=== PATIENT | female | born 1985 | race Caucasian/White ===

== ENCOUNTER 2016-09-24 22:22 | Emergency (ER) | payer OTHER ==
[~2016-09-24] VITALS: Ht 170.2 cm; Wt 96.1 kg
[~2016-09-24 22:22] MED LIST: ACET-1256 PO; IBUP-1050 PO
[2016-09-24 22:27] VITALS: Ht 170.2 cm; Wt 96.1 kg
[2016-09-24] MEDS ORDERED: ONDANSETRON INJ 2 MG/ML 2 ML VIAL IV STA (22:48)
[2016-09-24] MEDS ORDERED: MoRPHine SULFATE 4 MG/ML 1 ML CARP\\VIAL IV STA (22:48)
[2016-09-24] MEDS ORDERED: SODIUM CHLORIDE 0.9% 1000ML 1,000 ML IV STA (22:48)
--- NOTE | 2016-09-24 23:02 | EMERGENCY ROOM VISIT NOTE ---
ED Visit Note First contact with patient: 22:30 I have seen and examined this patient with Andi Jarrett and generally agree with the treatment plan as discussed. Problem List Medical Problems: (1) Asthma Status: Chronic (2) Hand pain Status: Resolved (3) Migraine Unspecified W/O Intract Mgrn W/O Status Migrainosus Status: Chronic Surgical Problems: (1) Ear surgery Status: Resolved Current/Historical Medications Scheduled PRN Acetaminophen (Tylenol), 500 MG PO Q4H PRN for Pain Ibuprofen (Advil), 400-600 MG PO Q6 PRN for Pain Allergies Coded Allergies: Cefepime (Verified Allergy, Intermediate, redness to chest, hives, itching , 09/24/16) Sulfa Antibiotics (Verified Allergy, Intermediate, HIVES, 09/24/16) Yeast (Unverified Allergy, Mild, 09/24/16) Hydrocortisone (Verified Allergy, Unknown, Hives/Rash, 09/24/16) Otic Suspenion Sulfamethoxazole w/Trimethoprim (Verified Allergy, Unknown, HIVES, 09/24/16) Nitrofurantoin (Verified Adverse Reaction, Unknown, ITCHING, 09/24/16) Vital Signs Date Time Temp Pulse Resp B/P Pulse Ox O2 Delivery O2 Flow Rate FiO2 09/24/16 22:27 37.0 80 16 138/83 98 Room Air Laboratory Results Test 09/24/16 22:48 Departure Information Referrals Oskar Weber M.D. (PCP) Patient Instructions A Signature Page
[2016-09-24 23:13] LABS: BASO % 0.2 %; BASO ABS # 0.02 K/uL (0-0.2); COMPLETE YES; HEMATOCRIT 38.5 % (37-47); IG% 0.1 %; LYMPH % 26.8 %; LYMPH ABS # 2.29 K/uL (1.2-3.4); MEAN CELL VOLUME 79.7 fL (80-100); MEAN CORPUSCULAR HEMOGLOBIN 27.7 pg (25-34); MEAN CORPUSCULAR HGB CONC 34.8 g/dl (32-36); MEAN PLATELET VOLUME 10.9 fL (7.4-10.4); MONO % 5.7 %; NEUT % 64.2 %; PLATELET COUNT 183 K/uL (130-400); RED BLOOD COUNT 4.83 M/uL (4.2-5.4); WHITE BLOOD COUNT 8.53 K/uL (4.8-10.8)
[2016-09-24 23:29] LABS: URINE APPEARANCE CLEAR (CLEAR); URINE BILIRUBIN NEG (NEG); URINE COLOR YELLOW; URINE NITRITE NEG (NEG); URINE SPECIFIC GRAVITY 1.018 (1.000-1.030); UROBILINOGEN NEG (NEG); ZZUR CULT IF INDIC CLEAN CATCH NO
[2016-09-24 23:30] LABS: MANUAL MICROSCOPIC REQUIRED? NO; REVIEW REQ? NO
[2016-09-24 23:33] LABS: BUN/CREATININE RATIO 6.9 (10-20); CALCIUM 8.9 mg/dl (8.5-10.1); CREATININE 0.74 mg/dl (0.60-1.20); POTASSIUM 3.8 mmol/L (3.5-5.1)
[2016-09-24 23:36] LABS: ALB/GLOB RATIO 1.1 (0.9-2)
[2016-09-25] MEDS ORDERED: OXYCODONE IR HOME PACK PO ONE (01:45)
[2016-09-25] MEDS ORDERED: OXYC1TAB3 PO (01:51)
--- NOTE | 2016-09-25 01:52 | EMERGENCY ROOM VISIT NOTE ---
History First contact with patient: 22:30 Chief Complaint: ABDOMINAL PAIN Stated Complaint: LOWER R SIDE PAIN Nursing Triage Summary: Triage Notes: Pt complains of right abdominal pain. It started 1 hour ago. +nausea. History of Present Illness The patient is a 31 year old female who presents to the Emergency Department by private vehicle with her significant other for evaluation of her pelvic pain. She reports onset of RIGHT-sided lower pelvic pain which started earlier today. She reports a long standing history of ovarian cysts. She had a surgery remove an ovarian cyst on the LEFT side as well as a fibroid on the RIGHT side. This was performed in April at [place]. She reports that she has been a symptom medicines. She rates her current discomfort as a 10/10. She is taking nothing [id number] for her symptoms. She denies any fevers, chills, headaches, dizziness, light headedness, chest pain, palpitations, short of breath. She denies any vaginal bleeding. She reports no vaginal discharge or drainage. She is uncertain of her status, but reports that there should be no chance for . She denies any other prior abdominal surgeries otherwise. Review of Systems A complete 10-point Review of Systems was discussed with the patient, with pertinent positives and negatives listed in the History of Present Illness. All remaining Review of Systems questions can be considered negative unless otherwise specified. Past Medical/Surgical History Medical Problems: (1) Asthma (2) Hand pain (3) Migraine Unspecified W/O Intract Mgrn W/O Status Migrainosus Surgical Problems: (1) Ear surgery Family History Cancer FH: heart disease Gallbladder disease Hypertension Social History Smoking Status: Never Smoker Smokeless Tobacco Use: No Alcohol Use: none Drug Use: none Marital Status: Housing Status: lives with significant other Occupation Status: employed Current/Historical Medications Scheduled PRN Acetaminophen (Tylenol), 500 MG PO Q4H PRN for Pain Ibuprofen (Advil), 400-600 MG PO Q6 PRN for Pain Oxycodone Ir (Roxicodone Ir), 1-2 TAB PO Q4H PRN for Pain Allergies Coded Allergies: Cefepime (Verified Allergy, Intermediate, redness to chest, hives, itching , 09/24/16) Sulfa Antibiotics (Verified Allergy, Intermediate, HIVES, 09/24/16) Yeast (Unverified Allergy, Mild, 09/24/16) Hydrocortisone (Verified Allergy, Unknown, Hives/Rash, 09/24/16) Otic Suspenion Sulfamethoxazole w/Trimethoprim (Verified Allergy, Unknown, HIVES, 09/24/16) Nitrofurantoin (Verified Adverse Reaction, Unknown, ITCHING, 09/24/16) Physical Exam Vital Signs Date Time Temp Pulse Resp B/P Pulse Ox O2 Delivery O2 Flow Rate FiO2 09/25/16 02:00 37.0 65 16 115/73 98 09/25/16 01:56 65 16 115/73 98 Room Air 09/25/16 00:28 63 16 115/79 98 Room Air 09/24/16 23:32 78 16 132/80 98 Room Air 09/24/16 22:27 37.0 80 16 138/83 98 Room Air Pain Rating (0-10): 10 Physical Exam VITAL SIGNS - Vital signs and nursing notes were reviewed. GENERAL - 31-year-old female appearing her stated age who is in no acute distress. Communicates well with provider and answers questions appropriately. LUNGS - Chest wall symmetric without accessory muscle use, intercostals retractions, or central cyanosis. Normal vesicular breath sounds CTA B/L. No wheezes, rales, or rhonchi appreciated. CARDIAC - RRR with S1/S2. No murmur, rubs, or gallops appreciated. ABDOMEN - Abdominal contour flat and without pulsations or visible masses. BS normoactive all four quadrants. Moderate tenderness to palpation appreciated in the RIGHT Lower abdomen. No guarding. No Rebound Tenderness. Negative Rovsing' s. Negative Schuster's. No palpable masses, hepatosplenomegaly, or ascites noted. PSYCH - A&Ox3 and cooperates fully with examiner. Pt is very pleasant and interacts well with examiner. Medical Decision & Procedures ER Provider Diagnostic Interpretation: Radiological imaging and reports were reviewed by myself. Radiologist's Interpretation per [facility] as follows: US PELVIC/ENDOVAG: Compared to 04/01/2016. Bilateral ovarian flow visualized. Right ovarian cysts measuring up to 3.6 cm. Previously noted left ovarian dermoid has been removed. Probable small follicle in the left ovary. Heterogeneous area a the right uterine fundus. Trace pelvic free fluid. Laboratory Results 09/24/16 23:00 Red Blood Count 4.83, Mean Corpuscular Volume 79.7, Mean Corpuscular Hemoglobin 27.7, Mean Corpuscular Hemoglobin Concent 34.8, Mean Platelet Volume 10.9, Neutrophils (%) (Auto) 64.2, Lymphocytes (%) (Auto) 26.8, Monocytes (%) (Auto) 5.7, Eosinophils (%) (Auto) 3.0, Basophils (%) (Auto) 0.2, Neutrophils # (Auto) 5.46, Lymphocytes # (Auto) 2.29, Monocytes # (Auto) 0.49, Eosinophils # (Auto) 0.26, Basophils # (Auto) 0.02 09/24/16 23:00 Test 09/24/16 23:00 White Blood Count 8.53 K/uL (4.8-10.8) Red Blood Count 4.83 M/uL (4.2-5.4) Hemoglobin 13.4 g/dL (12.0-16.0) Hematocrit 38.5 % (37-47) Mean Corpuscular Volume 79.7 fL (80-100) Mean Corpuscular Hemoglobin 27.7 pg (25-34) Mean Corpuscular Hemoglobin Concent 34.8 g/dl (32-36) Platelet Count 183 K/uL (130-400) Mean Platelet Volume 10.9 fL (7.4-10.4) Neutrophils (%) (Auto) 64.2 % Lymphocytes (%) (Auto) 26.8 % Monocytes (%) (Auto) 5.7 % Eosinophils (%) (Auto) 3.0 % Basophils (%) (Auto) 0.2 % Neutrophils # (Auto) 5.46 K/uL (1.4-6.5) Lymphocytes # (Auto) 2.29 K/uL (1.2-3.4) Monocytes # (Auto) 0.49 K/uL (0.11-0.59) Eosinophils # (Auto) 0.26 K/uL (0-0.5) Basophils # (Auto) 0.02 K/uL (0-0.2) RDW Standard Deviation 38.6 fL (36.4-46.3) RDW Coefficient of Variation 13.3 % (11.5-14.5) Immature Granulocyte % (Auto) 0.1 % Immature Granulocyte # (Auto) 0.01 K/uL (0.00-0.02) Urine Color YELLOW Urine Appearance CLEAR (CLEAR) Urine pH 8.0 (4.5-7.5) Urine Specific [place] 1.018 (1.000-1.030) Urine Protein NEG (NEG) Urine Glucose (UA) NEG (NEG) Urine Ketones NEG (NEG) Urine Occult Blood NEG (NEG) Urine Nitrite NEG (NEG) Urine Bilirubin NEG (NEG) Urine Urobilinogen NEG (NEG) Urine Leukocyte Esterase NEG (NEG) Urine Test NEG (NEG) Anion Gap 9.0 mmol/L (3-11) Est Creatinine Clear Calc Drug Dose 132.3 ml/min Estimated GFR () 126.0 Estimated GFR (Non- 108.7 BUN/Creatinine Ratio 6.9 (10-20) Calcium Level 8.9 mg/dl (8.5-10.1) Magnesium Level 2.0 mg/dl (1.8-2.4) Total Bilirubin 0.4 mg/dl (0.2-1) Aspartate Amino Transf (AST/SGOT) 31 U/L (15-37) Alanine Aminotransferase (ALT/SGPT) 34 U/L (12-78) Alkaline Phosphatase 81 U/L (45-117) Total Protein 7.4 gm/dl (6.4-8.2) Albumin 3.9 gm/dl (3.4-5.0) Globulin 3.5 gm/dl (2.5-4.0) Albumin/Globulin Ratio 1.1 (0.9-2) Lipase 213 U/L (73-393) Human Chorionic Gonadotropin, Quant < 1 mIU/mL Medications Administered Medications (Trade) Dose Ordered Sig/Jared Route Start Time Stop Time Status Last Admin Dose Admin Sodium Chloride (Nss 1000ml) 1,000 ml @ 250 mls/hr Q4H STAT IV 09/24/16 22:48 09/25/16 02:47 DC 09/24/16 23:26 250 MLS/HR Morphine Sulfate (MoRPHine SULFATE INJ) 4 mg NOW STAT IV 09/24/16 22:48 09/24/16 22:50 DC 09/24/16 23:27 4 MG Ondansetron HCl (Zofran Inj) 4 mg NOW STAT IV 09/24/16 22:48 09/24/16 22:50 DC 09/24/16 23:26 4 MG Oxycodone HCl (Roxicodone Immediate Rel 5MG Home Pack) 1 homepack UD ONCE PO 09/25/16 01:45 09/25/16 01:46 DC 09/25/16 01:52 1 HOMEPACK ED Course Patient was seen and evaluated by myself. Previous emergency room visit notes were reviewed. Labs were drawn, saline lock in place. The patient was hydrated with a 1000 mL normal saline bolus at a rate of 2 50 mL per hour. Patient was treated with 4 mg morphine and 4 mg Zofran for pain. Pelvic ultrasound was obtained. Laboratory results demonstrate no acute leukocytosis, worrisome anemia, or bandemia. The patient has no significant electrolyte abnormalities. Ultrasound results as above. Laboratory results and imaging studies were reviewed with the patient who acknowledges understanding. The patient was encouraged to follow up with her HEAT TREATING OPERATOR from today's visit. She was provided a prescription for oxycodone for breakthrough pain at home. She was educated on worrisome symptoms for return visit to the emergency department. Patient discharged home afebrile and in good condition. Medical Decision Given the patient's presentation and exam findings, I did elect to perform the above-mentioned workup. The patient presents today with pain in the RIGHT pelvic area. Her pain is moderately reproducible in this area. Her pain is not the upper abdomen or umbilical area. She has no fever leukocytosis. Ultrasound pelvic area was obtained which demonstrated a moderate sized ovarian cyst. The patient has history of similar cysts in the past. Her urine does not suggest infection. She is not . Patient's pain was adequately controlled in the emergency department. She will be provided OxyIR for breakthrough pain at home. She will follow-up with her HEAT TREATING OPERATOR from today's visit. She will return for any changing or worsening symptoms. Patient discharged home afebrile and in good condition. In the evaluation and treatment of this patient, the following differential diagnoses were considered: Ovarian torsion, rupturing cyst, ectopic, , appendicitis, diverticulitis, diverticulosis, amongst others. Impression Primary Impression: Ovarian cyst Additional Impression: Pelvic pain Departure Information Dispostion Home / Self-Care Condition GOOD Prescriptions Oxycodone Ir (Roxicodone Ir) 5 Mg Tab 1-2 TAB PO Q4H Y for Pain, #20 TAB For Initial Treatment Prov: Andi Jarrett, HUSAM 09/25/16 Referrals Oskar Weber M.D. (PCP) Patient Instructions A Signature Page Additional Instructions You have been treated in the Emergency Department your Pelvic Pain - RIGHT Ovarian Cyst. You have been prescribed OxyIR to be used for pain control. This is a narcotic medication. You cannot drive or consume alcohol while on this medicine. This medicine should only be used for pain that cannot be controlled with over-the- counter pain medicines. For pain control, you can use the following [id number] medicines (if >12 yo): - Regular strength (325mg/tab) Tylenol (acetaminophen) 2 tabs every 4-6 hours as needed. Do not exceed 12 tablets in a 24 hour period. Avoid taking more than 4 grams (4000 mg) of Tylenol per day. This includes any other sources of acetaminophen you may take on a regular basis. - Regular strength (200 mg/tab) Advil (ibuprofen) 1-2 tabs every 4-6 hours as needed. Do not exceed a dose of 3200 mg per day. Drink plenty of water and stay well hydrated. Follow-up with your HEAT TREATING OPERATOR tomorrow as discussed. Return to the emergency department if your symptoms persist despite treatment plan outlined above or if the following symptoms occur: increased fevers, chills , worsening nausea/vomiting, blood in your stool or urine.
[2016-09-25 02:00] VITALS: BP 115/73; PULSE 65; TEMP 37; O2SAT 98
--- NOTE | 2016-09-25 07:34 | DIAGNOSTIC IMAGING REPORT ---
ULTRASOUND OF THE PELVIS CLINICAL HISTORY: Right pelvic pain. COMPARISON STUDY: Pelvic CT dated 05/15/2016. Pelvic ultrasound dated 04/01/2016. TECHNIQUE: Real-time, grayscale, and color flow sonography of the pelvis is performed both transabdominally and endovaginally. Images are reviewed in the transverse and longitudinal planes. FINDINGS: Uterus: The uterus is normal in size and echotexture, measuring 8.3 x 4.2 x 5.3 cm. Endometrium: The endometrium is normal in appearance, and the endometrial stripe is normal in thickness measuring up to 0.6 cm. Ovaries: The right ovary is normal in size and morphology. The left ovary appears diminutive. The previously identified left ovarian dermoid is no longer seen. The right ovary measures 4.4 x 3.0 x 3.6 cm and the left ovary measures 1.3 x 1.1 x 1.8 cm. There are numerous bilateral ovarian follicles. A 3.6 cm cyst is incidentally noted in the right ovary. Normal Doppler waveforms are shown within both ovaries. Pelvis: There is trace free fluid in the cul-de-sac. No concerning adnexal lesion is seen. IMPRESSION: 1. No acute sonographic abnormality is seen in the pelvis. 2. A 3.6 cm right ovarian cyst is incidentally noted. There is no sonographic evidence of ovarian torsion at the time of examination. 3. There is trace and likely physiologic free fluid in the cul-de-sac. Electronically signed by: Morgan Zepeda M.D. 09/25/2016 7:32 AM Dictated Date/Time: 09/25/2016 7:29 AM
[2017-05-03] MEDS ORDERED: IBUP-1459 PO (05:21)
[2017-05-25] MEDS ORDERED: ACET-1256 PO (00:49)
== END 2016-09-25 02:01 | disposition home or self-care (01) ==
LOC: C.EDB 22:22
DX: N83.201 Unspecified ovarian cyst, right side (principal); R10.2 Pelvic and perineal pain; J45.909 Unspecified asthma, uncomplicated; Z88.1 Allergy status to other antibiotic agents; Z88.2 Allergy status to sulfonamides; Z88.3 Allergy status to other anti-infective agents

== ENCOUNTER 2016-10-10 22:04 | Emergency (ER) | payer OTHER ==
[~2016-10-10] VITALS: Ht 171.5 cm; Wt 94.6 kg
[~2016-10-10 22:04] MED LIST changes: -IBUP-1050 PO; +OXYC1TAB3 PO
[2016-10-10 22:12] VITALS: TEMP 36.7; Ht 171.5 cm; Wt 94.6 kg
[2016-10-10] MEDS ORDERED: NAPR-1161 PO (22:17)
[2016-10-10] MEDS ORDERED: SODIUM CHLORIDE 0.9% 1000ML 1,000 ML IV STA ×2 (22:30)
[2016-10-10] MEDS ORDERED: MoRPHine SULFATE 4 MG/ML 1 ML CARP\\VIAL IV STA (22:30)
[2016-10-10] MEDS ORDERED: DiphenhydrAMINE HCL 50 MG/ML VIAL IV STA (22:30)
[2016-10-10] MEDS ORDERED: METOCLOPRAMIDE HCL INJ 5 MG/ML 2 ML VIAL IV STA (22:30)
[2016-10-10] MEDS ORDERED: HYDROmorphone INJ 0.5 MG/0.5 ML SYR IV STA (22:34)
[2016-10-10 22:58] LABS: BASO % 0.2 %; BASO ABS # 0.02 K/uL (0-0.2); COMPLETE YES; EOS % 2.4 %; HEMATOCRIT 38.4 % (37-47); IG% 0.2 %; LYMPH % 27.6 %; LYMPH ABS # 2.38 K/uL (1.2-3.4); MEAN CELL VOLUME 79.8 fL (80-100); MEAN CORPUSCULAR HEMOGLOBIN 27.7 pg (25-34); MEAN CORPUSCULAR HGB CONC 34.6 g/dl (32-36); MEAN PLATELET VOLUME 11.5 fL (7.4-10.4); MONO % 5.7 %; NEUT % 63.9 %; PLATELET COUNT 184 K/uL (130-400); RED BLOOD COUNT 4.81 M/uL (4.2-5.4); WHITE BLOOD COUNT 8.62 K/uL (4.8-10.8)
[2016-10-10 23:08] LABS: MANUAL MICROSCOPIC REQUIRED? YES; URINE APPEARANCE TURBID (CLEAR); URINE BILIRUBIN NEG (NEG); URINE COLOR RED; URINE NITRITE NEG (NEG); URINE SPECIFIC GRAVITY >= 1.030 (1.000-1.030); UROBILINOGEN NEG (NEG)
[2016-10-10] MEDS ORDERED: OPTIRAY 320 IV PRN (23:15)
[2016-10-10 23:17] LABS: ALT/SGPT 25 U/L (12-78); BLOOD UREA NITROGEN 12 mg/dl (7-18); BUN/CREATININE RATIO 16.1 (10-20); CARBON DIOXIDE 26 mmol/L (21-32); CHLORIDE 108 mmol/L (98-107); CREATININE 0.72 mg/dl (0.60-1.20); GLUCOSE 82 mg/dl (70-99); POTASSIUM 3.9 mmol/L (3.5-5.1); SODIUM 143 mmol/L (136-145)
[2016-10-10 23:20] LABS: ALKALINE PHOSPHATASE 76 U/L (45-117); AST/SGOT 19 U/L (15-37)
[2016-10-10 23:22] LABS: REVIEW REQ? NO
[2016-10-10 23:25] LABS: URINE RBC >30 /hpf (0-4)
[2016-10-10 23:29] LABS: URINE BACTERIA NEG (NEG)
[2016-10-10 23:38] VITALS: O2SAT 96
[2016-10-10 23:39] LABS: PREG INTERNAL NEGATIVE QC NEG CLEAR BACKGROUND; PREG INTERNAL POSITIVE QC POS CONTROL LINE
[2016-10-11] MEDS ORDERED: KETOROLAC TROMETHAMINE 30 MG/ML VIAL IV STA (01:45)
[2016-10-11] MEDS ORDERED: ONDANSETRON HOME PACK 4MG OD TAB PO ONE (02:00)
--- NOTE | 2016-10-11 02:02 | EMERGENCY ROOM VISIT NOTE ---
ED Visit Note First contact with patient: 22:26 The patient was seen and examined with Maribel Esqueda PA-C. I agree with the history, physical and findings. Please see the note for disposition and details.
--- NOTE | 2016-10-11 02:09 | EMERGENCY ROOM VISIT NOTE ---
History First contact with patient: 22:26 Chief Complaint: ABDOMINAL PAIN Stated Complaint: SEVERE LOWER SIDE PAIN Nursing Triage Summary: pt reports right lower abd pain that she has had for 2-3 weeks, worse tonight with associated pain on the left lower side and diarrhea. reports she saw OBGYN on Wednesday, "but they weren't able to find anything." denies vomiting. denies urinary symptoms. states pain is 10/10. denies pervious medical problems. denies chance of . pt states she has her period presently. History of Present Illness The patient is a 31 year old female who presents to the Emergency Room with complaints of right lower quadrant pain described as aching, ranging in severity currently 9/10. Nothing makes it better or worse. Patient denies chest pain, dyspnea, fever, chills, vomiting, urinary symptoms, vaginal itching or discharge. No back pain. She is currently on her menstrual cycle. She does not normally get menstrual cramps this severe. Review of Systems See HPI for pertinent positives & negatives. A total of 10 systems reviewed and were otherwise negative. Past Medical/Surgical History Medical Problems: (1) Asthma (2) Hand pain (3) Migraine Unspecified W/O Intract Mgrn W/O Status Migrainosus Surgical Problems: (1) Ear surgery Family History Cancer FH: heart disease Gallbladder disease Hypertension Social History Smoking Status: Never Smoker Smokeless Tobacco Use: No Alcohol Use: none Drug Use: none Marital Status: Housing Status: lives with family, lives with significant other Occupation Status: employed Current/Historical Medications Scheduled Naproxen Sodium (Naproxen Sodium Ds), 550 MG PO DIRECTED Scheduled PRN Acetaminophen (Tylenol), 500 MG PO Q4H PRN for Pain Allergies Coded Allergies: Cefepime (Verified Allergy, Intermediate, redness to chest, hives, itching , 10/10/16) Sulfa Antibiotics (Verified Allergy, Intermediate, HIVES, 10/10/16) Yeast (Unverified Allergy, Mild, 10/10/16) Hydrocortisone (Verified Allergy, Unknown, Hives/Rash, 10/10/16) Otic Suspenion Sulfamethoxazole w/Trimethoprim (Verified Allergy, Unknown, HIVES, 10/10/16 ) Nitrofurantoin (Verified Adverse Reaction, Unknown, ITCHING, 10/10/16) Physical Exam Vital Signs Date Time Temp Pulse Resp B/P Pulse Ox O2 Delivery O2 Flow Rate FiO2 10/11/16 00:31 62 18 107/68 96 Room Air 10/10/16 23:45 64 10/10/16 23:39 65 18 127/89 96 Room Air 10/10/16 23:38 96 Room Air 10/10/16 22:12 36.7 87 20 137/83 99 Room Air Physical Exam VITALS: Vitals are noted on the nurse's note and reviewed by myself. Vital signs stable. GENERAL: Pleasant female, in no acute distress, nondiaphoretic, well-developed well-nourished. SKIN: The skin was without rashes, erythema, edema, or bruising. There is no tenting of the skin. Capillary reflex less than 2 seconds. HEAD: Normocephalic atraumatic. EARS: External auditory canals clear, tympanic membranes pearly mcgovern without erythema or effusion bilaterally. EYES: Pupils equal round and reactive to light and accommodation. Conjunctivae without injection, sclerae without icterus. Extraocular movements intact. NOSE: Patent, turbinates without inflammation or discharge. MOUTH: Mucous membranes moist. Pharynx without erythema or exudate. Uvula midline. Airway patent. Tongue does not deviate. NECK: Supple without nuchal rigidity. No lymphadenopathy. No thyromegaly. Cervical spine is nontender. No JVD. HEART: Regular rate and rhythm without murmurs gallops or rubs. LUNGS: Clear to auscultation bilaterally without wheezes, rales or rhonchi. No dullness to percussion. No retractions or accessory muscle use. ABDOMEN: Positive bowel sounds x 4. Normal tympanic percussion. Soft, tender to palpation right lower quadrant, no CVA tenderness without masses or organomegaly. Schuster sign negative. No guarding or rebound tenderness. MUSCULOSKELETAL: No muscle atrophy, erythema, or edema noted. NEURO: Patient was alert and oriented to person place and time. Normal sensation to light and sharp touch. No focal neurological deficits. Medical Decision & Procedures Laboratory Results 10/10/16 22:45 Red Blood Count 4.81, Mean Corpuscular Volume 79.8, Mean Corpuscular Hemoglobin 27.7, Mean Corpuscular Hemoglobin Concent 34.6, Mean Platelet Volume 11.5, Neutrophils (%) (Auto) 63.9, Lymphocytes (%) (Auto) 27.6, Monocytes (%) (Auto) 5.7, Eosinophils (%) (Auto) 2.4, Basophils (%) (Auto) 0.2, Neutrophils # (Auto) 5.50, Lymphocytes # (Auto) 2.38, Monocytes # (Auto) 0.49, Eosinophils # (Auto) 0.21, Basophils # (Auto) 0.02 10/10/16 22:45 Test 10/10/16 22:45 White Blood Count 8.62 K/uL (4.8-10.8) Red Blood Count 4.81 M/uL (4.2-5.4) Hemoglobin 13.3 g/dL (12.0-16.0) Hematocrit 38.4 % (37-47) Mean Corpuscular Volume 79.8 fL (80-100) Mean Corpuscular Hemoglobin 27.7 pg (25-34) Mean Corpuscular Hemoglobin Concent 34.6 g/dl (32-36) Platelet Count 184 K/uL (130-400) Mean Platelet Volume 11.5 fL (7.4-10.4) Neutrophils (%) (Auto) 63.9 % Lymphocytes (%) (Auto) 27.6 % Monocytes (%) (Auto) 5.7 % Eosinophils (%) (Auto) 2.4 % Basophils (%) (Auto) 0.2 % Neutrophils # (Auto) 5.50 K/uL (1.4-6.5) Lymphocytes # (Auto) 2.38 K/uL (1.2-3.4) Monocytes # (Auto) 0.49 K/uL (0.11-0.59) Eosinophils # (Auto) 0.21 K/uL (0-0.5) Basophils # (Auto) 0.02 K/uL (0-0.2) RDW Standard Deviation 37.5 fL (36.4-46.3) RDW Coefficient of Variation 12.9 % (11.5-14.5) Immature Granulocyte % (Auto) 0.2 % Immature Granulocyte # (Auto) 0.02 K/uL (0.00-0.02) Urine Color RED Urine Appearance TURBID (CLEAR) Urine pH 6.0 (4.5-7.5) Urine Specific [place] >= 1.030 (1.000-1.030) Urine Protein 1+ (NEG) Urine Glucose (UA) NEG (NEG) Urine Ketones NEG (NEG) Urine Occult Blood 3+ (NEG) Urine Nitrite NEG (NEG) Urine Bilirubin NEG (NEG) Urine Urobilinogen NEG (NEG) Urine Leukocyte Esterase NEG (NEG) Urine RBC >30 /hpf (0-4) Urine WBC 10-30 /hpf (0-5) Urine Epithelial Cells >30 /lpf (0-5) Urine Bacteria NEG (NEG) Anion Gap 9.0 mmol/L (3-11) Est Creatinine Clear Calc Drug Dose 136.2 ml/min Estimated GFR () 130.2 Estimated GFR (Non- 112.4 BUN/Creatinine Ratio 16.1 (10-20) Calcium Level 9.0 mg/dl (8.5-10.1) Total Bilirubin 0.3 mg/dl (0.2-1) Direct Bilirubin < 0.1 mg/dl (0-0.2) Aspartate Amino Transf (AST/SGOT) 19 U/L (15-37) Alanine Aminotransferase (ALT/SGPT) 25 U/L (12-78) Alkaline Phosphatase 76 U/L (45-117) Total Protein 7.3 gm/dl (6.4-8.2) Albumin 4.5 gm/dl (3.4-5.0) Lipase 384 U/L (73-393) Human Chorionic Gonadotropin, Qual NEG (NEG) Medications Administered Medications (Trade) Dose Ordered Sig/Jared Route Start Time Stop Time Status Last Admin Dose Admin Sodium Chloride 1,000 ml @ 999 mls/hr Q1H1M STAT IV 10/10/16 22:30 10/10/16 23:30 DC 10/10/16 23:31 999 MLS/HR Sodium Chloride (Nss 1000ml) 1,000 ml @ 200 mls/hr Q5H STAT IV 10/10/16 22:30 10/11/16 03:29 10/11/16 01:24 200 MLS/HR Metoclopramide HCl (Reglan Inj) 10 mg NOW STAT IV 10/10/16 22:30 10/10/16 22:32 DC 10/10/16 23:36 10 MG Diphenhydramine HCl (Benadryl Inj) 25 mg NOW STAT IV 10/10/16 22:30 10/10/16 22:32 DC 10/10/16 23:34 25 MG Hydromorphone HCl (Dilaudid Inj) 0.5 mg NOW STAT IV 10/10/16 22:34 10/10/16 22:35 DC 10/10/16 23:32 0.5 MG Ketorolac Tromethamine (Toradol Inj) 30 mg NOW STAT IV 10/11/16 01:45 10/11/16 01:46 DC 10/11/16 01:52 30 MG ED Course Prior records/ancillary studies reviewed. Triage Nursing notes reviewed. Additional history obtained from family The patient's history was concerning for abdominal pain. Differential diagnosis: Etiologies such as appendicitis, diverticulitis, PUD, biliary pathology, UTI, pancreatitis, obstruction, mesenteric ischemia, aortic pathology, infections, inflammatory bowel disease, renal colic, as well as others were entertained. Physical examination findings: As above. ER treatment provided: Zofran, morphine, Toradol On reassessment the patient felt better. Diagnostics interpreted by me: The labs revealed no leukocytosis. Negative urine negative hCG Imaging studies: CT ABDOMEN & PELVIS: Comparison CT of the abdomen and pelvis 10/01/2016. The appendix is diminutive in size without evidence of surrounding inflammatory change. No free fluid. No free air. The bowel is normal in caliber. The liver, spleen, pancreas, gallbladder and kidneys are unremarkable. Stable appearance of the right ovary. Bibasilar atelectasis. Radiologist: Himanshu Han MD Exam and history significant with abdominal pain most likely related to menstrual cycle. Patient had unremarkable workup as above. Negative hCG. No leukocytosis. She was advised to rest, stay well-hydrated and to follow-up with family care in a day or 2 or here in the ER sooner for abdominal pain, fevers, vomiting, worsening signs or symptoms or as needed.By the evaluation outlined above emergent etiologies such as appendicitis, diverticulitis, PUD, biliary pathology, UTI, pancreatitis, obstruction, mesenteric ischemia, aortic pathology, infections, inflammatory bowel disease, renal colic, as well as others were deemed relatively unlikely. The pt informed about the findings as listed above. All questions were answered and pleased with the treatment. Return instructions were outlined and the patient was discharged in stable condition. Referral: The patient was referred back to their primary care physician for follow-up in 2 to 3 days for a recheck of the current condition. Case reviewed by attending Medical Decision as above Impression Primary Impression: Right lower quadrant abdominal pain Departure Information Referrals Oskar Weber M.D. (PCP) Patient Instructions My [facility]
[2016-10-11 02:16] VITALS: BP 110/77; PULSE 69; O2SAT 97
--- NOTE | 2016-10-11 07:25 | DIAGNOSTIC IMAGING REPORT ---
APPENDICEAL ULTRASOUND CLINICAL HISTORY: Right lower quadrant abdominal pain COMPARISON STUDY: 11/30/2015 FINDINGS: The appendix was not visualized. There are no abnormal fluid collections within the right lower quadrant. IMPRESSION: Nonvisualization of the appendix. This study is therefore nondiagnostic in regards to acute appendicitis. Electronically signed by: Arturo Reyes M.D. 10/11/2016 7:23 AM Dictated Date/Time: 10/11/2016 7:23 AM
--- NOTE | 2016-10-11 07:49 | DIAGNOSTIC IMAGING REPORT ---
CT ABD/PELVIS IV AND ORAL CONT CLINICAL HISTORY: Severe generalized abdominal pain COMPARISON STUDY: 10/01/2016 TECHNIQUE: Following the IV administration of 94 mL of Optiray-320, CT scan of the abdomen and pelvis was performed from the lung bases to the proximal femurs. Images are reviewed in the axial, sagittal, and coronal planes. IV contrast was administered without complication. CT DOSE: 770.45 mGy.cm FINDINGS: Lower chest: There are bibasal atelectatic changes. Liver: The contrast-enhanced liver is normal in size, contour, and attenuation. There is no intrahepatic biliary ductal dilatation. The hepatic veins and portal veins are patent. Gallbladder: Unremarkable. Spleen: The spleen remains borderline enlarged measuring 11.7 cm Pancreas: Unremarkable. Adrenal glands: Unremarkable. Kidneys: There is symmetric renal cortical enhancement. The kidneys are normal in size without hydronephrosis. Bowel: There are no transition zones indicate bowel obstruction. There are no findings to indicate acute appendicitis. There is no evidence of acute diverticulitis. Peritoneum: There is no intraperitoneal free air or abdominal ascites. Vasculature: The abdominal aorta is normal in course and caliber. Adenopathy: None. Pelvic viscera: The right ovary remains mildly prominent likely contains multiple follicles. Skeletal structures: No destructive osseous lesions are seen. IMPRESSION: No acute intra-abdominal or pelvic findings. Bibasal atelectasis. No evidence of bowel obstruction. No evidence of free air. No evidence of acute appendicitis. Electronically signed by: Arturo Reyes M.D. 10/11/2016 7:48 AM Dictated Date/Time: 10/11/2016 7:44 AM
[2017-05-03] MEDS ORDERED: IBUP-1459 PO (05:21)
[2017-05-25] MEDS ORDERED: ACET-1256 PO (00:49)
== END 2016-10-11 02:16 | disposition home or self-care (01) ==
LOC: C.EDB 22:05 → C.EDC 10-11 02:16
DX: R10.31 Right lower quadrant pain (principal); J45.909 Unspecified asthma, uncomplicated; Z82.49 Family history of ischemic heart disease and other diseases of the circulatory system

== ENCOUNTER 2016-10-22 23:54 | Emergency (ER) | payer OTHER ==
[~2016-10-22] VITALS: Ht 170.2 cm; Wt 96.3 kg
[~2016-10-22 23:54] MED LIST changes: +NAPR-1161 PO; -OXYC1TAB3 PO
[2016-10-22 23:56] VITALS: BP 155/88; PULSE 79; TEMP 36.8; O2SAT 98; Ht 170.2 cm; Wt 96.3 kg
[2016-10-23] MEDS ORDERED: OXYC1TAB3 PO (00:15)
[2016-10-23] MEDS ORDERED: OXYCODONE IR HOME PACK PO ONE (00:15)
--- NOTE | 2016-10-23 02:01 | EMERGENCY ROOM VISIT NOTE ---
History Report prepared by Phyllis: Fatou Eldridge Under the Supervision of: Dr. Dioni Layton M.D. First contact with patient: 00:02 Chief Complaint: BACK PAIN Stated Complaint: BACK PAIN History of Present Illness The patient is a 31 year old female who presents to the Emergency Room with complaints of constant back pain beginning this morning. She woke up with back pain today. Movement exacerbates her pain and she rates her pain as a 10/10 in severity. She reports a history of a pinched nerve a couple of years ago. She did not do anything unusual to injure her back. The patient denies doing any heavy lifting or bending. She denies pain radiating down her legs. She denies numbness, weakness, fever, vomiting, abdominal pain, urinary symptoms, incontinence, and chance of . She also denies any recent falls. Source of History: patient Onset: this morning Position: back Symptom Intensity: 10/10 Timing: constant Modifying Factors (Worsening): movement Associated Symptoms: No fevers, No numbness, No urinary symptoms, No vomiting, No weakness Review of Systems See HPI for pertinent positives & negatives. A total of 10 systems reviewed and were otherwise negative. Past Medical & Surgical Medical Problems: (1) Asthma (2) Hand pain (3) Migraine Unspecified W/O Intract Mgrn W/O Status Migrainosus Surgical Problems: (1) Ear surgery Family History Cancer FH: heart disease Gallbladder disease Hypertension Social History Smoking Status: Never Smoker Alcohol Use: none Drug Use: none Marital Status: Housing Status: lives with family, lives with significant other Occupation Status: employed Current/Historical Medications Scheduled Naproxen Sodium (Naproxen Sodium Ds), 550 MG PO DIRECTED Scheduled PRN Acetaminophen (Tylenol), 500 MG PO Q4H PRN for Pain Oxycodone Ir (Roxicodone Ir), 5 MG PO Q4H PRN for Pain Allergies Coded Allergies: Cefepime (Verified Allergy, Intermediate, redness to chest, hives, itching , 10/23/16) Sulfa Antibiotics (Verified Allergy, Intermediate, HIVES, 10/23/16) Yeast (Unverified Allergy, Mild, 10/23/16) Hydrocortisone (Verified Allergy, Unknown, Hives/Rash, 10/23/16) Otic Suspenion Sulfamethoxazole w/Trimethoprim (Verified Allergy, Unknown, HIVES, 10/23/16) Nitrofurantoin (Verified Adverse Reaction, Unknown, ITCHING, 10/23/16) Physical Exam Vital Signs Date Time Temp Pulse Resp B/P Pulse Ox O2 Delivery O2 Flow Rate FiO2 10/22/16 23:56 36.8 79 18 155/88 98 Room Air Physical Exam Constitutional: Vital signs reviewed. Eyes: Pupils are equal round reactive to light. Conjunctiva are noninjected. ENT: Pharynx is clear without erythema or exudate. Mucous membranes are moist. Neck supple without meningeal signs. Respiratory: Clear to auscultation bilaterally. Breath sounds are equal bilaterally. Cardiovascular: Regular rate and rhythm. No rubs or gallops. GI: Soft, nondistended and nontender. Bowel sounds are present. Musculoskeletal: No peripheral edema. No lower extremity tenderness. No CVA tenderness. Positive straight leg raise bilaterally with perispinal muscle tenderness on the right side Integumentary: No cyanosis. Neurological: The patient is awake and alert. No focal deficits. Normal motor and sensation in the lower extremities. Psychiatric: Normal affect. Medical Decision & Procedures ED Course 0002: The patient was evaluated in room A11B. A complete history and physical exam was performed. 0014: I reviewed the patient on PDMP. She received Tylenol with codeine on . I talked to her about it. She states that she took 2 today but the did not help her pain. I advised her not to continue the Tylenol with codeine. I updated the patient on the treatment plan. I answered all pertaining questions that she had. She expressed understanding and verbalized agreement. The patient will be discharged home. 0015: Oxycodone HCl 1 homepack PO Medical Decision This is a 31-year-old female presents with low back pain. Differential diagnosis includes strain, lumbar disc disease, radiculopathy. I did perform a limited focused review of portions of the patient's old chart on the electronic medical record. The patient was here on Oct 10 for RLQ abdominal pain. She had a normal CT scan without signs of appendicitis and was discharged home. I did evaluate the patient as noted above. The patient is presenting with low back pain without any history of trauma. She does state that she has had a pinched nerve in the past. She is neurologically intact and has no signs of cauda equina syndrome. She denies any history of trauma and so I did not feel x -rays were indicated. She was given a prescription for oxycodone and advised not to take this with her codeine which she states was ineffective for her. She was discharged in good condition and given return instructions as outlined below. [place] Drug Monitoring Program Search Results: patient reviewed within database Impression Primary Impression: Low back pain Scribe Attestation The scribe's documentation has been prepared under my direct and personally reviewed by me in its entirety. I confirm that the note above accurately reflects all work, treatment, procedures, and medical decision making performed by me. Departure Information Dispostion Home / Self-Care Prescriptions Oxycodone Ir (Roxicodone Ir) 5 Mg Tab 5 MG PO Q4H Y for Pain, #20 TAB Prov: Dioni Layton M.D. 10/23/16 Referrals Oskar Weber M.D. (PCP) Forms HOME CARE DOCUMENTATION FORM, IMPORTANT VISIT INFORMATION Patient Instructions ED Back Pain Acute Chronic, My [facility] Additional Instructions You have been examined and treated today on an emergency basis only. This is not a substitute for, or an effort to provide, complete comprehensive medical care. It is impossible to recognize and treat all injuries or illnesses in a single emergency department visit. It is therefore important that you follow up closely with your physician. Call as soon as possible for an appointment. Return for worsening symptoms or if you develop fever, vomiting, abdominal pain , loss of control of your bowel or bladder, numbness or weakness to your legs, numbness to your private area, difficulty urinating, or any other concerning symptoms. Do not take the codeine with oxycodone. Problem Qualifiers Primary Impression: Low back pain Chronicity: acute Back pain laterality: unspecified Sciatica presence: unspecified whether sciatica present Qualified Codes: M54.5 - Low back pain
[2017-05-03] MEDS ORDERED: IBUP-1459 PO (05:21)
[2017-05-25] MEDS ORDERED: ACET-1256 PO (00:49)
== END 2016-10-23 00:25 | disposition home or self-care (01) ==
LOC: C.EDB 23:54 → C.EDA 10-23 00:25
DX: M54.5 Low back pain (principal); J45.909 Unspecified asthma, uncomplicated

== ENCOUNTER 2016-11-01 02:18 | Emergency (ER) | payer OTHER ==
[~2016-11-01] VITALS: Ht 170.2 cm; Wt 96.0 kg
[~2016-11-01 02:18] MED LIST changes: +OXYC1TAB3 PO
[2016-11-01 02:24] VITALS: TEMP 36.8; Ht 170.2 cm; Wt 96.0 kg
[2016-11-01] MEDS ORDERED: ACETTAB PO (02:34)
[2016-11-01] MEDS ORDERED: KETOROLAC TROMETHAMINE 30 MG/ML VIAL IV STA (02:37)
[2016-11-01 03:06] LABS: BASO % 0.1 %; BASO ABS # 0.01 K/uL (0-0.2); COMPLETE YES; EOS % 2.8 %; HEMATOCRIT 36.7 % (37-47); IG% 0.1 %; LYMPH % 33.2 %; LYMPH ABS # 2.38 K/uL (1.2-3.4); MANUAL MICROSCOPIC REQUIRED? YES; MEAN CELL VOLUME 78.9 fL (80-100); MEAN CORPUSCULAR HEMOGLOBIN 27.5 pg (25-34); MEAN CORPUSCULAR HGB CONC 34.9 g/dl (32-36); MEAN PLATELET VOLUME 11.1 fL (7.4-10.4); MONO % 7.4 %; NEUT % 56.4 %; PLATELET COUNT 180 K/uL (130-400); RED BLOOD COUNT 4.65 M/uL (4.2-5.4); URINE APPEARANCE SL CLOUDY (CLEAR); URINE BILIRUBIN NEG (NEG); URINE COLOR YELLOW; URINE NITRITE NEG (NEG); URINE SPECIFIC GRAVITY >= 1.030 (1.000-1.030); UROBILINOGEN NEG (NEG); WHITE BLOOD COUNT 7.17 K/uL (4.8-10.8)
[2016-11-01 03:11] LABS: REVIEW REQ? NO
[2016-11-01 03:13] LABS: URINE BACTERIA 1+ (NEG); URINE RBC >30 /hpf (0-4); URINE WBC 0 /hpf (0-5); ZZUR CULT IF INDIC CLEAN CATCH YES
[2016-11-01 03:22] LABS: BUN/CREATININE RATIO 10.6 (10-20); CALCIUM 8.5 mg/dl (8.5-10.1); CREATININE 0.8 mg/dl (0.60-1.20); POTASSIUM 3.5 mmol/L (3.5-5.1)
[2016-11-01 03:24] LABS: ALB/GLOB RATIO 1.2 (0.9-2)
[2016-11-01] MEDS ORDERED: ONDANSETRON INJ 2 MG/ML 2 ML VIAL IV STA (03:25)
[2016-11-01 03:30] LABS: BENZODIAZEPINE, URINE NEG (NEG); COCAINE,URINE NEG (NEG); PHENCYCLIDINE, URINE NEG (NEG)
[2016-11-01 04:29] VITALS: BP 112/79; PULSE 81; O2SAT 95
--- NOTE | 2016-11-01 23:21 | EMERGENCY ROOM VISIT NOTE ---
History First contact with patient: 02:27 Chief Complaint: FLANK PAIN Stated Complaint: RIGHT SIDE PAIN History of Present Illness The patient is a 31 year old female who presents to the Emergency Room with complaints of right-sided flank/low back pain worsening over the past one day. The patient states that she started her menstrual cycle today, and she took Midol at home without relief of symptoms. The patient has had similar pain in the past. Her last episode was one month ago, where she was also seen here in the department at the start of her menses. The patient has not had fever or chills. No chest pain or shortness of breath. She is not having pelvic pain. She rates her discomfort a 9/10 without radiation. Review of Systems More than 10 systems were reviewed and otherwise negative with the exception of history of present illness. Past Medical/Surgical History Medical Problems: (1) Asthma (2) Hand pain (3) Migraine Unspecified W/O Intract Mgrn W/O Status Migrainosus Surgical Problems: (1) Ear surgery Family History Cancer FH: heart disease Gallbladder disease Hypertension Social History Smoking Status: Never Smoker Alcohol Use: none Drug Use: none Marital Status: Housing Status: lives with family, lives with significant other Occupation Status: employed Current/Historical Medications Scheduled PRN Acetaminophen (Tylenol), 500 MG PO Q4H PRN for Pain Ckbtulqubhjma-Lpoxilwv-Flbddda (Midol Maximum Strength Me), 1 TAB PO UD PRN for Pain Naproxen Sodium (Naproxen Sodium Ds), 550 MG PO TID PRN for Pain Allergies Coded Allergies: Cefepime (Verified Allergy, Intermediate, redness to chest, hives, itching , 10/23/16) Sulfa Antibiotics (Verified Allergy, Intermediate, HIVES, 10/23/16) Yeast (Unverified Allergy, Mild, 10/23/16) Hydrocortisone (Verified Allergy, Unknown, Hives/Rash, 10/23/16) Otic Suspenion Sulfamethoxazole w/Trimethoprim (Verified Allergy, Unknown, HIVES, 10/23/16) Nitrofurantoin (Verified Adverse Reaction, Unknown, ITCHING, 10/23/16) Physical Exam Vital Signs Date Time Temp Pulse Resp B/P Pulse Ox O2 Delivery O2 Flow Rate FiO2 11/01/16 04:29 81 18 112/79 95 11/01/16 02:24 36.8 87 18 128/74 98 Room Air Pain Rating (0-10): 2.0 Physical Exam VITALS: Vitals are noted on the nurse's note and reviewed by myself. Vital signs stable. GENERAL: Well-developed, well-nourished, white female, who is in no acute distress and resting comfortably. Patient is cooperative with the examination. HEAD: Normocephalic atraumatic. HEART: Regular rate and rhythm without murmurs gallops or rubs. LUNGS: Clear to auscultation bilaterally without wheezes, rales or rhonchi. No retractions or accessory muscle use. ABDOMEN: Positive normal bowel sounds x 4. Soft, nontender, without masses or organomegaly. No guarding or rebound tenderness. MUSCULOSKELETAL: No muscle atrophy, erythema, or edema noted. Full range of motion without joint tenderness in all extremities. No CVA tenderness or significant lower lumbar spine tenderness. NEURO: Patient was alert and oriented to person place and time. CN II through XII grossly intact. Deep tendon reflexes 2+ throughout. Medical Decision & Procedures Laboratory Results 11/01/16 02:51 Red Blood Count 4.65, Mean Corpuscular Volume 78.9, Mean Corpuscular Hemoglobin 27.5, Mean Corpuscular Hemoglobin Concent 34.9, Mean Platelet Volume 11.1, Neutrophils (%) (Auto) 56.4, Lymphocytes (%) (Auto) 33.2, Monocytes (%) (Auto) 7.4, Eosinophils (%) (Auto) 2.8, Basophils (%) (Auto) 0.1, Neutrophils # (Auto) 4.04, Lymphocytes # (Auto) 2.38, Monocytes # (Auto) 0.53, Eosinophils # (Auto) 0.20, Basophils # (Auto) 0.01 11/01/16 02:51 Test 11/01/16 02:51 White Blood Count 7.17 K/uL (4.8-10.8) Red Blood Count 4.65 M/uL (4.2-5.4) Hemoglobin 12.8 g/dL (12.0-16.0) Hematocrit 36.7 % (37-47) Mean Corpuscular Volume 78.9 fL (80-100) Mean Corpuscular Hemoglobin 27.5 pg (25-34) Mean Corpuscular Hemoglobin Concent 34.9 g/dl (32-36) Platelet Count 180 K/uL (130-400) Mean Platelet Volume 11.1 fL (7.4-10.4) Neutrophils (%) (Auto) 56.4 % Lymphocytes (%) (Auto) 33.2 % Monocytes (%) (Auto) 7.4 % Eosinophils (%) (Auto) 2.8 % Basophils (%) (Auto) 0.1 % Neutrophils # (Auto) 4.04 K/uL (1.4-6.5) Lymphocytes # (Auto) 2.38 K/uL (1.2-3.4) Monocytes # (Auto) 0.53 K/uL (0.11-0.59) Eosinophils # (Auto) 0.20 K/uL (0-0.5) Basophils # (Auto) 0.01 K/uL (0-0.2) RDW Standard Deviation 36.4 fL (36.4-46.3) RDW Coefficient of Variation 12.7 % (11.5-14.5) Immature Granulocyte % (Auto) 0.1 % Immature Granulocyte # (Auto) 0.01 K/uL (0.00-0.02) Urine Color YELLOW Urine Appearance SL CLOUDY (CLEAR) Urine pH 6.0 (4.5-7.5) Urine Specific [place] >= 1.030 (1.000-1.030) Urine Protein 1+ (NEG) Urine Glucose (UA) NEG (NEG) Urine Ketones NEG (NEG) Urine Occult Blood 3+ (NEG) Urine Nitrite NEG (NEG) Urine Bilirubin NEG (NEG) Urine Urobilinogen NEG (NEG) Urine Leukocyte Esterase NEG (NEG) Urine RBC >30 /hpf (0-4) Urine WBC 0 /hpf (0-5) Urine Epithelial Cells >30 /lpf (0-5) Urine Bacteria 1+ (NEG) Anion Gap 12.0 mmol/L (3-11) Est Creatinine Clear Calc Drug Dose 122.3 ml/min Estimated GFR () 114.7 Estimated GFR (Non- 98.9 BUN/Creatinine Ratio 10.6 (10-20) Calcium Level 8.5 mg/dl (8.5-10.1) Total Bilirubin 0.3 mg/dl (0.2-1) Aspartate Amino Transf (AST/SGOT) 18 U/L (15-37) Alanine Aminotransferase (ALT/SGPT) 25 U/L (12-78) Alkaline Phosphatase 73 U/L (45-117) Total Protein 7.1 gm/dl (6.4-8.2) Albumin 3.9 gm/dl (3.4-5.0) Globulin 3.2 gm/dl (2.5-4.0) Albumin/Globulin Ratio 1.2 (0.9-2) Lipase 256 U/L (73-393) Urine Opiates Screen POS (NEG) Urine Methadone, Qualitative NEG (NEG) Urine Barbiturates NEG (NEG) Urine Phencyclidine (PCP) Level NEG (NEG) Ur Amphetamine/Methamphetamine NEG (NEG) MDMA (Ecstasy) Screen NEG (NEG) Urine Benzodiazepines Screen NEG (NEG) Urine Cocaine Metabolite NEG (NEG) Urine Marijuana (THC) NEG (NEG) Medications Administered Medications (Trade) Dose Ordered Sig/Jared Route Start Time Stop Time Status Last Admin Dose Admin Ketorolac Tromethamine (Toradol Inj) 30 mg NOW STAT IV 11/01/16 02:37 11/01/16 02:39 DC 11/01/16 02:50 30 MG Ondansetron HCl (Zofran Inj) 4 mg NOW STAT IV 11/01/16 03:25 11/01/16 03:27 DC 11/01/16 03:25 4 MG ED Course Physical exam and history were performed. Nursing notes and EMR were reviewed. Patient appears to have right-sided flank pain/right sided low back pain for the past one day. She started her menstrual cycle today. The patient is well- known to the emergency department and has been seen several times with this and similar complaints. In the past 10 months she has had 8 CT scans of her abdomen and pelvis as well as several ultrasounds. The patient has a concerning history of drug-seeking behavior from previous visits. Because of this I did not initially order imaging studies. IV access was established and labs were obtained. The patient was given IV Toradol here in the department for comfort. The patient's blood work is as above and was reviewed. She does not have a significantly elevated white blood cell count, anemia, bandemia, or gross electrolyte imbalance. Lipase and transaminases are nondiagnostic. Urinalysis is without evidence of infection. Drug of abuse screen did show opioids, and the patient states that she has not taken any medication like this. Review of her drug monitoring profile shows that she has not had prescriptions of narcotics in several months. I am concerned at this discrepancy. Overall the patient appears stable for discharge home. With normal blood work and urine, as well as symptoms that have occurred several times in the past with no significant findings on imaging I feel that she should follow with her PCP and SCREEN TENDER HELPER. The patient will not be provided prescription pain medication, and instead should use nzxa-skf-dkmuwue ibuprofen and Tylenol. She was otherwise invited back to the ER with any new, worsening, or concerning symptoms. The chart was completed utilizing [employer] Speech Voice Recognition Software. Grammatical errors, random word insertions, pronoun errors, and incomplete sentences are an occasional consequence of this system due to software limitations, ambient noise, and hardware issues. Any formal questions or concerns about the content, text, or information contained within the body of this dictation should be directly addressed to the provider for clarification. . Medical Decision Differential diagnosis: Etiologies such as appendicitis, diverticulitis, PUD, biliary pathology, UTI, pancreatitis, obstruction, mesenteric ischemia, aortic pathology, infections, inflammatory bowel disease, renal colic, as well as others were entertained. Impression Primary Impression: Right flank pain Departure Information Dispostion Home / Self-Care Condition GOOD Forms HOME CARE DOCUMENTATION FORM, IMPORTANT VISIT INFORMATION Patient Instructions My [facility] Additional Instructions You were seen and evaluated today on an emergency basis only. This is not a substitute for, or an effort to provide, complete comprehensive medical care. It is not possible to recognize and treat all injuries or illnesses in a single emergency department visit. For this reason it is recommended that you followup with your primary care physician or SCREEN TENDER HELPER for ongoing care and evaluation. Contact the office this week for further management. For baseline pain relief you may alternate ibuprofen and acetaminophen every 4 hours for pain control. Take 600 mg ibuprofen (Advil) and then 4 hours later take 1000 mg acetaminophen (Tylenol). Do not take more than 3000 mg acetaminophen in a single day. You are welcome to return to the emergency department anytime with new, worsening, or concerning symptoms.
[2016-11-04 11:21] LABS: COD UR 66 NG/ML (CUTOFF=50); HYDROCOD UR NEGATIVE NG/ML (CUTOFF=50); HYDROMOR UR NEGATIVE NG/ML (CUTOFF=50); MORPHINE UR 557 NG/ML (CUTOFF=50); NORHYDROCODONE CONF UR NEGATIVE NG/ML (CUTOFF=50); OXYMORPH UR NEGATIVE NG/ML (CUTOFF=50)
[2017-05-03] MEDS ORDERED: IBUP-1459 PO (05:21)
[2017-05-25] MEDS ORDERED: ACET-1256 PO (00:49)
== END 2016-11-01 04:30 | disposition home or self-care (01) ==
LOC: C.EDB 02:19 → C.EDA 04:30
DX: R10.9 Unspecified abdominal pain (principal); J45.909 Unspecified asthma, uncomplicated; G43.909 Migraine, unspecified, not intractable, without status migrainosus

== ENCOUNTER 2016-11-05 22:19 | Emergency (ER) | payer OTHER ==
[~2016-11-05] VITALS: Ht 171.5 cm; Wt 94.9 kg
[~2016-11-05 22:19] MED LIST changes: +ACETTAB PO; -OXYC1TAB3 PO
[2016-11-05 22:29] VITALS: TEMP 37.1; Ht 171.5 cm; Wt 94.9 kg
[2016-11-05] MEDS ORDERED: METH4PAK PO (23:31)
--- NOTE | 2016-11-05 23:32 | EMERGENCY ROOM VISIT NOTE ---
ED Visit Note First contact with patient: 23:11 CHIEF COMPLAINT: Rash HISTORY OF PRESENT ILLNESS: This 31-year-old female patient presents to the emergency department ambulatory complaining of a rash to the face which started 2 weeks ago. The patient denies fever, chills, nausea, or loss of appetite. They deny any URI symptoms. The patient has tried Benadryl cream. The patient states the rash is itchy and burning and rates the discomfort as 8/10. No change in food, soap, detergents, or other environmental factors. No new medications. No weakness or numbness. REVIEW OF SYSTEMS: A 6 system review of systems was completed with positives and pertinent negatives listed in the HPI. ALLERGIES: See nursing notes of note, the patient has hydrocortisone listed as an allergy but she states she can take prednisone MEDICATIONS: Patient denies PMH: The patient denies SOCIAL HISTORY: The patient does not smoke. She lives locally PHYSICAL EXAM: Vital Signs: Reviewed Nurse's notes, vital signs stable. GENERAL : This is a 31-year-old female, in no acute distress, well-developed, well- nourished. SKIN: There are a few pustules on the face which may represent acne. There is a diffuse, very fine, dry, erythematous rash over the face which has the appearance of an atopic dermatitis. Capillary refill less than 2 seconds. EMERGENCY DEPARTMENT COURSE: The patient has a rash to her face for the last 2 weeks. Has the appearance of a contact or atopic dermatitis. She is encouraged to use a good moisturizing cream to the face. She was advised to try some antibiotic ointment on the pustules. She will be given a Medrol Dosepak. She should recheck with her family doctor next week. She should return with any worsening symptoms. Problem List Medical Problems: (1) Asthma Status: Chronic (2) Hand pain Status: Resolved (3) Migraine Unspecified W/O Intract Mgrn W/O Status Migrainosus Status: Chronic Surgical Problems: (1) Ear surgery Status: Resolved Current/Historical Medications Scheduled Methylprednisolone (Medrol Dosepak), 1 PKT PO UD Scheduled PRN Acetaminophen (Tylenol), 500 MG PO Q4H PRN for Pain Bejblprwwkskq-Mkubowgr-Khjfxnl (Midol Maximum Strength Me), 1 TAB PO UD PRN for Pain Naproxen Sodium (Naproxen Sodium Ds), 550 MG PO TID PRN for Pain Allergies Coded Allergies: Cefepime (Verified Allergy, Intermediate, redness to chest, hives, itching , 10/23/16) Sulfa Antibiotics (Verified Allergy, Intermediate, HIVES, 10/23/16) Yeast (Unverified Allergy, Mild, 10/23/16) Hydrocortisone (Verified Allergy, Unknown, Hives/Rash, 10/23/16) Otic Suspenion Sulfamethoxazole w/Trimethoprim (Verified Allergy, Unknown, HIVES, 10/23/16) Nitrofurantoin (Verified Adverse Reaction, Unknown, ITCHING, 10/23/16) Vital Signs Date Time Temp Pulse Resp B/P Pulse Ox O2 Delivery O2 Flow Rate FiO2 11/05/16 22:29 37.1 65 18 126/83 97 Room Air Medications Administered Medications (Trade) Dose Ordered Sig/Jared Route Start Time Stop Time Status Last Admin Dose Admin Prednisone (PredniSONE TAB) 20 mg NOW STAT PO 11/05/16 23:21 11/05/16 23:22 DC 11/05/16 23:30 20 MG Departure Information Impression Primary Impression: Dermatitis Dispostion Home / Self-Care Condition GOOD Prescriptions Methylprednisolone (MEDROL DOSEPAK) 4 Mg Gregorio 1 PKT PO UD, #1 PKT Prov: Peggy Joel PA-C 11/05/16 Referrals Oskar Weber M.D. (PCP) Patient Instructions ED Dermatitis Contact, My [facility] Additional Instructions Use a good moisturizing cream and apply it to the face 2-3 times daily for the next 5-7 days You may try antibiotic ointment on the small pustules Medrol Dosepak as prescribed Follow up with your family doctor next week if symptoms are not improving. Return with worsening symptoms.
[2016-11-06 00:04] VITALS: BP 126/82; PULSE 69; O2SAT 97
[2017-05-03] MEDS ORDERED: IBUP-1459 PO (05:21)
[2017-05-25] MEDS ORDERED: ACET-1256 PO (00:49)
== END 2016-11-06 00:04 | disposition home or self-care (01) ==
LOC: C.EDB 22:21 → C.EDA 11-06 00:04
DX: L30.9 Dermatitis, unspecified (principal); J45.909 Unspecified asthma, uncomplicated; G43.909 Migraine, unspecified, not intractable, without status migrainosus

== ENCOUNTER 2016-12-20 03:15 | Emergency (ER) | payer OTHER ==
[~2016-12-20] VITALS: Ht 170.2 cm; Wt 96.1 kg
[~2016-12-20 03:15] MED LIST changes: -ACETTAB PO; +ACETTAB43 PO
[2016-12-20 03:20] VITALS: Ht 170.2 cm; Wt 96.1 kg
[2016-12-20] MEDS ORDERED: SODIUM CHLORIDE 0.9% 1000ML 500 ML IV STA (03:36)
[2016-12-20] MEDS ORDERED: KETOROLAC TROMETHAMINE 30 MG/ML VIAL IV STA (03:36)
[2016-12-20] MEDS ORDERED: ONDANSETRON INJ 2 MG/ML 2 ML VIAL IV STA (03:36)
[2016-12-20] MEDS ORDERED: SODIUM CHLORIDE 0.9% 1000ML 1,000 ML IV STA (03:36)
--- NOTE | 2016-12-20 03:44 | EMERGENCY ROOM VISIT NOTE ---
History Report prepared by Phyllis: Aubrey Jay Under the Supervision of: Dr. Morgan Huang M.D. First contact with patient: 03:32 Chief Complaint: FLANK PAIN Stated Complaint: SEVERE SIDE PAIN History of Present Illness The patient is a 31 year old female who presents to the Emergency Room with complaints of sharp right sided flank pain that occurred tonight. She rates her pain a 10/10 in severity. The patient's pain has been intermittently present for the past few months. She notes today's pain is similar, but it is worse tonight. Her pain is radiating into her RLQ of her abdomen. The patient thinks that she may have had a kidney stone before, but is unsure. She has had 8 CT scans over the past 3 years and over 10 ultrasounds of her pelvis. They have never found a cause for her pain. She denies any trauma to her side. She is experiencing some trouble with urinating. She does not have any medical problems. She states that she is not . Source of History: patient Onset: tonight Position: back (flank) Symptom Intensity: 10/10 Quality: sharp Timing: worsening Associated Symptoms: + abdominal pain, + urinary symptoms Note: She denies any recent trauma to the area. Review of Systems See HPI for pertinent positives & negatives. A total of 10 systems reviewed and were otherwise negative. Past Medical & Surgical Medical Problems: (1) Asthma (2) Hand pain (3) Migraine Unspecified W/O Intract Mgrn W/O Status Migrainosus Surgical Problems: (1) Ear surgery Family History Cancer FH: heart disease Gallbladder disease Hypertension Social History Smoking Status: Never Smoker Alcohol Use: none Drug Use: none Marital Status: Housing Status: lives with family, lives with significant other Occupation Status: employed Current/Historical Medications Scheduled PRN Ibuprofen (Motrin), 400 MG PO TID PRN for Pain Naproxen Sodium (Naproxen Sodium Ds), 550 MG PO BID PRN for Pain Oxycodone Ir (Roxicodone Ir), 1-2 TAB PO Q4H PRN for Pain Allergies Coded Allergies: Cefepime (Verified Allergy, Intermediate, redness to chest, hives, itching , 10/23/16) Sulfa Antibiotics (Verified Allergy, Intermediate, HIVES, 10/23/16) Yeast (Unverified Allergy, Mild, 10/23/16) Hydrocortisone (Verified Allergy, Unknown, Hives/Rash, 10/23/16) Otic Suspenion Sulfamethoxazole w/Trimethoprim (Verified Allergy, Unknown, HIVES, 10/23/16) Nitrofurantoin (Verified Adverse Reaction, Unknown, ITCHING, 10/23/16) Physical Exam Vital Signs Date Time Temp Pulse Resp B/P Pulse Ox O2 Delivery O2 Flow Rate FiO2 12/20/16 06:44 36.7 74 16 126/68 97 Room Air 12/20/16 05:22 70 16 128/74 97 Room Air 12/20/16 03:20 36.7 87 18 140/78 98 Room Air Physical Exam GENERAL: Patient is in no acute distress. HEENT: No acute trauma, normocephalic atraumatic, mucous membranes moist, no nasal congestion, no scleral icterus. NECK: No stridor, no adenopathy, no meningismus, trachea is midline. LUNGS: Clear to auscultation bilaterally, no wheeze, no rhonchi, breath sounds equal. HEART: Without murmurs gallops or rubs, regular rate and rhythm. ABDOMEN: Soft, tender in the RLQ, bowel sounds positive, no hernias, no peritonitis. BACK: Right flank discomfort with percussion and palpation. No rash. EXTREMITIES: No cyanosis or edema, full range of motion of all the joints without pain or difficulty, no signs for acute trauma. NEUROLOGIC: Oriented x 3, no acute motor or sensory deficits, no focal weakness. SKIN: No rash, no jaundice, no diaphoresis. Medical Decision & Procedures ER Provider Diagnostic Interpretation: X ray results and stated below per my interpretation and radiologist interpretation. Other radiology results and stated below per my review and radiologist interpretation: US RENAL: No evidence of renal calculi. No hydronephrosis. Ureteral jets seen bilaterally in the bladder. Radiologist: Fco Abraham MD US PELVIC/ENDOVAG: Right ovary measures 5.3 x 4.2 x 3.5 cm and contains a 3.6 x 3.0 x 3.1 cm complex cyst, new from October 01 and 2016, likely a hemorrhagic cyst. Left ovary is not enlarged. Blood flow demonstrated in bilateral ovaries. The uterus is normal in size. The endometrium is within normal limits for a premenstrual female. No free fluid in the pelvis. Radiologist: Fco Abraham MD Laboratory Results 12/20/16 03:51 Red Blood Count 4.65, Mean Corpuscular Volume 78.7, Mean Corpuscular Hemoglobin 27.7, Mean Corpuscular Hemoglobin Concent 35.2, Mean Platelet Volume 10.4, Neutrophils (%) (Auto) 62.0, Lymphocytes (%) (Auto) 26.3, Monocytes (%) (Auto) 8.0, Eosinophils (%) (Auto) 3.1, Basophils (%) (Auto) 0.3, Neutrophils # (Auto) 4.79, Lymphocytes # (Auto) 2.03, Monocytes # (Auto) 0.62, Eosinophils # (Auto) 0.24, Basophils # (Auto) 0.02 12/20/16 03:51 Test 12/20/16 00:00 12/20/16 03:51 Urine Color YELLOW Urine Appearance CLOUDY (CLEAR) Urine pH 5.0 (4.5-7.5) Urine Specific [place] 1.034 (1.000-1.030) Urine Protein NEG (NEG) Urine Glucose (UA) NEG (NEG) Urine Ketones NEG (NEG) Urine Occult Blood 1+ (NEG) Urine Nitrite NEG (NEG) Urine Bilirubin NEG (NEG) Urine Urobilinogen NEG (NEG) Urine Leukocyte Esterase SMALL (NEG) Urine WBC (Auto) 10-30 /hpf (0-5) Urine RBC (Auto) 0-4 /hpf (0-4) Urine Hyaline Casts (Auto) 0 /lpf (0-5) Urine Epithelial Cells (Auto) >30 /lpf (0-5) Urine Bacteria (Auto) 1+ (NEG) Urine Yeast (Auto) PRESENT (NONE PRSENT) Urine Test NEG (NEG) White Blood Count 7.72 K/uL (4.8-10.8) Red Blood Count 4.65 M/uL (4.2-5.4) Hemoglobin 12.9 g/dL (12.0-16.0) Hematocrit 36.6 % (37-47) Mean Corpuscular Volume 78.7 fL (80-100) Mean Corpuscular Hemoglobin 27.7 pg (25-34) Mean Corpuscular Hemoglobin Concent 35.2 g/dl (32-36) Platelet Count 171 K/uL (130-400) Mean Platelet Volume 10.4 fL (7.4-10.4) Neutrophils (%) (Auto) 62.0 % Lymphocytes (%) (Auto) 26.3 % Monocytes (%) (Auto) 8.0 % Eosinophils (%) (Auto) 3.1 % Basophils (%) (Auto) 0.3 % Neutrophils # (Auto) 4.79 K/uL (1.4-6.5) Lymphocytes # (Auto) 2.03 K/uL (1.2-3.4) Monocytes # (Auto) 0.62 K/uL (0.11-0.59) Eosinophils # (Auto) 0.24 K/uL (0-0.5) Basophils # (Auto) 0.02 K/uL (0-0.2) RDW Standard Deviation 37.0 fL (36.4-46.3) RDW Coefficient of Variation 12.9 % (11.5-14.5) Immature Granulocyte % (Auto) 0.3 % Immature Granulocyte # (Auto) 0.02 K/uL (0.00-0.02) Anion Gap 6.0 mmol/L (3-11) Est Creatinine Clear Calc Drug Dose 153.0 ml/min Estimated GFR () 138.8 Estimated GFR (Non- 119.7 BUN/Creatinine Ratio 14.0 (10-20) Calcium Level 8.7 mg/dl (8.5-10.1) Total Bilirubin 0.4 mg/dl (0.2-1) Aspartate Amino Transf (AST/SGOT) 18 U/L (15-37) Alanine Aminotransferase (ALT/SGPT) 26 U/L (12-78) Alkaline Phosphatase 69 U/L (45-117) Total Protein 7.2 gm/dl (6.4-8.2) Albumin 4.2 gm/dl (3.4-5.0) Globulin 3.0 gm/dl (2.5-4.0) Albumin/Globulin Ratio 1.4 (0.9-2) Lipase 210 U/L (73-393) Laboratory results reviewed by me. Medications Administered Medications (Trade) Dose Ordered Sig/Jared Route Start Time Stop Time Status Last Admin Dose Admin Sodium Chloride (Nss 1000ml) 500 ml @ 999 mls/hr Q31M STAT IV 12/20/16 03:36 12/20/16 04:06 DC 12/20/16 04:03 999 MLS/HR Ondansetron HCl 4 mg 4 mg NOW STAT IV 12/20/16 03:36 12/20/16 03:39 DC 12/20/16 04:03 4 MG Sodium Chloride (Nss 1000ml) 1,000 ml @ 200 mls/hr Q5H STAT IV 12/20/16 03:36 12/20/16 06:52 DC 12/20/16 04:02 200 MLS/HR Morphine Sulfate (MoRPHine SULFATE INJ) 4 mg Q15M PRN IV 12/20/16 03:45 12/20/16 06:52 DC 12/20/16 05:22 4 MG Ketorolac Tromethamine (Toradol Inj) 30 mg NOW STAT IV 12/20/16 03:36 12/20/16 03:39 DC 12/20/16 04:03 30 MG Oxycodone HCl (Roxicodone Immediate Rel 5MG Home Pack) 1 homepack UD ONCE PO 12/20/16 06:30 12/20/16 06:31 DC 12/20/16 06:39 1 HOMEPACK ED Course 0332: The patient was evaluated in room B5. A complete history and physical exam was performed. 0336: Ordered Toradol Inj IV, Sodium Chloride 1000 ml @ 200 mls/hr IV, Zofran Inj 4 mg IV, Sodium Chloride 500 ml @ 999 mls/hr IV 0345: Ordered Morphine Sulfate 4 mg IV 0630: Ordered Oxycodone HCl 1 homepack PO 0636: Reevaluated the patient. Discussed results and discharge instructions: She verbalized understanding and agreement. The patient is ready for discharge. Medical Decision Differential diagnosis includes but is not limited to renal colic, ovarian cyst , ovarian torsion, appendicitis, UTI, , electrolyte imbalance, musculoskeletal pain, and shingles. There is no leukocytosis or concerning anemia. No significant electrolyte abnormality, kidney failure, hepatitis or pancreatitis. Urinalysis shows contamination, no obvious infection. testing is negative. Renal ultrasound shows no evidence for hydronephrosis. Pelvic ultrasound shows a hemorrhagic right ovarian cyst, no evidence for ovarian torsion. The patient received IV saline, IV morphine, IV Toradol and IV Zofran. She is more comfortable. The patient likely is having increased pain because of the hemorrhagic right ovarian cyst. She has chronic right sided flank and abdominal pain. She has had multiple images of the abdomen and pelvis via CT and ultrasound over the years. The patient is being discharged with Motrin, an OB follow-up, oxycodone for severe pain. If things are worsening, if she has fever, she can return for reassessment. [place] Drug Monitoring Program Search Results: patient reviewed within database Drug Monitoring Findings: She last received Oxycodone, 20 tabs, on the 23 of October. Impression Primary Impression: Right flank pain Additional Impressions: Ovarian cyst Right sided abdominal pain Scribe Attestation The scribe's documentation has been prepared under my direction and personally reviewed by me in its entirety. I confirm that the note above accurately reflects all work, treatment, procedures, and medical decision making performed by me. Departure Information Dispostion Home / Self-Care Prescriptions Oxycodone Ir (Roxicodone Ir) 5 Mg Tab 1-2 TAB PO Q4H Y for Pain, #8 TAB Prov: Morgan Huang M.D. 12/20/16 Referrals Oskar Weber M.D. (PCP) Forms HOME CARE DOCUMENTATION FORM, IMPORTANT VISIT INFORMATION Patient Instructions My [facility] Additional Instructions heat to the area may help tylenol for pain motrin every 6 hours for pain or use naproxen (aleve) use oxy ir 1 tab every 4 hours for severe pain return for fever or worsening symptoms follow [facility] ob to have the cyst rechecked--call for an appt wednesday Problem Qualifiers
[2016-12-20 04:05] LABS: BASO % 0.3 %; BASO ABS # 0.02 K/uL (0-0.2); COMPLETE YES; EOS % 3.1 %; HEMATOCRIT 36.6 % (37-47); IG% 0.3 %; LYMPH % 26.3 %; LYMPH ABS # 2.03 K/uL (1.2-3.4); MEAN CELL VOLUME 78.7 fL (80-100); MEAN CORPUSCULAR HEMOGLOBIN 27.7 pg (25-34); MEAN CORPUSCULAR HGB CONC 35.2 g/dl (32-36); MEAN PLATELET VOLUME 10.4 fL (7.4-10.4); PLATELET COUNT 171 K/uL (130-400); RED BLOOD COUNT 4.65 M/uL (4.2-5.4); WHITE BLOOD COUNT 7.72 K/uL (4.8-10.8)
[2016-12-20] MEDS: MoRPHine SULFATE 4 MG/ML 1 ML CARP\\VIAL IV PRN ×2 (04:05→05:22)
[2016-12-20 04:19] LABS: URINE APPEARANCE CLOUDY (CLEAR); URINE BILIRUBIN NEG (NEG); URINE COLOR YELLOW; URINE EPITHELIAL CELL AUTO >30 /lpf (0-5); URINE NITRITE NEG (NEG); URINE SPECIFIC GRAVITY 1.034 (1.000-1.030); UROBILINOGEN NEG (NEG); ZZUR CULT IF INDIC CLEAN CATCH YES
[2016-12-20 04:20] LABS: MANUAL MICROSCOPIC REQUIRED? NO; REVIEW REQ? YES
[2016-12-20 04:24] LABS: CALCIUM 8.7 mg/dl (8.5-10.1); CREATININE 0.64 mg/dl (0.60-1.20); POTASSIUM 3.7 mmol/L (3.5-5.1)
[2016-12-20 04:27] LABS: ALB/GLOB RATIO 1.4 (0.9-2)
[2016-12-20] MEDS ORDERED: OXYC1TAB3 PO (06:27)
[2016-12-20] MEDS ORDERED: OXYCODONE IR HOME PACK PO ONE (06:30)
[2016-12-20 06:44] VITALS: BP 126/68; PULSE 74; TEMP 36.7; O2SAT 97
--- NOTE | 2016-12-20 08:26 | DIAGNOSTIC IMAGING REPORT ---
EXAMINATION: RENAL ULTRASOUND CLINICAL HISTORY: Flank pain COMPARISON STUDY: CT scan dated 10/09/2016 FINDINGS: The right kidney measures 10.6 cm. The left kidney measures 10.7 cm. There is minimal prominence of the right renal collecting system without evidence of overt hydronephrosis. There are no renal masses. No bladder abnormalities are visualized. Bilateral ureteral jets were visualized. IMPRESSION : 1. No renal masses identified 2. Mild prominence the right renal collecting system without evidence of overt hydronephrosis Electronically signed by: Arturo Reyes M.D. 12/20/2016 8:24 AM Dictated Date/Time: 12/20/2016 8:23 AM
--- NOTE | 2016-12-20 08:28 | DIAGNOSTIC IMAGING REPORT ---
EXAMINATION: PELVIC ULTRASOUND (transabdominal and endovaginal scanning) CLINICAL HISTORY: Right-sided pelvic pain COMPARISON STUDY: 10/01/2016 FINDINGS: The uterus measured 7.9 x 3.9 x 5.4 cm.. The endometrial stripe measured 10 mm. The right ovary measured 42 x 35 x 53 mm. There is a complex 36 mm right ovarian cyst, likely hemorrhagic. A follow-up study in 6 weeks' time is recommended.. The left ovary measured 28 x 18 x 21 mm.. There is no ultrasonographic evidence of ovarian torsion. It should be noted that ovarian torsion can be present with normal Doppler ultrasonographic findings. There was no evidence of pathologic free pelvic fluid. IMPRESSION: Interval development of a complex 36 mm right ovarian cyst, likely representing a hemorrhagic cyst. Normal uterus and endometrium. Electronically signed by: Arturo Reyes M.D. 12/20/2016 8:27 AM Dictated Date/Time: 12/20/2016 8:25 AM
[2017-05-03] MEDS ORDERED: IBUP-1459 PO (05:21)
[2017-05-25] MEDS ORDERED: ACET-1256 PO (00:49)
== END 2016-12-20 06:46 | disposition home or self-care (01) ==
LOC: C.EDB 03:16
DX: R10.31 Right lower quadrant pain (principal); N83.209 Unspecified ovarian cyst, unspecified side; J45.909 Unspecified asthma, uncomplicated; Z82.49 Family history of ischemic heart disease and other diseases of the circulatory system

== ENCOUNTER 2017-01-18 21:44 | Emergency (ER) | payer OTHER ==
[~2017-01-18] VITALS: Ht 170.2 cm; Wt 97.4 kg
[~2017-01-18 21:44] MED LIST changes: -ACET-1256 PO; -ACETTAB43 PO; +OXYC1TAB3 PO
[2017-01-18 21:54] VITALS: TEMP 36.6; Ht 170.2 cm; Wt 97.4 kg
[2017-01-18] MEDS ORDERED: NORCO 5/325MG HOME PACK PO ONE (23:45)
--- NOTE | 2017-01-18 23:54 | EMERGENCY ROOM VISIT NOTE ---
History First contact with patient: 23:16 Chief Complaint: EAR PAIN Stated Complaint: SEVERE LEFT EAR PAIN SO BAD GET REALLY BAD HEADACH History of Present Illness The patient is a 31 year old female who presents to the Emergency Room with complaints of severe left ear pain on and off for the past 1-2 months. The patient states that her pain became worse tonight and she rates the discomfort a 9/10. She has had issues with her ears in the past and has seen Dr. Maldonado and had tubes placed in the ears previously. She states that she has been having headaches due to the ear pain. She has not seen her primary care provider for this. She denies any fevers, sore throat, neck pain, or cough. Review of Systems A complete 6 point review of systems was reviewed with the patient with pertinent positives and negatives as per history of present illness. All else were negative. Past Medical/Surgical History Medical Problems: (1) Asthma (2) Hand pain (3) Migraine Unspecified W/O Intract Mgrn W/O Status Migrainosus Surgical Problems: (1) Ear surgery Family History Cancer FH: heart disease Gallbladder disease Hypertension Social History Smoking Status: Never Smoker Alcohol Use: none Drug Use: none Marital Status: Housing Status: lives with family, lives with significant other Occupation Status: employed Current/Historical Medications Scheduled PRN Acetaminophen (Tylenol), 1,000 MG PO DIRECTED PRN for Pain Ibuprofen (Motrin), 400 MG PO TID PRN for Pain Naproxen Sodium (Naproxen Sodium Ds), 550 MG PO BID PRN for Pain Allergies Coded Allergies: Cefepime (Verified Allergy, Intermediate, redness to chest, hives, itching , 01/19/17) Sulfa Antibiotics (Verified Allergy, Intermediate, HIVES, 01/19/17) Yeast (Verified Allergy, Mild, 01/19/17) Hydrocortisone (Verified Allergy, Unknown, Hives/Rash, 01/19/17) Otic Suspenion Sulfamethoxazole w/Trimethoprim (Verified Allergy, Unknown, HIVES, 01/19/17) Nitrofurantoin (Verified Adverse Reaction, Unknown, ITCHING, 01/19/17) Physical Exam Vital Signs Date Time Temp Pulse Resp B/P Pulse Ox O2 Delivery O2 Flow Rate FiO2 01/19/17 00:55 70 20 107/78 100 Room Air 01/18/17 21:54 36.6 71 18 132/81 98 Room Air Physical Exam VITALS: Vitals are noted on the nurse's note and reviewed by myself. Vital signs stable. GENERAL: This is a 31-year-old female, in no acute distress, nondiaphoretic, well-developed well-nourished. SKIN: Capillary reflex less than 2 seconds. EARS: External auditory canals clear, tympanic membranes pearly mcgovern without erythema or effusion bilaterally. EYES: Pupils equal round and reactive to light and accommodation. Extraocular movements intact. NOSE: Patent, turbinates without inflammation or discharge. MOUTH: Mucous membranes moist. Tonsils are not enlarged. Pharynx without erythema or exudate. NECK: Supple without nuchal rigidity. No lymphadenopathy. HEART: Regular rate and rhythm without murmurs gallops or rubs. LUNGS: Clear to auscultation bilaterally without wheezes, rales or rhonchi. NEURO: Patient was alert and oriented to person place and time. Medical Decision & Procedures Medications Administered Medications (Trade) Dose Ordered Sig/Jared Route Start Time Stop Time Status Last Admin Dose Admin Acetaminophen/ Hydrocodone Bitart (Hamilton 5/325mg Home Pack) 1 homepack UD ONCE PO 01/18/17 23:45 01/18/17 23:47 DC 01/19/17 00:54 1 HOMEPACK Medical Decision The patient was evaluated as above. She does not appear to have an acute otitis. The patient does have chronic issues with her ears. She was given a home pack of [place] for pain but was educated that she will need to return to her primary care provider or ENT provider tomorrow for further evaluation of this pain. The patient verbalized understanding of my assessment and treatment plan and was discharged home in good condition. The patient was independently evaluated by Dr. Peters, ED attending physician , who agreed with my assessment and treatment plan. Impression Primary Impression: Left ear pain Departure Information Dispostion Home / Self-Care Condition GOOD Referrals Oskar Weber M.D. (PCP) Homer Maldonado D.O. Patient Instructions My [facility] Additional Instructions Follow-up with Dr. Maldonado or your PCP tomorrow. You have been prescribed Hamilton to be used for pain control. Take 1-2 tablets every 4-6 hours as needed for pain. This is a narcotic medication. You cannot drive or consume alcohol while on this medicine. This medicine should only be used for pain that cannot be controlled with cpsz-[id number]-[id number] pain medicines. For pain control, you can use the following rpzt-kin-gqxaodf medicines (if >12 yo): - Regular strength (325mg/tab) Tylenol (acetaminophen) 2 tabs every 4-6 hours as needed. Do not exceed 12 tablets in a 24 hour period. Avoid taking more than 4 grams (4000 mg) of Tylenol per day. This includes any other sources of acetaminophen you may take on a regular basis. - Regular strength (200 mg/tab) Advil (ibuprofen) 1-2 tabs every 4-6 hours as needed. Do not exceed a dose of 3200 mg per day.
[2017-01-19 00:55] VITALS: BP 107/78; PULSE 70; O2SAT 100
--- NOTE | 2017-01-19 04:19 | EMERGENCY ROOM VISIT NOTE ---
ED Visit Note First contact with patient: 23:16 I have personally evaluated and examined this patient. I agree with assessment and plan of Sully Armas PA-C.
[2017-05-03] MEDS ORDERED: IBUP-1459 PO (05:21)
[2017-05-25] MEDS ORDERED: ACET-1256 PO (00:49)
== END 2017-01-19 00:59 | disposition home or self-care (01) ==
LOC: C.EDB 21:45 → C.EDD 01-19 00:59
DX: H92.02 Otalgia, left ear (principal); R51 Headache; J45.909 Unspecified asthma, uncomplicated; Z82.49 Family history of ischemic heart disease and other diseases of the circulatory system; Z83.79 Family history of other diseases of the digestive system

== ENCOUNTER 2017-02-17 15:45 | Emergency (ER) | payer OTHER ==
[~2017-02-17] VITALS: Ht 167.6 cm; Wt 96.6 kg
[~2017-02-17 15:45] MED LIST changes: -OXYC1TAB3 PO
[2017-02-17 15:51] VITALS: TEMP 36.8; Ht 167.6 cm; Wt 96.6 kg
[2017-02-17] MEDS ORDERED: ACETAMINOPHEN 325 MG TAB ONE (16:02)
[2017-02-17] MEDS ORDERED: IBUPROFEN 600 MG TAB ONE (16:22)
[2017-02-17 16:48] VITALS: BP 121/80; PULSE 71; O2SAT 98
--- NOTE | 2017-02-17 20:57 | EMERGENCY ROOM VISIT NOTE ---
ED Visit Note First contact with patient: 15:51 Chief Complaint: I cut my right hand at work. History of Present Illness: Ms. Medrano is a 32-year-old white female who ambulates into the ED accompanied by her complaining of a laceration to the palm of the right hand. Patient reports approximately one hour ago she was at work and accidentally cut her hand on a glass that fell. She reports prior to arrival at the hospital she did control bleeding but did not wash the wound. Associated with her laceration she reports she is having a burning pain in the area the laceration. She rates her discomfort 9/10. The pain is nonradiating. The pain worsens with palpation. She has not identified any alleviating factors related to the pain. She has not taken any medications for pain prior to arrival at the hospital. She denies any associated symptoms including hand/ finger weakness/numbness/tingling. Review of Systems: As noted above in history of present illness. Past Medical History: (1) Asthma (2) Hand pain (3) Migraine Unspecified W/O Intract Mgrn W/O Status Migrainosus Surgical Problems: (1) Ear surgery Current Medications: Medications Dose Route/Sig Max Daily Dose Days Date Category Tylenol (Acetaminophen) 500 Mg Tab 1,000 Mg PO Q6H PRN 01/19/17 Reported Motrin (Ibuprofen) 400 Mg Tab 400 Mg PO TID PRN 12/20/16 Reported Allergies to Medications: Hydrocortisone, butrifyrabtoin, Bactrim, cefepime. Social History: Patient is currently employed; she feels safe in her home environment; she denies tobacco and alcohol use. Tetanus Immunization Status: Patient reports up-to-date. Physical Examination: Vital Signs: Date Time Temp Pulse Resp B/P Pulse Ox O2 Delivery O2 Flow Rate FiO2 02/17/17 16:48 71 18 121/80 98 02/17/17 15:51 36.8 83 18 149/92 98 Room Air GENERAL: 32-year-old female in mild to moderate distress due to pain, nontoxic- appearing, afebrile and hemodynamically stable. NEUROLOGICAL: Awake, alert and oriented to person, place and time. Answering questions appropriately and following commands. SKIN: Warm, dry and pink. Right Hand: Over the palmar surface of the hand in the medial border of the thenar eminence patient has a 3.2 cm superficial laceration. No active bleeding. RIGHT HAND: Soft tissue injury as noted above under SKIN. No gross bony deformity. Moderate tenderness over her laceration but no tenderness throughout the rest of the hand or fingers. Full range of motion in flexion and extension of all MCP, PIP and DIP joints. Throughout the hand and fingers the skin was warm and pink and capillary refill is brisk. She was able to distinguish light sensations through all dermatomes. ED Course: Patient is assessed as noted above. Patient was initially given 650 mg of acetaminophen by mouth for pain. She requested additional pain medication and was offered and accepted 600 mg of ibuprofen by mouth for pain. Wound Repair: Complexity: Basic Verbal consent was obtained after the risks and benefits were explained. The skin was prepped with betadine and a sterile field set. The wound was explored for foreign bodies and none found. Copious irrigation was performed using sterile saline. With direct pressure the bleeding subsided. Debridement was not performed. The wound edges were approximated using Steri-Strips. Hemostasis and excellent approximation was achieved. Sterile dressing applied. No complications and the patient tolerated the procedure well. Patient was educated about tonight's findings and instructed on her treatment plan; she verbalizes understanding and agreement with this plan. Clinical Impression: Laceration of the right hand. Disposition: Patient discharged home in stable condition; prior to departure he was reassessed and subjectively reported she pain free. Plan: Comfort measures, wound care, signs of infection were discussed with the patient. Patient was encouraged to follow-up with Workmen's Compensation or return to the ED for signs of infection. Additionally patient was signed off of work for 3 days and encouraged to follow- up with Workmen's Compensation for return to work instructions.
[2017-05-03] MEDS ORDERED: IBUP-1459 PO (05:21)
[2017-05-25] MEDS ORDERED: ACET-1256 PO (00:49)
== END 2017-02-17 16:49 | disposition home or self-care (01) ==
LOC: C.EDB 15:46 → C.EDD 16:49
DX: S61.411A Laceration without foreign body of right hand, initial encounter (principal); W25.XXXA Contact with sharp glass, initial encounter; Y92.89 Other specified places as the place of occurrence of the external cause; Y99.0 Civilian activity done for income or pay; J45.909 Unspecified asthma, uncomplicated; G43.909 Migraine, unspecified, not intractable, without status migrainosus

== ENCOUNTER 2017-04-01 23:39 | Emergency (ER) | payer OTHER ==
[~2017-04-01] VITALS: Ht 171.5 cm; Wt 96.8 kg
[~2017-04-01 23:39] MED LIST changes: +ACET-1256 PO; +IBUP-1459 PO; -NAPR-1161 PO
[2017-04-01 23:49] VITALS: TEMP 36.6; Ht 171.5 cm; Wt 96.8 kg
[2017-04-02] MEDS ORDERED: AMOX875T PO (00:21)
--- NOTE | 2017-04-02 00:29 | EMERGENCY ROOM VISIT NOTE ---
History First contact with patient: 00:12 Chief Complaint: EAR PAIN Stated Complaint: SEVERE LEFT EAR PAIN History of Present Illness The patient is a 32 year old female who presents to the Emergency Room with complaints of left ear pain for the past one day. The patient has a history of chronic left ear pain and follows with [facility]. The patient does not report fever or chills. She has tried Advil and Tylenol at home without relief of symptoms. She does not have sore throat, chest pain, chest tightness, or shortness of breath. Review of Systems More than 10 systems were reviewed and otherwise negative with the exception of history of present illness. Past Medical/Surgical History Medical Problems: (1) Asthma (2) Hand pain (3) Migraine Unspecified W/O Intract Mgrn W/O Status Migrainosus Surgical Problems: (1) Ear surgery Family History Cancer FH: heart disease Gallbladder disease Hypertension Social History Smoking Status: Never Smoker Alcohol Use: none Drug Use: none Marital Status: Housing Status: lives with family, lives with significant other Occupation Status: employed Current/Historical Medications Scheduled Amoxicillin & Pot Clavulanate (Augmentin 875-125 mg), 1 TAB PO BID Scheduled PRN Acetaminophen (Tylenol), 1,000 MG PO Q6H PRN for Pain Ibuprofen (Motrin), 400 MG PO TID PRN for Pain Allergies Coded Allergies: Cefepime (Verified Allergy, Intermediate, redness to chest, hives, itching , 04/01/17) Sulfa Antibiotics (Verified Allergy, Intermediate, HIVES, 04/01/17) Yeast (Verified Allergy, Mild, 04/01/17) Hydrocortisone (Verified Allergy, Unknown, Hives/Rash, 04/01/17) Otic Suspenion Sulfamethoxazole w/Trimethoprim (Verified Allergy, Unknown, HIVES, 04/01/17 ) Nitrofurantoin (Verified Adverse Reaction, Unknown, ITCHING, 04/01/17) Physical Exam Vital Signs Date Time Temp Pulse Resp B/P (MAP) Pulse Ox O2 Delivery O2 Flow Rate FiO2 04/01/17 23:49 36.6 81 20 133/89 100 Room Air Physical Exam VITALS: Vitals are noted on the nurse's note and reviewed by myself. Vital signs stable. GENERAL: Well-developed, well-nourished, white female, who is in no acute distress and resting comfortably. Patient is cooperative with the examination. HEAD: Normocephalic atraumatic. EARS: External ear normal. External auditory canals clear, tympanic membranes pearly mcgovern without erythema or effusion bilaterally. No mastoid tenderness. EYES: Pupils equal round and reactive to light and accommodation. Conjunctivae without injection, sclerae without icterus. Extraocular movements intact. NOSE: Patent, turbinates without inflammation or discharge. MOUTH: Mucous membranes moist. Tonsils are not enlarged. Pharynx without erythema, blood, or exudate. Uvula midline. Airway patent. NECK: Supple without nuchal rigidity. No lymphadenopathy. No thyromegaly. Cervical spine is nontender. HEART: Regular rate and rhythm without murmurs gallops or rubs. LUNGS: Clear to auscultation bilaterally without wheezes, rales or rhonchi. No retractions or accessory muscle use. Medical Decision & Procedures ED Course Physical exam and history were performed. Nursing notes, EMR, and Medication List were personally reviewed. Patient appears to have left ear pain for the past one day. On examination the patient appears well without significant acute findings. Evidently she has a history of chronic ear pain, and chronic otitis media. The patient will be started on Augmentin as her history appears somewhat complicated. She is to contact her ENT in the morning for further care. She was otherwise invited back to the ER with any new, worsening, or concerning symptoms. The chart was completed utilizing [employer] Speech Voice Recognition Software. Grammatical errors, random word insertions, pronoun errors, and incomplete sentences are an occasional consequence of this system due to software limitations, ambient noise, and hardware issues. Any formal questions or concerns about the content, text, or information contained within the body of this dictation should be directly addressed to the provider for clarification. . Medical Decision Differential diagnosis: Etiologies such as viral syndrome, otitis, pharyngitis, pneumonia, influenza, meningitis, urinary tract infection, sepsis, bacteremia, as well as others were entertained. Impression Primary Impression: Otalgia of left ear Departure Information Dispostion Home / Self-Care Condition GOOD Prescriptions Amoxicillin & Pot Clavulanate (Augmentin 875-125 mg) 1 Tab Tab 1 TAB PO BID for 9 Days, #18 TAB Prov: Doroteo Trimble PA-C 04/02/17 Referrals Oskar Weber M.D. (PCP) Forms HOME CARE DOCUMENTATION FORM, IMPORTANT VISIT INFORMATION Patient Instructions My [facility] Additional Instructions You were seen and evaluated today on an emergency basis only. This is not a substitute for, or an effort to provide, complete comprehensive medical care. It is not possible to recognize and treat all injuries or illnesses in a single emergency department visit. For this reason it is recommended that you followup with your clinical research manager for ongoing care and evaluation. For baseline pain relief you may alternate ibuprofen and acetaminophen every 4 hours for pain control. Take 600 mg ibuprofen (Advil) and then 4 hours later take 1000 mg acetaminophen (Tylenol). Do not take more than 3000 mg acetaminophen in a single day. Amoxicillin Clavulanate (Augmentin) 875mg: Take one pill twice daily for 10 total days. All antibiotics can cause diarrhea. If this occurs and you feel worse or it does not resolve in 1-2 days follow up with your doctor or return to the Emergency Department as this could be signs of serious underlying problems. Any medication can cause an allergic reaction, stop the pills immediately and return to the ER for rash, hives, breathing difficulties, or swelling. You are welcome to return to the emergency department anytime with new, worsening, or concerning symptoms.
[2017-04-02] MEDS ORDERED: AMOXICIL/CLAVU 875MG HOME PACK PO ONE (00:30)
[2017-04-02 00:31] VITALS: BP 94/81; PULSE 75; O2SAT 100
== END 2017-04-02 00:32 | disposition home or self-care (01) ==
LOC: C.EDB 23:41 → C.EDC 04-02 00:32
DX: H92.02 Otalgia, left ear (principal); J45.909 Unspecified asthma, uncomplicated; Z82.49 Family history of ischemic heart disease and other diseases of the circulatory system

== ENCOUNTER 2017-05-03 17:19 | Emergency (ER) | payer OTHER ==
[~2017-05-03] VITALS: Ht 170.2 cm; Wt 98.3 kg
[~2017-05-03 17:19] MED LIST changes: -ACET-1256 PO
[2017-05-03 17:22] VITALS: BP 119/78; TEMP 36.6; Ht 170.2 cm; Wt 98.3 kg
[2017-05-03] MEDS ORDERED: HYDROCODONE/ACETAMOPHEN 5/325MG TAB PO STA (17:33)
[2017-05-03] MEDS ORDERED: OFLOXACIN 0.3% OP SOLN 5 ML BTL OTL STA (17:37)
--- NOTE | 2017-05-03 17:47 | EMERGENCY ROOM VISIT NOTE ---
ED Visit Note First contact with patient: 17:26 CHIEF COMPLAINT: Left ear pain HISTORY OF PRESENT ILLNESS: This 32-year-old female who has a long standing history of ear problems presents to the ER with chief complaint of severe left ear pain which started this morning. The patient states that she has had decreased hearing in the ear since last week but today it got worse. She also started with the pain today. The patient denies any other URI symptoms. REVIEW OF SYSTEMS: 6 system review was performed and was negative unless stated otherwise in history of present illness. PMH: The patient is healthy; bilateral ear tubes, left knee surgery SOCIAL HISTORY: Patient lives with her significant other PHYSICAL EXAM: Vital Signs: Were reviewed Reviewed Nurse's notes. GENERAL: 32- year-old white female appears in no acute distress. MENTAL Status: Alert and oriented 3. EARS: Right tragus and auricle is nontender. Canal clear without erythema or edema. TMs with good light reflex. Left canal with some cerumen. I think a portion of the prior ear tube is embedded in the cerumen. Canal is slightly inflamed but minimal erythema. Partial TM with good light reflex. EMERGENCY COURSE: The patient was evaluated. The patient's pain was reviewed in the prescription drug monitoring program. Her last narcotic prescription was in December. I attempted to remove the cerumen and ear tube from the left canal but it was too painful for the patient. The patient was given Denver 5/ 325 mg 2 tablets by mouth for pain. 10 Ofloxacin drops are placed into the left ear. The patient was given the remainder of the old take with her. DIAGNOSIS: Acute left otitis externa DISCHARGE INSTRUCTIONS & TREATMENT: Ofloxacin drops, 10 drops to the left ear once daily for 6 additional days. Ibuprofen as needed for pain. Take Denver as needed for more severe pain. Do not drive while taking the Denver. Recommend follow-up with your ENT in 1 week for reevaluation. Problem List Medical Problems: (1) Asthma Status: Chronic (2) Hand pain Status: Resolved (3) Migraine Unspecified W/O Intract Mgrn W/O Status Migrainosus Status: Chronic Surgical Problems: (1) Ear surgery Status: Resolved Current/Historical Medications Scheduled PRN Acetaminophen (Tylenol), 1,000 MG PO Q6H PRN for Pain Ibuprofen (Motrin), 400 MG PO TID PRN for Pain Allergies Coded Allergies: Cefepime (Verified Allergy, Intermediate, redness to chest, hives, itching , 04/01/17) Sulfa Antibiotics (Verified Allergy, Intermediate, HIVES, 04/01/17) Yeast (Verified Allergy, Mild, 04/01/17) Hydrocortisone (Verified Allergy, Unknown, Hives/Rash, 04/01/17) Otic Suspenion Sulfamethoxazole w/Trimethoprim (Verified Allergy, Unknown, HIVES, 04/01/17 ) Nitrofurantoin (Verified Adverse Reaction, Unknown, ITCHING, 04/01/17) Vital Signs Date Time Temp Pulse Resp B/P (MAP) Pulse Ox O2 Delivery O2 Flow Rate FiO2 05/03/17 17:22 36.6 95 18 119/78 97 Room Air Departure Information Referrals Oskar Weber M.D. (PCP) Patient Instructions My [facility]
[2017-05-03] MEDS ORDERED: HYDR-5688 PO (17:49)
[2017-05-03 18:01] VITALS: PULSE 90; O2SAT 96
[2017-05-25] MEDS ORDERED: ACET-1256 PO (00:49)
== END 2017-05-03 18:03 | disposition home or self-care (01) ==
LOC: C.EDB 17:21 → C.EDD 18:03
DX: H60.92 Unspecified otitis externa, left ear (principal); J45.909 Unspecified asthma, uncomplicated; Z98.890 Other specified postprocedural states; Z88.2 Allergy status to sulfonamides; Z88.8 Allergy status to other drugs, medicaments and biological substances

== ENCOUNTER 2017-05-25 16:54 | Emergency (ER) | payer OTHER ==
[~2017-05-25] VITALS: Ht 170.2 cm; Wt 97.7 kg
[~2017-05-25 16:54] MED LIST changes: +ACET-1256 PO; +HYDR-5688 PO
[2017-05-25 17:29] VITALS: BP 130/82; PULSE 80; TEMP 36.8; O2SAT 97; Ht 170.2 cm; Wt 97.7 kg
--- NOTE | 2017-05-25 17:54 | DIAGNOSTIC IMAGING REPORT ---
RIGHT ANKLE MIN 3 VIEWS ROUTINE HISTORY: 32 years-old Female rule out fx Right acute right ankle pain without reported trauma. Pain is most pronounced posteriorly. COMPARISON: None available. TECHNIQUE: 3 views of the right ankle. FINDINGS: 6 mm area of round sclerosis involving the central subcortical distal talus suggests focal enostosis (bone island). No acute fracture, dislocation, significant degenerative changes or osteochondral defect identified. There is minimal enthesopathy about the calcaneus with mild spurring of the talonavicular joint. There is mild circumferential soft tissue swelling about the ankle. IMPRESSION: 1. Mild soft tissue swelling without acute fracture or dislocation. 2. Minimal enthesopathy about the calcaneus. The above report was generated using voice recognition software. It may contain grammatical, syntax or spelling errors. Electronically signed by: Mike Foster M.D. 05/25/2017 5:53 PM Dictated Date/Time: 05/25/2017 5:50 PM
[2017-05-25] MEDS ORDERED: MTR/600 PO (18:12)
--- NOTE | 2017-05-25 18:23 | DIAGNOSTIC IMAGING REPORT ---
RIGHT FOOT MIN 3 VIEWS ROUTINE HISTORY: 32 years-old Female R foot pain Right acute right foot pain without reported trauma. COMPARISON: Right ankle radiographs of same day TECHNIQUE: 3 views of the right foot FINDINGS: Focal areas of sclerosis involving the first proximal phalanx and base of the fourth metatarsal measuring up to 9 mm suggest areas of enostosis (bone islands). There is no acute fracture, dislocation or significant degenerative changes. No stress fracture. Minimal spurring is noted involving the dorsal talonavicular joint. There is minimal enthesopathy about the calcaneus. IMPRESSION: 1. No acute fracture or dislocation. 2. Minimal enthesopathy about the calcaneus. 3. Focal areas of enostosis are noted involving the base of the fourth metatarsal and distal aspect of the first proximal phalanx. The above report was generated using voice recognition software. It may contain grammatical, syntax or spelling errors. Electronically signed by: Mike Foster M.D. 05/25/2017 6:21 PM Dictated Date/Time: 05/25/2017 6:18 PM
--- NOTE | 2017-05-25 19:28 | EMERGENCY ROOM VISIT NOTE ---
History First contact with patient: 17:41 Chief Complaint: ANKLE PAIN Stated Complaint: RIGHT ANKLE PAIN History of Present Illness The patient is a 32 year old female who presents to the Emergency Room with complaints of right ankle pain. The patient reports that she awoke this morning with this pain, and reports pain with weightbearing. She denies any recent trauma or extended activities on her feet. She denies any pain extending into the leg or knee region. She denies back pain. The patient denies any prior history of right ankle injuries, and rates her discomfort an 8 out of 10 with weightbearing. She denies paresthesias or numbness of the right lower extremity. Review of Systems 10 system review was performed and was negative except for pertinent positives and negatives as indicated in history of present illness Past Medical/Surgical History Medical Problems: (1) Asthma (2) Hand pain (3) Migraine Unspecified W/O Intract Mgrn W/O Status Migrainosus Surgical Problems: (1) Ear surgery Family History Cancer FH: heart disease Gallbladder disease Hypertension Social History Smoking Status: Never Smoker Alcohol Use: none Drug Use: none Marital Status: Housing Status: lives with family, lives with significant other Occupation Status: employed Current/Historical Medications Scheduled PRN Acetaminophen (Tylenol), 1,000 MG PO Q6H PRN for Pain Ibuprofen (Ibuprofen), 600 MG PO Q6H PRN for Pain Physical Exam Vital Signs Date Time Temp Pulse Resp B/P (MAP) Pulse Ox O2 Delivery O2 Flow Rate FiO2 05/25/17 17:29 36.8 80 20 130/82 97 Room Air Pain Rating (0-10): 0 Physical Exam CONSTITUTIONAL: Healthy and well nourished. Alert and oriented X 3 with flat affect. HEENT: Normocephalic, atraumatic. Pupils equal, round and reactive. NECK: Full active range of motion without discomfort. MUSCULOSKELETAL: Examination of the right ankle does not show any soft tissue edema, ecchymosis or deformity. She has general tenderness to palpation about the entire ankle and lateral foot region. Negative anterior draw. No worsening discomfort with subtalar motion. No focal tenderness to palpation across the dorsal midfoot, metatarsals, phalanges, calcaneus or Achilles tendon. Pedal pulses are intact. INTEGUMENTARY: No rash or other significant dermatologic conditions noted. NEUROLOGIC: Right foot and toes are sensory intact. Medical Decision & Procedures ER Provider Diagnostic Interpretation: My interpretation of right ankle and foot x-rays does not show any acute fractures or dislocations. Radiologist reports were also reviewed. ED Course Patient history and physical exam were performed. Nurse's notes were reviewed. Vital signs were reviewed and were normal. X-rays of the right ankle and foot were normal. At this point, the patient was encouraged to intermittently apply ice and elevate for pain. She may also alternate ibuprofen and Tylenol for additional pain relief. The patient reports that she does have crutches at home, and she was encouraged to use them. She was encouraged to follow-up with her family doctor as needed for any persistent pain. The patient voiced understanding of all discharge instructions, and rated her discomfort a 5 out of 10 at the time of discharge. She refused any further analgesics. Medical Decision Blood Pressure Screening Patient's blood pressure: Normal blood pressure Impression Primary Impression: Right ankle pain Departure Information Dispostion Home / Self-Care Referrals Oskar Weber M.D. (PCP) Lito MullenD.O. Forms HOME CARE DOCUMENTATION FORM, IMPORTANT VISIT INFORMATION Patient Instructions My [facility] [employer] Additional Instructions Intermittently apply ice to ankle. Use your home crutches to minimize weight on foot - NO LIMPING. Ibuprofen 800 mg and/or Tylenol 1000 mg every 8 hours. You may also alternate these medications for more effective pain relief: Ibuprofen --4 HRS--> Tylenol --4 HRS--> ibuprofen --4 HRS--> Tylenol .... Follow-up with [facility] (Dr. Mullen) if symptoms have not improved within the next week. Problem Qualifiers Primary Impression: Right ankle pain Chronicity: acute Qualified Codes: M25.571 - Pain in right ankle and joints of right foot
== END 2017-05-25 19:04 | disposition home or self-care (01) ==
LOC: C.EDB 16:55 → C.EDD 19:04
DX: M25.571 Pain in right ankle and joints of right foot (principal); J45.909 Unspecified asthma, uncomplicated; G43.909 Migraine, unspecified, not intractable, without status migrainosus; Z80.9 Family history of malignant neoplasm, unspecified; Z82.49 Family history of ischemic heart disease and other diseases of the circulatory system; Z83.79 Family history of other diseases of the digestive system

== ENCOUNTER 2017-06-09 23:36 | Emergency (ER) | payer OTHER ==
[~2017-06-09] VITALS: Ht 171.5 cm; Wt 98.5 kg
[~2017-06-09 23:36] MED LIST changes: -HYDR-5688 PO; -IBUP-1459 PO; +MTR/600 PO
[2017-06-09 23:42] VITALS: BP 137/94; PULSE 88; TEMP 36.9; O2SAT 98; Ht 171.5 cm; Wt 98.5 kg
[2017-06-09] MEDS ORDERED: CIPROFLOXACIN HCL 0.3% OP SOLN 2.5 ML BTL OP STA (23:49)
--- NOTE | 2017-06-09 23:55 | EMERGENCY ROOM VISIT NOTE ---
ED Visit Note First contact with patient: 23:46 CHIEF COMPLAINT: Red, irritated eye HISTORY OF PRESENT ILLNESS: This 32 yo presents to the emergency department complaining of redness in the right eye which has gradually increased today. Mild constant pain, irritating in nature, which is rated as 3/10. There is yellow-green discharge from the right eye and the lids are crusted in the morning. No difficulty with vision. The patient wear contacts. There is no known trauma to the eye. The patient has not had any other upper respiratory symptoms. The left eye is normal. The patient does not have a foreign body sensation. No headache, rash, nausea or vomiting. REVIEW OF SYSTEMS: A 6 system review of systems was completed with positives and pertinent negatives in the HPI. ALLERGIES: Bactrim, reviewed MEDICATIONS: Reviewed PMH:Medical Problems: (1) Asthma Status: Chronic (2) Hand pain Status: Resolved (3) Migraine Unspecified W/O Intract Mgrn W/O Status Migrainosus Status: Chronic Surgical Problems: (1) Ear surgery Status: Resolved SOCIAL HISTORY: No Drug use PHYSICAL EXAM: Vital Signs: Reviewed Nurse's notes, Temperature afebrile. GENERAL: pleasant female, in no acute distress, well-developed, well-nurished. SKIN: Warm, dry. No cyanosis. No petechia. EYES: Both pupils are equal round and reactive to light and accomadation, EOMs intact. There is yellow/green discharge in the right eye and moderate injection. There is no foreign body of the eyelid with lid eversion. Fundoscopic exam reveals no hemorrages, papiledema , or other abnormalities. No foreign body on the cornea, no hyphema. No uptake visible with UV light. No corneal abrasion and no corneal ulcer. Visual Accuity reviewed without correction. EMERGENCY DEPARTMENT COURSE: I examined the patient. A slit lamp exam was performed and is as described above. Two drops of Ciloxin were put in the right eye and the patient was instructed as noted below. The patient was discharged home in good condition. Differential diagnosis includes conjunctivitis, corneal abrasion, iritis, foreign body, allergic reaction and other etiologies were considered. DIAGNOSIS: Acute conjunctivitis DISCHARGE INSTRUCTIONS: Ciloxan 2 drops into affected eye every 2 hrs x 2 days then 4 times a day for 5 days for a total of 7 days. No contacts for 7 days. Use new contacts when infection clears. Do not rub your eyes, and wash hands frequently. Cool compress for discomfort. Avoid irritants like smoke, wind, and sun. Throw out eye cosmetics. Acetaminophen(Tylenol) may be used for fever or pain. Use 1000mg every six hours as needed. Avoid using more than 3000mg in a 24 hour period. AND/OR Ibuprofen(Motrin, Advil) may be used for fever or pain. Use 600mg every six hours as needed. Take with food. Avoid using more than 2400mg in a 24 hour period. Do not use 2400mg per day for more than three consecutive days without physician direction. Prolonged inappropriate use can lead to stomach upset or ulcers. Follow up with family doctor or eye doctor if symptoms do not resolve in 7 days. Return sooner for any change in vision, eye pain, worsening signs or symptoms or as needed. Problem List Medical Problems: (1) Asthma Status: Chronic (2) Hand pain Status: Resolved (3) Migraine Unspecified W/O Intract Mgrn W/O Status Migrainosus Status: Chronic Surgical Problems: (1) Ear surgery Status: Resolved Current/Historical Medications Scheduled PRN Acetaminophen (Tylenol), 1,000 MG PO Q6H PRN for Pain Ibuprofen (Ibuprofen), 600 MG PO Q6H PRN for Pain Allergies Coded Allergies: Cefepime (Verified Allergy, Intermediate, redness to chest, hives, itching , 06/09/17) Sulfa Antibiotics (Verified Allergy, Intermediate, HIVES, 06/09/17) Yeast (Verified Allergy, Mild, 06/09/17) Hydrocortisone (Verified Allergy, Unknown, Hives/Rash, 06/09/17) Otic Suspenion Sulfamethoxazole w/Trimethoprim (Verified Allergy, Unknown, HIVES, 06/09/17 ) Nitrofurantoin (Verified Adverse Reaction, Unknown, ITCHING, 06/09/17) Vital Signs Date Time Temp Pulse Resp B/P (MAP) Pulse Ox O2 Delivery O2 Flow Rate FiO2 06/09/17 23:42 36.9 88 20 137/94 98 Room Air Departure Information Referrals Oskar Weber M.D. (PCP) Patient Instructions [facility]
== END 2017-06-10 00:20 | disposition home or self-care (01) ==
LOC: C.EDB 23:38
DX: H10.31 Unspecified acute conjunctivitis, right eye (principal); J45.909 Unspecified asthma, uncomplicated; G43.909 Migraine, unspecified, not intractable, without status migrainosus

== ENCOUNTER 2017-06-17 23:37 | Emergency (ER) | payer OTHER ==
[~2017-06-17] VITALS: Ht 170.2 cm; Wt 97.9 kg
[2017-06-17 23:42] VITALS: TEMP 36.8; Ht 170.2 cm; Wt 97.9 kg
[2017-06-18] MEDS ORDERED: MoRPHine SULFATE 4 MG/ML 1 ML CARP\\VIAL IV STA (00:05)
[2017-06-18] MEDS ORDERED: ONDANSETRON INJ 2 MG/ML 2 ML VIAL IV STA (00:05)
[2017-06-18] MEDS ORDERED: SODIUM CHLORIDE 0.9% 1000ML 1,000 ML IV STA (00:05)
[2017-06-18 00:26] LABS: URINE APPEARANCE CLEAR (CLEAR); URINE BILIRUBIN NEG (NEG); URINE COLOR YELLOW; URINE EPITHELIAL CELL AUTO >30 /lpf (0-5); URINE NITRITE NEG (NEG); URINE SPECIFIC GRAVITY 1.028 (1.000-1.030); UROBILINOGEN NEG (NEG); ZZUR CULT IF INDIC CLEAN CATCH NO
[2017-06-18 00:27] LABS: BASO % 0.3 %; BASO ABS # 0.02 K/uL (0-0.2); COMPLETE YES; EOS % 3.2 %; HEMATOCRIT 38.1 % (37-47); IG% 0.1 %; LYMPH % 33.7 %; MANUAL MICROSCOPIC REQUIRED? NO; MEAN CORPUSCULAR HEMOGLOBIN 27.5 pg (25-34); MEAN CORPUSCULAR HGB CONC 34.4 g/dl (32-36); MEAN PLATELET VOLUME 10.6 fL (7.4-10.4); MONO % 6.6 %; NEUT % 56.1 %; PLATELET COUNT 185 K/uL (130-400); RED BLOOD COUNT 4.76 M/uL (4.2-5.4); REVIEW REQ? NO; WHITE BLOOD COUNT 7.13 K/uL (4.8-10.8)
[2017-06-18 00:51] LABS: ALT/SGPT 21 U/L (12-78); AST/SGOT 16 U/L (15-37); BLOOD UREA NITROGEN 11 mg/dl (7-18); BUN/CREATININE RATIO 15.1 (10-20); CALCIUM 8.9 mg/dl (8.5-10.1); CARBON DIOXIDE 26 mmol/L (21-32); CHLORIDE 110 mmol/L (98-107); CREATININE 0.71 mg/dl (0.60-1.20); GLUCOSE 91 mg/dl (70-99); POTASSIUM 3.7 mmol/L (3.5-5.1); SODIUM 144 mmol/L (136-145)
[2017-06-18 00:53] LABS: ALKALINE PHOSPHATASE 88 U/L (45-117)
[2017-06-18] MEDS ORDERED: KETOROLAC TROMETHAMINE 30 MG/ML VIAL IV STA (02:11)
[2017-06-18 02:26] VITALS: BP 130/68; PULSE 66; O2SAT 95
--- NOTE | 2017-06-18 07:18 | EMERGENCY ROOM VISIT NOTE ---
History Report prepared by Phyllis: Parisa Zambrano Under the Supervision of: Dr. Yane Khan M.D. First contact with patient: 23:51 Chief Complaint: ABDOMINAL PAIN Stated Complaint: SEVERE SIDE PAIN History of Present Illness The patient is a 32 year old female who presents to the Emergency Room with complaints of worsening abdominal pain starting two nights ago. She notes that the pain is in the right lower abdomen. The patient states that the pain is worse at night. She currently rates her pain as an 8/10 in severity. The patient complains of diarrhea and nausea. She denies difficulty urinating, blood in her urine, and the chance of . Source of History: patient Onset: two nights ago Position: abdomen (RLQ) Symptom Intensity: 8/10 Timing: worsening Modifying Factors (Worsening): other (at night) Associated Symptoms: + nausea, + diarrhea, No urinary symptoms Review of Systems See HPI for pertinent positives & negatives. A total of 10 systems reviewed and were otherwise negative. Past Medical & Surgical Medical Problems: (1) Asthma (2) Hand pain (3) Migraine Unspecified W/O Intract Mgrn W/O Status Migrainosus Surgical Problems: (1) Ear surgery Family History Cancer FH: heart disease Gallbladder disease Hypertension Social History Smoking Status: Never Smoker Alcohol Use: none Drug Use: none Marital Status: Housing Status: lives with family, lives with significant other Occupation Status: employed Current/Historical Medications Scheduled PRN Acetaminophen (Tylenol), 1,000 MG PO Q6H PRN for Pain Ibuprofen (Ibuprofen), 600 MG PO Q6H PRN for Pain Allergies Coded Allergies: Cefepime (Verified Allergy, Intermediate, redness to chest, hives, itching , 06/18/17) Sulfa Antibiotics (Verified Allergy, Intermediate, HIVES, 06/18/17) Yeast (Verified Allergy, Mild, 06/18/17) Hydrocortisone (Verified Allergy, Unknown, Hives/Rash, 06/18/17) Otic Suspenion Sulfamethoxazole w/Trimethoprim (Verified Allergy, Unknown, HIVES, 06/18/17 ) Nitrofurantoin (Verified Adverse Reaction, Unknown, ITCHING, 06/18/17) Physical Exam Vital Signs Date Time Temp Pulse Resp B/P (MAP) Pulse Ox O2 Delivery O2 Flow Rate FiO2 06/18/17 02:26 66 20 130/68 95 06/18/17 01:59 70 16 141/71 98 Room Air 06/17/17 23:42 36.8 88 16 149/87 98 Room Air Physical Exam Vital signs reviewed. General: Well-appearing, in no significant distress. HEENT: No scleral icterus, PERRLA, neck supple. Atraumatic. Cardiovascular: Regular rate and rhythm, no extra sounds. Pulmonary: Clear to auscultation bilaterally, normal work of breathing. Abdomen: Soft, RLQ tenderness to palpation, some guarding, nondistended, positive bowel sounds. Musculoskeletal: Atraumatic, no peripheral edema. No CVA tenderness. Neurologic: Patient awake alert and oriented x 3, full strength in all 4 extremities. Cranial nerves 2 through 12 grossly intact. Skin: Warm, dry, no rash Medical Decision & Procedures ER Provider Diagnostic Interpretation: Radiology results as stated below per my review and radiologist interpretation: US PELVIC/ENDOVAG: Assuming a negative test. No complex adnexal lesions or torsion. Small hypoechoic foci in the uterus. 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 Radiologist: Brianna Dove M.D. Study ready at 01:26 and initial results transmitted at 01:40. Laboratory Results 06/18/17 00:10 Red Blood Count 4.76, Mean Corpuscular Volume 80.0, Mean Corpuscular Hemoglobin 27.5, Mean Corpuscular Hemoglobin Concent 34.4, Mean Platelet Volume 10.6, Neutrophils (%) (Auto) 56.1, Lymphocytes (%) (Auto) 33.7, Monocytes (%) (Auto) 6.6, Eosinophils (%) (Auto) 3.2, Basophils (%) (Auto) 0.3, Neutrophils # (Auto) 4.00, Lymphocytes # (Auto) 2.40, Monocytes # (Auto) 0.47, Eosinophils # (Auto) 0.23, Basophils # (Auto) 0.02 06/18/17 00:10 Test 06/18/17 00:10 White Blood Count 7.13 K/uL (4.8-10.8) Red Blood Count 4.76 M/uL (4.2-5.4) Hemoglobin 13.1 g/dL (12.0-16.0) Hematocrit 38.1 % (37-47) Mean Corpuscular Volume 80.0 fL (80-100) Mean Corpuscular Hemoglobin 27.5 pg (25-34) Mean Corpuscular Hemoglobin Concent 34.4 g/dl (32-36) Platelet Count 185 K/uL (130-400) Mean Platelet Volume 10.6 fL (7.4-10.4) Neutrophils (%) (Auto) 56.1 % Lymphocytes (%) (Auto) 33.7 % Monocytes (%) (Auto) 6.6 % Eosinophils (%) (Auto) 3.2 % Basophils (%) (Auto) 0.3 % Neutrophils # (Auto) 4.00 K/uL (1.4-6.5) Lymphocytes # (Auto) 2.40 K/uL (1.2-3.4) Monocytes # (Auto) 0.47 K/uL (0.11-0.59) Eosinophils # (Auto) 0.23 K/uL (0-0.5) Basophils # (Auto) 0.02 K/uL (0-0.2) RDW Standard Deviation 36.7 fL (36.4-46.3) RDW Coefficient of Variation 12.5 % (11.5-14.5) Immature Granulocyte % (Auto) 0.1 % Immature Granulocyte # (Auto) 0.01 K/uL (0.00-0.02) Urine Color YELLOW Urine Appearance CLEAR (CLEAR) Urine pH 6.0 (4.5-7.5) Urine Specific [place] 1.028 (1.000-1.030) Urine Protein NEG (NEG) Urine Glucose (UA) NEG (NEG) Urine Ketones NEG (NEG) Urine Occult Blood TRACE (NEG) Urine Nitrite NEG (NEG) Urine Bilirubin NEG (NEG) Urine Urobilinogen NEG (NEG) Urine Leukocyte Esterase NEG (NEG) Urine WBC (Auto) 1-5 /hpf (0-5) Urine RBC (Auto) 0-4 /hpf (0-4) Urine Hyaline Casts (Auto) 1-5 /lpf (0-5) Urine Epithelial Cells (Auto) >30 /lpf (0-5) Urine Bacteria (Auto) NEG (NEG) Urine Test NEG (NEG) Anion Gap 8.0 mmol/L (3-11) Est Creatinine Clear Calc Drug Dose 138.0 ml/min Estimated GFR () 131.5 Estimated GFR (Non- 113.5 BUN/Creatinine Ratio 15.1 (10-20) Calcium Level 8.9 mg/dl (8.5-10.1) Total Bilirubin 0.3 mg/dl (0.2-1) Direct Bilirubin < 0.1 mg/dl (0-0.2) Aspartate Amino Transf (AST/SGOT) 16 U/L (15-37) Alanine Aminotransferase (ALT/SGPT) 21 U/L (12-78) Alkaline Phosphatase 88 U/L (45-117) Total Protein 7.4 gm/dl (6.4-8.2) Albumin 3.9 gm/dl (3.4-5.0) Laboratory results per my review. Medications Administered Medications (Trade) Dose Ordered Sig/Jared Route Start Time Stop Time Status Last Admin Dose Admin Sodium Chloride 1,000 ml @ 999 mls/hr Q1H1M STAT IV 06/18/17 00:05 06/18/17 01:05 DC 06/18/17 00:18 999 MLS/HR Morphine Sulfate (MoRPHine SULFATE INJ) 4 mg NOW STAT IV 06/18/17 00:05 06/18/17 00:08 DC 06/18/17 00:18 4 MG Ondansetron HCl (Zofran Inj) 4 mg NOW STAT IV 06/18/17 00:05 06/18/17 00:08 DC 06/18/17 00:18 4 MG Ketorolac Tromethamine (Toradol Inj) 30 mg NOW STAT IV 06/18/17 02:11 06/18/17 02:12 DC 06/18/17 02:22 30 MG ED Course 0001: Past medical records reviewed. The patient was evaluated in room C6. A complete history and physical examination was performed. 0005: Ordered Zofran Inj 4 mg IV, Morphine Sulfate 4 mg IV, NSS 1000 ml @ 999 mls/hr IV. 0211: Ordered Toradol Inj 30 mg IV. 0224: Upon reevaluation, the patient appeared to have improvement of her symptoms. I discussed findings with the patient. She verbalized agreement of the treatment plan. The patient was discharged home. Medical Decision Differential diagnosis: Etiologies such as appendicitis, diverticulitis, PUD, biliary pathology, UTI, pancreatitis, obstruction, mesenteric ischemia, aortic pathology, infections, inflammatory bowel disease, renal colic, as well as others were entertained. Medication Reconciliation: I attest that I have personally reviewed the patient' s current medication list. Blood Pressure Screening: Patient was found to have an elevated blood pressure and was felt to be situational. This pt was evaluated and appeared to be in no distress. IV access was obtained and lab work was drawn. Pt was given IV morphine and zofran. Pt was noted to have had several visits for similar complaints in the past with multiple CT of the abd. US of pelvis was performed and is negative for acute abnl. Lab work is unrevealing. UA is negative, preg test is negative. Pt was feeling improved. I do not think a repeat CT of A/P is warranted, she has has 8 in 2016/2016. She has also had 7 US pelvis. Pt was advised to f/u with PCP and OBGYN. She will return to the ED for worsening of symptoms or any medical concerns. Impression Primary Impression: RLQ abdominal pain Scribe Attestation The scribe's documentation has been prepared under my direction and personally reviewed by me in its entirety. I confirm that the note above accurately reflects all work, treatment, procedures, and medical decision making performed by me. Departure Information Dispostion Home / Self-Care Referrals Oskar Weber M.D. (PCP) Forms Call Back Authorization, HOME CARE DOCUMENTATION FORM, IMPORTANT VISIT INFORMATION Patient Instructions My [facility] Additional Instructions Diagnosis: Abdominal pain Follow up with your doctor this week for reevaluation. If symptoms worsen or fever develops please return to the ED.
--- NOTE | 2017-06-18 07:31 | DIAGNOSTIC IMAGING REPORT ---
PELVIC COMPLETE NON OB, TRANSVAG-FEMALE PELVIS CLINICAL HISTORY: 32 years-old Female presenting with RLQ pain, history of dermoid and fibroid removal May 09, 2016, last menstrual period 06/15/2017. TECHNIQUE: Real-time grayscale and color and spectral Doppler ultrasound imaging of the pelvis was performed first using a transabdominal probe and subsequently transvaginal for better characterization. COMPARISON: 12/20/[address] from 10/11/2016.. FINDINGS: Uterus: Uterus contains 2 small subcentimeter hypoechoic masses, likely intramural fibroids. A septate uterus morphology noted. Anteverted. The uterus measures 7.2 x 3.5 x 5.3 cm. Endometrial stripe measures 3 mm in thickness. Endometrium normal-appearing. Cervix normal. Right adnexa: Right ovary normal. Right ovary measures 3.3 x 3.2 x 2.4 cm. Normal color Doppler flow and arterial and venous waveforms within the ovarian parenchyma. Left adnexa: Left ovary normal. Left ovary measures 1.8 x 1.3 x 2.0 cm. Normal color Doppler flow and arterial and venous waveforms within the ovarian parenchyma. Other: No free fluid. IMPRESSION: 1. No evidence of ovarian torsion. No ovarian mass. 2. Septate uterus. This be better evaluated with dedicated pelvic MRI. Electronically signed by: Nathan Haro M.D. 06/18/2017 7:29 AM Dictated Date/Time: 06/18/2017 7:25 AM
== END 2017-06-18 02:27 | disposition home or self-care (01) ==
LOC: C.EDB 23:38 → C.EDC 06-18 02:27
DX: R10.31 Right lower quadrant pain (principal); J45.909 Unspecified asthma, uncomplicated; G43.909 Migraine, unspecified, not intractable, without status migrainosus; Z80.9 Family history of malignant neoplasm, unspecified; Z82.49 Family history of ischemic heart disease and other diseases of the circulatory system; Z83.79 Family history of other diseases of the digestive system

== ENCOUNTER 2017-07-10 18:44 | Emergency (ER) | payer OTHER ==
[~2017-07-10] VITALS: Ht 170.2 cm; Wt 90.0 kg
[2017-07-10 18:47] VITALS: Ht 170.2 cm; Wt 90.0 kg
[2017-07-10] MEDS ORDERED: OXYCODONE/ACETAMINOPHEN 5-325 TAB PO STA (19:29)
--- NOTE | 2017-07-10 19:59 | DIAGNOSTIC IMAGING REPORT ---
LUMBAR SPINE 5 VIEWS CLINICAL HISTORY: Low back pain. FINDINGS: 5 views of the lumbar spine are correlated with abdominal CT dated 10/11/2016. The skeletal structures are well mineralized. There is no radiographic evidence of fracture or malalignment. Vertebral body height and alignment are maintained. The transverse and spinous processes are intact. There is no evidence of spondylolysis. The intervertebral disc spaces are well-maintained. The visualized bony pelvis appears intact. There is a nonobstructed abdominal bowel gas pattern. IMPRESSION: Unremarkable radiographic evaluation of the lumbosacral spine. Electronically signed by: Morgan Zepeda M.D. 07/10/2017 7:58 PM Dictated Date/Time: 07/10/2017 7:57 PM
[2017-07-10] MEDS ORDERED: PERCOCET HOME PACK PO ONE (20:15)
[2017-07-10] MEDS ORDERED: OXYC-57 PO (20:15)
[2017-07-10 20:22] VITALS: BP 119/84; PULSE 84; TEMP 36.6; O2SAT 97
--- NOTE | 2017-07-11 23:25 | EMERGENCY ROOM VISIT NOTE ---
ED Visit Note First contact with patient: 19:16 Chief Complaint: I'm having bad pain in my lower back. History of Present Illness: Ms. Izquierdo is a 32-year-old white female who ambulates into the ED accompanied by her complaining of lumbar back pain. Historically patient reports she has a history of chronic low back pain. She reports there is been no recent direct trauma, but then goes to report that she was has had mild exacerbation of her pain over the last 24 hours and then today she was walking around a local sporting event and her pain worsened. Currently she is describing a throbbing discomfort in the L4 through L5 area. She rates this discomfort 10/10. There is mild radiation of her pain into the right buttocks. Her pain worsens with all movement of the lumbar spine and palpation. She has not identified any alleviating factors related to the pain. She has not taken any medications for pain prior to arrival at the hospital. Social with her pain she reports some time she feels like her knees are going to give out but she does not collapse and is able to catch herself. She denies any associated symptoms including fevers, chills, sweats, skin eruptions, skin color changes, abdominal pain, nausea, vomiting, diarrhea, constipation, rectal bleeding, black/tarry stools, urinary symptoms, hematuria, vaginal bleeding, vaginal discharge, genital paresthesias, bowel and bladder dysfunction, lower extremity weakness/numbness/tingling. Review of Systems: As noted above in history of present illness. All body systems were reviewed and found to be negative as noted above. Past Medical History: Asthma, pneumonia, migraine headaches, unspecified abdominal surgery, unspecified left ear surgery and unspecified right knee surgery. Current Medications: Patient denies. Allergies to Medications: Cefepime, hydrocortisone, sulfa, nitrofurantoin. Social History: He is currently employed; she feels safe in her home environment ; she denies tobacco and alcohol use. Physical Examination: Vital Signs: Date Time Temp Pulse Resp B/P (MAP) Pulse Ox O2 Delivery O2 Flow Rate FiO2 07/10/17 20:22 36.6 84 16 119/84 97 07/10/17 18:47 36.6 80 16 137/77 97 Room Air GENERAL: 32-year-old female in moderate distress due to pain, nontoxic-appearing , afebrile and hemodynamically stable. NEUROLOGICAL: Awake, alert and oriented to person, place and time. Answering questions appropriately and following commands. Normal gait. Good hand eye coordination. No focal motor or sensory deficits. SKIN: Warm, dry and pink. No soft tissue eruptions or trauma noted. HEENT: Atraumatic and normocephalic. BACK: No tenderness over the bony cervical and thoracic spine. No CVA tenderness. Moderate tenderness in the L4 through S1 area without bony deformity, bony crepitus, swelling, ecchymosis or step-offs. Decreased range of motion in all movements at the waist due to pain. Unable to perform a valid straight leg raise test due to patient's pain and inability to relax. THORAX: Lungs sounds are clear to auscultation and equal bilaterally with symmetrical chest wall. ABDOMEN: Obese, soft and nontender. Positive bowel sounds in all quadrants. No guarding, rigidity or organomegaly. EXTREMITIES: Moves all extremities well on command and with purpose. All distal neurovascular statuses are intact and equal bilaterally. No calf tenderness or cords. 2+ patellar and Achilles deep tendon reflexes intact and equal bilaterally. 2+ all movements of the hips, knees, ankles and toes. Throughout the legs and feet the skin was warm and pink and capillary refill is brisk. She was able to distinguish light sensations through all dermatomes of the legs. ED Course: Patient is assessed as noted above. Patient's medications were reviewed. Lumbar Spine X-Rays: Were read by myself and the radiologist and shows an unremarkable evaluation of the lumbar sacral spine with no evidence of fracture , malalignment. Patient was given one Percocet tablet by mouth for pain. Patient was educated about today's findings and instructed on her treatment plan ; she verbalized understanding and agreement with this plan. Clinical Impression: Acute on chronic lumbar back pain. Decision-Making: Initially my differential diagnosis I considered herniated disc , muscle strain, muscle spasm, kidney stone, pancreatitis and other causes. Disposition: Patient discharged home in stable condition accompanied by her ; prior to departure she was reassessed and subjectively reported she was feeling better and rated her discomfort 8/10. Plan: Him for leisure's were discussed with the patient including rest, ice and a sliding pain scale of ibuprofen, acetaminophen and Percocet; she was given appropriate narcotic precautions and her name was checked on state database and no red flags were noted. Additional proper lifting and moving techniques were discussed with the patient. Patient was encouraged to follow-up with family physician for recheck in 3-4 days. Patient was encouraged return ED for uncontrolled pain, fevers, abdominal pain, vomiting, rectal/genital numbness/tingling, bowel and bladder dysfunction, leg weakness/numbness/tingling or any new/concerning symptoms.
== END 2017-07-10 20:23 | disposition home or self-care (01) ==
LOC: C.EDB 18:45 → C.EDD 20:23
DX: M54.5 Low back pain (principal); G89.29 Other chronic pain; J45.909 Unspecified asthma, uncomplicated; Z88.2 Allergy status to sulfonamides; Z88.8 Allergy status to other drugs, medicaments and biological substances

== ENCOUNTER 2017-07-18 23:48 | Emergency (ER) | payer OTHER ==
[~2017-07-18] VITALS: Ht 170.2 cm; Wt 97.3 kg
[~2017-07-18 23:48] MED LIST changes: +OXYC-57 PO
[2017-07-18 23:51] VITALS: Ht 170.2 cm; Wt 97.3 kg
[2017-07-19] MEDS ORDERED: TROLAMINE SALICYLATE 10% CRM 255 APPLN/85 GM TUBE EXT STA (00:02)
[2017-07-19] MEDS ORDERED: KETOROLAC TROMETHAMINE 60 MG/2 ML VIAL IM STA (00:02)
--- NOTE | 2017-07-19 00:17 | EMERGENCY ROOM VISIT NOTE ---
History First contact with patient: 23:55 Chief Complaint: BACK PAIN Stated Complaint: LOWER BACK PAIN History of Present Illness The patient is a 32 year old female who presents to the Emergency Room with complaints of low back pain for the past few weeks described as aching, ranging in severity 8 out of 10 that is worse with movement and better with rest that occasionally radiates down the right leg. Patient was here last week for similar complaints. She states the pain got better with the pain medicine and then the pain came back. Patient tried Motrin and Tylenol with minimal relief of symptoms. She has not done physical therapy. She's not seen a back doctor. 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 Patient denies chest pain, dyspnea, loss of bowel or bladder control, saddle anesthesia , fever, chills, leg weakness, IV drug abuse. Patient is ambulatory without difficulties. No trauma. Review of Systems See HPI for pertinent positives & negatives. A total of 10 systems reviewed and were otherwise negative. Past Medical/Surgical History Medical Problems: (1) Asthma (2) Hand pain (3) Migraine Unspecified W/O Intract Mgrn W/O Status Migrainosus Surgical Problems: (1) Ear surgery Family History Cancer FH: heart disease Gallbladder disease Hypertension Social History Smoking Status: Never Smoker Alcohol Use: none Drug Use: none Marital Status: Housing Status: lives with family, lives with significant other Occupation Status: employed Current/Historical Medications Scheduled PRN Acetaminophen (Tylenol), 1,000 MG PO Q6H PRN for Pain Ibuprofen (Ibuprofen), 600 MG PO Q6H PRN for Pain Oxycodone/Acetaminophen 5MG/325MG (Percocet 5MG/325MG), 1 TAB PO Q6H PRN for Pain Physical Exam Vital Signs Date Time Temp Pulse Resp B/P (MAP) Pulse Ox O2 Delivery O2 Flow Rate FiO2 07/18/17 23:51 36.8 105 18 139/88 97 Room Air Physical Exam VITALS: Vitals are noted on the nurse's note and reviewed by myself. Vital signs stable. GENERAL: White female ambulating, in no acute distress, nondiaphoretic, well- developed well-nourished. SKIN: Capillary reflex less than 2 seconds. HEENT: Normocephalic. PERRLA. EOMI. Nares patent. Mucous membranes moist. Neck is supple without nuchal rigidity. HEART: Regular rate and rhythm without murmurs gallops or rubs. LUNGS: Clear to auscultation bilaterally without wheezes, rales or rhonchi. No retractions or accessory muscle use. ABDOMEN: Positive bowel sounds x 4. Normal tympanic percussion. Soft, nontender, without masses or organomegaly. Schuster sign negative. No guarding or rebound tenderness. MUSCULOSKELETAL: No gross musculoskeletal defects. No thoracic or lumbar tenderness on exam, paraspinal lumbar tenderness. No CVA tenderness. Positive straight leg on the right. Patient can ambulate without difficulties. Patient can plantarflex and dorsiflex without difficulties. NEURO: Patient was alert and oriented to person place and time. Normal sensation to light and sharp touch. Deep tendon reflexes 2+ patella bilaterally. No focal neurological deficits. Medical Decision & Procedures Medications Administered Medications (Trade) Dose Ordered Sig/Jared Route Start Time Stop Time Status Last Admin Dose Admin Ketorolac Tromethamine (Toradol Inj) 60 mg NOW STAT IM 07/19/17 00:02 07/19/17 00:05 DC 07/19/17 00:10 60 MG ED Course Prior records/ancillary studies reviewed. Triage Nursing notes reviewed. Additional history obtained from family The patient's history was concerning for back pain. Differential diagnosis: Etiologies such as musculoskeletal, disc herniation, fracture, aortic disease, metastatic disease, cord compression, discitis, infection, renal colic, gastrointestinal, acute exacerbation of chronic back pain, sciatica, cauda equina, as well as others were entertained. Physical findings: As above. No focal neurologic findings noted. ER treatment provided: Toradol, Myoflex cream On reassessment the patient felt better. Diagnostics interpreted by me: Imaging studies: LUMBAR SPINE 5 VIEWS CLINICAL HISTORY: Low back pain. FINDINGS: 5 views of the lumbar spine are correlated with abdominal CT dated 10/11/2016. The skeletal structures are well mineralized. There is no radiographic evidence of fracture or malalignment. Vertebral body height and alignment are maintained. The transverse and spinous processes are intact. There is no evidence of spondylolysis. The intervertebral disc spaces are well-maintained. The visualized bony pelvis appears intact. There is a nonobstructed abdominal bowel gas pattern. IMPRESSION: Unremarkable radiographic evaluation of the lumbosacral spine. Electronically signed by: Morgan Zepeda M.D. 07/10/2017 7:58 PM Dictated Date/Time: 07/10/2017 7:57 PM This appears to be consistent with lumber radiculopathy. Patient had 6 narcotic prescriptions this year. Patient has not then physical therapy or seen a back specialist for her ongoing back problems. She is strongly encouraged to follow-up with orthopedic spine and the family care for further evaluation treatment for her ongoing back pain. She is advised to stretch the area and take anti-inflammatories for her pain. She is advised to use the muscle cream as needed. She was counseled on narcotics and how they are habit forming. She verbalizes understanding of this. The patient's physical examination and detailed history did not reveal any red flags for back pain such as those listed in the differential diagnosis. Therefore advanced diagnostics and consultations were felt to be unwarranted. The patient is advised to return to the ER immediately for severe pain, inability to walk, fevers, leg weakness, worsening signs or symptoms or as needed. Patient ambulated out of the ER without difficulties. By the evaluation outlined above emergent etiologies such as fracture, aortic disease, metastatic disease, infection, renal colic, gastrointestinal, cord compression, cauda equina, as well as others were deemed relatively unlikely. The pt informed about the findings as listed above. All questions were answered and pleased with the treatment. Return instructions were outlined and the patient was discharged in stable condition. Outpatient prescription management: Myoflex cream Referral: The patient was referred back to orthopedic spine and/or primary care physician for follow-up in 2 to 3 days for a recheck of the current condition. Medical Decision As above [place] Drug Monitoring Program Search Results: patient reviewed within database, see additional documentation (patient's had 6 narcotic prescriptions this year.) Medication Reconcilliation Current Medication List: was personally reviewed by me Blood Pressure Screening Patient's blood pressure: Normal blood pressure Impression Primary Impression: Lumbar radiculopathy Departure Information Dispostion Home / Self-Care Condition GOOD Referrals Chandu Meraz, DO Forms HOME CARE DOCUMENTATION FORM, IMPORTANT VISIT INFORMATION Patient Instructions Lumbar Radiculopathy, My [facility] Additional Instructions DO NOT drive, drink alcohol, operate machinery, or perform dangerous activities today. You were given medications in the ER that can affect your ability to safely function or operate a vehicle. Myoflex cream: Apply to the affected area 3 times a day. Ibuprofen(Motrin, Advil) may be used for fever or pain. Use 600mg every six hours as needed. Take with food. Avoid using more than 2400mg in a 24 hour period. Do not use 2400mg per day for more than three consecutive days without physician direction. Prolonged inappropriate use can lead to stomach upset or ulcers. This medication can be taken if you need to drive, work, or perform activities which may be dangerous when taking narcotic pain medication. (AND/OR) Acetaminophen(Tylenol) may be used for fever or pain. Use 1000mg every six hours as needed. Avoid using more than 3000mg in a 24 hour period. This medication can be taken if you need to drive, work, or perform activities which may be dangerous when taking narcotic pain medication. Rest and avoid heavy lifting until your symptoms resolve and then gradually return to full activity. A good rule of thumb is if it hurts your back to perform a certain activity, then it should be avoided until you are healthy again. A heating pad, warm compresses, or a hot shower may help with tight muscles and can be done several times a day as needed. Continue current medications. Return to the ER immediately for any numbness, tingling, severe pain, loss of control of your bowels or bladder, inability to walk, or as needed. Follow up with your primary care physician/orthopedics spine within 3-5 days for a recheck of your current condition.
[2017-07-19 00:18] VITALS: BP 139/88; PULSE 98; TEMP 36.8; O2SAT 98
== END 2017-07-19 00:19 | disposition home or self-care (01) ==
LOC: C.EDB 23:49 → C.EDA 07-19 00:19
DX: M54.16 Radiculopathy, lumbar region (principal); Z82.49 Family history of ischemic heart disease and other diseases of the circulatory system

== ENCOUNTER 2017-08-09 21:37 | Emergency (ER) | payer OTHER ==
[~2017-08-09] VITALS: Ht 170.2 cm; Wt 97.5 kg
[~2017-08-09 21:37] MED LIST changes: -OXYC-57 PO
[2017-08-09 21:42] VITALS: TEMP 36.6; Ht 170.2 cm; Wt 97.5 kg
[2017-08-09] MEDS ORDERED: ONDANSETRON INJ 2 MG/ML 2 ML VIAL IV STA ×2 (21:49→23:39)
[2017-08-09] MEDS ORDERED: KETOROLAC TROMETHAMINE 30 MG/ML VIAL IV STA (21:49)
--- NOTE | 2017-08-09 21:54 | EMERGENCY ROOM VISIT NOTE ---
History Report prepared by Phyllis: Aubrey Jay Under the Supervision of: Dr. Morgan Huang M.D. First contact with patient: 21:44 Chief Complaint: FLANK PAIN Stated Complaint: RIGHT SIDE BACK PAIN History of Present Illness The patient is a 32 year old female who presents to the Emergency Room with complaints of worsening right sided flank pain that began two days ago. She rates her pain a 9/10 in severity. Her pain is exacerbated with any movement, exertion, or even talking. She has a history of kidney stones, but is unsure if it feels similar. She is also experiencing nausea, hot flashes, and burning with urination. She denies any fevers, abdominal pain, vomiting, or abnormal vaginal discharge. Her pain does not radiate anywhere else in her body. She denies any chance for . Source of History: patient Onset: two days ago Position: back (right flank) Symptom Intensity: 9/10 Quality: sharp Timing: worsening Modifying Factors (Worsening): exertion, movement, other (Talking) Associated Symptoms: + nausea, + urinary symptoms (burning), No fevers, No vomiting, No abdominal pain Note: She denies any abnormal vaginal discharge. She has been experiencing hot flashes. Review of Systems See HPI for pertinent positives & negatives. A total of 10 systems reviewed and were otherwise negative. Past Medical & Surgical Medical Problems: (1) Asthma (2) Hand pain (3) Migraine Unspecified W/O Intract Mgrn W/O Status Migrainosus Surgical Problems: (1) Ear surgery Family History Cancer FH: heart disease Gallbladder disease Hypertension Kidney stones Social History Smoking Status: Never Smoker Smokeless Tobacco Use: No Alcohol Use: none Drug Use: none Marital Status: Housing Status: lives with family, lives with significant other Occupation Status: employed Current/Historical Medications Scheduled PRN Acetaminophen (Tylenol), 1,000 MG PO Q6H PRN for Pain Ibuprofen (Ibuprofen), 600 MG PO Q4H PRN for Pain Allergies Coded Allergies: Cefepime (Verified Allergy, Intermediate, redness to chest, hives, itching , 07/19/17) Sulfa Antibiotics (Verified Allergy, Intermediate, HIVES, 07/19/17) Yeast (Verified Allergy, Mild, 07/19/17) Hydrocortisone (Verified Allergy, Unknown, Hives/Rash, 07/19/17) Otic Suspenion Sulfamethoxazole w/Trimethoprim (Verified Allergy, Unknown, HIVES, ) Nitrofurantoin (Verified Adverse Reaction, Unknown, ITCHING, 07/19/17) Physical Exam Vital Signs Date Time Temp Pulse Resp B/P (MAP) Pulse Ox O2 Delivery O2 Flow Rate FiO2 08/10/17 00:07 78 15 131/88 97 08/09/17 23:57 75 15 128/76 97 08/09/17 21:42 36.6 80 20 150/75 98 Room Air Physical Exam GENERAL: Patient is in no acute distress. HEENT: No acute trauma, normocephalic atraumatic, mucous membranes moist, no nasal congestion, no scleral icterus. NECK: No stridor, no adenopathy, no meningismus, trachea is midline. LUNGS: Clear to auscultation bilaterally, no wheeze, no rhonchi, breath sounds equal. HEART: Without murmurs gallops or rubs, regular rate and rhythm. ABDOMEN: Soft, nontender, bowel sounds positive, no hernias, no peritonitis. BACK: Right flank tenderness with percussion and palpation. EXTREMITIES: No cyanosis or edema, full range of motion of all the joints without pain or difficulty, no signs for acute trauma. NEUROLOGIC: Oriented x 3, no acute motor or sensory deficits, no focal weakness. SKIN: No rash, no jaundice, no diaphoresis. Medical Decision & Procedures ER Provider Diagnostic Interpretation: Radiology results as stated below per my review and radiologist interpretation: ABD/PELVIS WITHOUT FOR STONE CT DOSE: 1743.30 mGy.cm HISTORY: Pain EVALUATE FLANK PAIN/HEMATURIA TECHNIQUE: Multiaxial CT images of the abdomen and pelvis were performed without the use of intravenous and oral contrast according to the standard department stone protocol. A dose lowering technique was utilized adhering to the principles of ALARA. COMPARISON STUDY: 10/11/2016 FINDINGS: The lung bases are clear. The unenhanced liver, gallbladder, spleen, pancreas, and adrenal glands are unremarkable. No renal stones or hydronephrosis. No bowel wall thickening or obstruction. The pelvic organs are unremarkable. No suspicious lytic or blastic osseous lesions. Several small right ovarian follicular cysts similar to the prior exam. No free fluid within the pelvic cul-de-sac. IMPRESSION: No renal stones or hydronephrosis. Several small follicular cysts of the right ovary. Otherwise negative abdomen and pelvis The above report was generated using voice recognition software. It may contain grammatical, syntax or spelling errors. Electronically signed by: René Rogers M.D. 08/09/2017 10:19 PM Dictated Date/Time: 08/09/2017 10:16 PM Laboratory Results 08/09/17 22:05 Red Blood Count 4.98, Mean Corpuscular Volume 81.1, Mean Corpuscular Hemoglobin 27.1, Mean Corpuscular Hemoglobin Concent 33.4, Mean Platelet Volume 11.3, Neutrophils (%) (Auto) 57.8, Lymphocytes (%) (Auto) 32.1, Monocytes (%) (Auto) 7.6, Eosinophils (%) (Auto) 2.3, Basophils (%) (Auto) 0.1, Neutrophils # (Auto) 3.96, Lymphocytes # (Auto) 2.20, Monocytes # (Auto) 0.52, Eosinophils # (Auto) 0.16, Basophils # (Auto) 0.01 08/09/17 22:05 Test 08/09/17 21:49 08/09/17 22:05 Urine Color YELLOW Urine Appearance CLOUDY (CLEAR) Urine pH 5.5 (4.5-7.5) Urine Specific [place] 1.011 (1.000-1.030) Urine Protein NEG (NEG) Urine Glucose (UA) NEG (NEG) Urine Ketones NEG (NEG) Urine Occult Blood TRACE (NEG) Urine Nitrite NEG (NEG) Urine Bilirubin NEG (NEG) Urine Urobilinogen NEG (NEG) Urine Leukocyte Esterase NEG (NEG) Urine RBC 0-4 /hpf (0-4) Urine WBC 0 /hpf (0-5) Urine Epithelial Cells >30 /lpf (0-5) Urine Bacteria NEG (NEG) White Blood Count 6.86 K/uL (4.8-10.8) Red Blood Count 4.98 M/uL (4.2-5.4) Hemoglobin 13.5 g/dL (12.0-16.0) Hematocrit 40.4 % (37-47) Mean Corpuscular Volume 81.1 fL (80-100) Mean Corpuscular Hemoglobin 27.1 pg (25-34) Mean Corpuscular Hemoglobin Concent 33.4 g/dl (32-36) Platelet Count 188 K/uL (130-400) Mean Platelet Volume 11.3 fL (7.4-10.4) Neutrophils (%) (Auto) 57.8 % Lymphocytes (%) (Auto) 32.1 % Monocytes (%) (Auto) 7.6 % Eosinophils (%) (Auto) 2.3 % Basophils (%) (Auto) 0.1 % Neutrophils # (Auto) 3.96 K/uL (1.4-6.5) Lymphocytes # (Auto) 2.20 K/uL (1.2-3.4) Monocytes # (Auto) 0.52 K/uL (0.11-0.59) Eosinophils # (Auto) 0.16 K/uL (0-0.5) Basophils # (Auto) 0.01 K/uL (0-0.2) RDW Standard Deviation 37.5 fL (36.4-46.3) RDW Coefficient of Variation 12.7 % (11.5-14.5) Immature Granulocyte % (Auto) 0.1 % Immature Granulocyte # (Auto) 0.01 K/uL (0.00-0.02) Anion Gap 7.0 mmol/L (3-11) Est Creatinine Clear Calc Drug Dose 128.6 ml/min Estimated GFR () 121.1 Estimated GFR (Non- 104.5 BUN/Creatinine Ratio 7.2 (10-20) Calcium Level 9.0 mg/dl (8.5-10.1) Total Bilirubin 0.4 mg/dl (0.2-1) Aspartate Amino Transf (AST/SGOT) 18 U/L (15-37) Alanine Aminotransferase (ALT/SGPT) 25 U/L (12-78) Alkaline Phosphatase 87 U/L (45-117) Total Protein 7.9 gm/dl (6.4-8.2) Albumin 4.1 gm/dl (3.4-5.0) Globulin 3.8 gm/dl (2.5-4.0) Albumin/Globulin Ratio 1.1 (0.9-2) Lipase 146 U/L (73-393) Human Chorionic Gonadotropin, Qual NEG (NEG) Laboratory results reviewed by me. Medications Administered Medications (Trade) Dose Ordered Sig/Jared Route Start Time Stop Time Status Last Admin Dose Admin Ondansetron HCl (Zofran Inj) 4 mg NOW STAT IV 08/09/17 21:49 08/09/17 21:52 DC 08/09/17 22:17 4 MG Ketorolac Tromethamine (Toradol Inj) 30 mg NOW STAT IV 08/09/17 21:49 08/09/17 21:52 DC 08/09/17 22:17 30 MG Hydromorphone HCl (Dilaudid Inj) 1 mg NOW STAT IV 08/09/17 22:54 08/09/17 22:55 DC 08/09/17 23:22 1 MG Ondansetron HCl (Zofran Inj) 4 mg NOW STAT IV 08/09/17 23:39 08/09/17 23:40 DC 08/09/17 23:46 4 MG Oxycodone HCl (Roxicodone Immediate Rel 5MG Home Pack) 1 homepack UD ONCE PO 08/10/17 00:00 08/10/17 00:01 DC 08/10/17 00:06 1 HOMEPACK ED Course 2144: The patient was evaluated in room C3. A complete history and physical exam was performed. 2149: Ordered Toradol Inj 30 mg IV, Zofran Inj 4 mg IV 2254: Ordered Dilaudid Inj 1 mg IV 2339: Ordered Zofran Inj 4 mg IV 0000: Ordered Oxycodone HCl 1 homepack PO 0012: Reevaluated the patient. Discussed results and discharge instructions: She verbalized understanding and agreement. The patient is ready for discharge. Medical Decision Differential diagnosis includes but is not limited to renal colic, pyelonephritis, musculoskeletal pain, renal failure, biliary colic, pancreatitis , , and appendicitis. There is no leukocytosis or concerning anemia. No significant electrolyte abnormality, kidney failure, hepatitis or pancreatitis. testing is negative. Urinalysis does not show infection or significant hematuria. Abdominal and pelvis CT shows a few cysts on the right ovary. No evidence for ureteral obstruction or for hydronephrosis. No bowel obstruction. On exam, the patient was not febrile or toxic. The patient received IV Toradol, IV Zofran and IV Dilaudid. She eventually received a second dose of IV Zofran. The patient's pain is reproducible on palpation and also with movement. Her workup is benign. The pain is likely musculoskeletal. The patient was reassured, she is being discharged. Conservative measures were advised. [place] Drug [place] Search Results: patient reviewed within database Drug Monitoring Findings: Her last pain prescription was filled on 07/11. It was 8 pills of Oxycodone. Medication Reconcilliation Current Medication List: was personally reviewed by me Blood Pressure Screening Patient's blood pressure: Elevated blood pressure Blood pressure disposition: Elevated BP felt to be situational Impression Primary Impression: Right flank pain Scribe Attestation The scribe's documentation has been prepared under my direction and personally reviewed by me in its entirety. I confirm that the note above accurately reflects all work, treatment, procedures, and medical decision making performed by me. Departure Information Dispostion Home / Self-Care Referrals Oskar Weber M.D. (PCP) Forms HOME CARE DOCUMENTATION FORM, IMPORTANT VISIT INFORMATION, Work Instructions Patient Instructions My [facility] Additional Instructions otc pain meds heat and massage will help no heavy lifting oxy ir 1 tab every 4 hours for severe pain see carmelita sheridan this week for a recheck return for fever or if worsening testing and imaging today was all ok
[2017-08-09] MEDS ORDERED: MoRPHine SULFATE 4 MG/ML 1 ML CARP\\VIAL IV PRN (22:00)
[2017-08-09 22:20] LABS: BASO % 0.1 %; BASO ABS # 0.01 K/uL (0-0.2); COMPLETE YES; EOS % 2.3 %; HEMATOCRIT 40.4 % (37-47); IG% 0.1 %; LYMPH % 32.1 %; MEAN CELL VOLUME 81.1 fL (80-100); MEAN CORPUSCULAR HEMOGLOBIN 27.1 pg (25-34); MEAN CORPUSCULAR HGB CONC 33.4 g/dl (32-36); MEAN PLATELET VOLUME 11.3 fL (7.4-10.4); MONO % 7.6 %; NEUT % 57.8 %; PLATELET COUNT 188 K/uL (130-400); RED BLOOD COUNT 4.98 M/uL (4.2-5.4); WHITE BLOOD COUNT 6.86 K/uL (4.8-10.8)
--- NOTE | 2017-08-09 22:20 | DIAGNOSTIC IMAGING REPORT ---
ABD/PELVIS WITHOUT FOR STONE CT DOSE: 1743.30 mGy.cm HISTORY: Pain EVALUATE FLANK PAIN/HEMATURIA TECHNIQUE: Multiaxial CT images of the abdomen and pelvis were performed without the use of intravenous and oral contrast according to the standard department stone protocol. A dose lowering technique was utilized adhering to the principles of ALARA. COMPARISON STUDY: 10/11/2016 FINDINGS: The lung bases are clear. The unenhanced liver, gallbladder, spleen, pancreas, and adrenal glands are unremarkable. No renal stones or hydronephrosis. No bowel wall thickening or obstruction. The pelvic organs are unremarkable. No suspicious lytic or blastic osseous lesions. Several small right ovarian follicular cysts similar to the prior exam. No free fluid within the pelvic cul-de-sac. IMPRESSION: No renal stones or hydronephrosis. Several small follicular cysts of the right ovary. Otherwise negative abdomen and pelvis The above report was generated using voice recognition software. It may contain grammatical, syntax or spelling errors. Electronically signed by: René Rogers M.D. 08/09/2017 10:19 PM Dictated Date/Time: 08/09/2017 10:16 PM
[2017-08-09 22:21] LABS: MANUAL MICROSCOPIC REQUIRED? YES; REVIEW REQ? NO; URINE APPEARANCE CLOUDY (CLEAR); URINE BILIRUBIN NEG (NEG); URINE COLOR YELLOW; URINE NITRITE NEG (NEG); URINE PH 5.5 (4.5-7.5); URINE SPECIFIC GRAVITY 1.011 (1.000-1.030); UROBILINOGEN NEG (NEG)
[2017-08-09 22:28] LABS: URINE BACTERIA NEG (NEG); URINE RBC 0-4 /hpf (0-4); URINE WBC 0 /hpf (0-5); ZZUR CULT IF INDIC CLEAN CATCH NO
[2017-08-09 22:30] LABS: BUN/CREATININE RATIO 7.2 (10-20); CREATININE 0.76 mg/dl (0.60-1.20); POTASSIUM 3.8 mmol/L (3.5-5.1)
[2017-08-09 22:33] LABS: ALB/GLOB RATIO 1.1 (0.9-2)
[2017-08-09 22:45] LABS: PREG INTERNAL NEGATIVE QC NEG CLEAR BACKGROUND; PREG INTERNAL POSITIVE QC POS CONTROL LINE
[2017-08-09] MEDS ORDERED: HYDROmorphone INJ 2 MG/ML SYR/VIAL IV STA (22:54)
[2017-08-10] MEDS ORDERED: OXYCODONE IR HOME PACK PO ONE
[2017-08-10 00:07] VITALS: BP 131/88; PULSE 78; O2SAT 97
== END 2017-08-10 00:08 | disposition home or self-care (01) ==
LOC: C.EDB 21:38 → C.EDC 08-10 00:08
DX: R10.9 Unspecified abdominal pain (principal); J45.909 Unspecified asthma, uncomplicated; Z87.442 Personal history of urinary calculi; Z98.890 Other specified postprocedural states; Z82.49 Family history of ischemic heart disease and other diseases of the circulatory system; Z84.1 Family history of disorders of kidney and ureter

== ENCOUNTER 2017-08-20 23:23 | Emergency (ER) | payer OTHER ==
[~2017-08-20] VITALS: Ht 170.2 cm; Wt 97.9 kg
[2017-08-20 23:25] VITALS: TEMP 36.8; Ht 170.2 cm; Wt 97.9 kg
[2017-08-20] MEDS ORDERED: SODIUM CHLORIDE 0.9% 1000ML 1,000 ML IV STA (23:38)
[2017-08-20] MEDS ORDERED: KETOROLAC TROMETHAMINE 30 MG/ML VIAL IV STA (23:38)
[2017-08-20] MEDS ORDERED: ONDANSETRON INJ 2 MG/ML 2 ML VIAL IV STA (23:38)
--- NOTE | 2017-08-20 23:44 | EMERGENCY ROOM VISIT NOTE ---
History Report prepared by Phyllis: Maryann Weller Under the Supervision of: Dr. Javon Gutierres D.O. First contact with patient: 23:32 Chief Complaint: BACK PAIN Stated Complaint: LOWER SIDE BACK PAIN, THROWING UP History of Present Illness The patient is a 32 year old female who presents to the Emergency Room with complaints of worsening lower back pain beginning tonight. She rates the pain at a 9/10. The patient states that she vomited on the way here. She reports burning with urination, but denies vaginal discharge, blood in her urine, and pelvic pain. She reports that her last menstrual period was 2 weeks ago. The patient was seen here on August 09 and had a complete work-up done which was negative. Source of History: patient Onset: tonight Position: back (lower) Symptom Intensity: rated at a 9/10 Timing: worsening Associated Symptoms: + vomiting, + urinary symptoms (burning with urination) Note: patient denies: vaginal discharge, blood in urine, pelvic pain Review of Systems See HPI for pertinent positives & negatives. A total of 10 systems reviewed and were otherwise negative. Past Medical & Surgical Medical Problems: (1) Asthma (2) Hand pain (3) Migraine Unspecified W/O Intract Mgrn W/O Status Migrainosus Surgical Problems: (1) Ear surgery Family History Cancer FH: heart disease Gallbladder disease Hypertension Kidney stones Social History Smoking Status: Never Smoker Alcohol Use: none Drug Use: none Marital Status: Housing Status: lives with family, lives with significant other Occupation Status: employed Current/Historical Medications Scheduled PRN Acetaminophen (Tylenol), 1,000 MG PO Q6H PRN for Pain Ibuprofen (Ibuprofen), 600 MG PO Q4H PRN for Pain Allergies Coded Allergies: Cefepime (Verified Allergy, Intermediate, redness to chest, hives, itching , 08/20/17) Sulfa Antibiotics (Verified Allergy, Intermediate, HIVES, 08/20/17) Yeast (Verified Allergy, Mild, 08/20/17) Hydrocortisone (Verified Allergy, Unknown, Hives/Rash, 08/20/17) Otic Suspenion Sulfamethoxazole w/Trimethoprim (Verified Allergy, Unknown, HIVES, 08/20/17 ) Nitrofurantoin (Verified Adverse Reaction, Unknown, ITCHING, 08/20/17) Physical Exam Vital Signs Date Time Temp Pulse Resp B/P (MAP) Pulse Ox O2 Delivery O2 Flow Rate FiO2 08/21/17 01:37 78 18 116/69 99 Room Air 08/20/17 23:25 36.8 93 18 132/87 98 Room Air Physical Exam GENERAL: Patient is awake, alert, anxious, uncomfortable appearing, and in no acute distress. Patient is resting comfortably EYES: The conjunctivae are clear. The pupils are round and reactive. EARS, NOSE, MOUTH AND THROAT: The nose is without any evidence of any deformity. Mucous membranes are moist tongue is midline NECK: The neck is nontender and supple. RESPIRATORY: Normal respiratory effort is noted there is no evidence of wheezing rhonchi or rales CARDIOVASCULAR: Regular rate and rhythm noted there no murmurs rubs or gallops normal S1 normal S2 GASTROINTESTINAL: The abdomen is mildly distended, but soft. Bowel sounds are present in all quadrants. Abdomen is nontender. No guarding. No rigidity. BACK: No midline tenderness or or step-off noted range of motion in flexion extension as well as rotation no signs of muscle spasm noted. Right CVA tenderness to percussion. Range of motion intact. MUSCULOSKELETAL/EXTREMITIES: There is no evidence of gross deformity full range of motion is noted in the hips and shoulders SKIN: There is no obvious evidence of any rash. There are no petechiae, pallor or cyanosis noted. NEUROLOGIC: Patient is awake alert and oriented x3 strength is symmetric patellar reflexes are 2+ bilaterally Medical Decision & Procedures ER Provider Diagnostic Interpretation: Chest/Abdomen X-Ray: Chest: normal heart size. No definite infiltrate. Abdomen: Non-specific bowel gas pattern. No free air. No signs of obstruction. Laboratory Results 08/20/17 23:42 Red Blood Count 4.98, Mean Corpuscular Volume 79.5, Mean Corpuscular Hemoglobin 27.3, Mean Corpuscular Hemoglobin Concent 34.3, Mean Platelet Volume 11.0, Neutrophils (%) (Auto) 57.8, Lymphocytes (%) (Auto) 30.3, Monocytes (%) (Auto) 8.2, Eosinophils (%) (Auto) 3.3, Basophils (%) (Auto) 0.3, Neutrophils # (Auto) 4.58, Lymphocytes # (Auto) 2.40, Monocytes # (Auto) 0.65, Eosinophils # (Auto) 0.26, Basophils # (Auto) 0.02 08/20/17 23:42 Test 08/20/17 23:42 08/21/17 00:35 White Blood Count 7.92 K/uL (4.8-10.8) Red Blood Count 4.98 M/uL (4.2-5.4) Hemoglobin 13.6 g/dL (12.0-16.0) Hematocrit 39.6 % (37-47) Mean Corpuscular Volume 79.5 fL (80-100) Mean Corpuscular Hemoglobin 27.3 pg (25-34) Mean Corpuscular Hemoglobin Concent 34.3 g/dl (32-36) Platelet Count 171 K/uL (130-400) Mean Platelet Volume 11.0 fL (7.4-10.4) Neutrophils (%) (Auto) 57.8 % Lymphocytes (%) (Auto) 30.3 % Monocytes (%) (Auto) 8.2 % Eosinophils (%) (Auto) 3.3 % Basophils (%) (Auto) 0.3 % Neutrophils # (Auto) 4.58 K/uL (1.4-6.5) Lymphocytes # (Auto) 2.40 K/uL (1.2-3.4) Monocytes # (Auto) 0.65 K/uL (0.11-0.59) Eosinophils # (Auto) 0.26 K/uL (0-0.5) Basophils # (Auto) 0.02 K/uL (0-0.2) RDW Standard Deviation 36.9 fL (36.4-46.3) RDW Coefficient of Variation 12.7 % (11.5-14.5) Immature Granulocyte % (Auto) 0.1 % Immature Granulocyte # (Auto) 0.01 K/uL (0.00-0.02) Anion Gap 7.0 mmol/L (3-11) Est Creatinine Clear Calc Drug Dose 136.1 ml/min Estimated GFR () 129.3 Estimated GFR (Non- 111.6 BUN/Creatinine Ratio 14.0 (10-20) Calcium Level 8.7 mg/dl (8.5-10.1) Total Bilirubin 0.3 mg/dl (0.2-1) Direct Bilirubin < 0.1 mg/dl (0-0.2) Aspartate Amino Transf (AST/SGOT) 16 U/L (15-37) Alanine Aminotransferase (ALT/SGPT) 23 U/L (12-78) Alkaline Phosphatase 81 U/L (45-117) Total Protein 7.8 gm/dl (6.4-8.2) Albumin 3.9 gm/dl (3.4-5.0) Lipase 395 U/L (73-393) Human Chorionic Gonadotropin, Qual NEG (NEG) Urine Color YELLOW Urine Appearance CLEAR (CLEAR) Urine pH 5.0 (4.5-7.5) Urine Specific Willis 1.024 (1.000-1.030) Urine Protein NEG (NEG) Urine Glucose (UA) NEG (NEG) Urine Ketones NEG (NEG) Urine Occult Blood 1+ (NEG) Urine Nitrite NEG (NEG) Urine Bilirubin NEG (NEG) Urine Urobilinogen NEG (NEG) Urine Leukocyte Esterase NEG (NEG) Urine WBC (Auto) 0 /hpf (0-5) Urine RBC (Auto) 0-4 /hpf (0-4) Urine Hyaline Casts (Auto) 1-5 /lpf (0-5) Urine Epithelial Cells (Auto) >30 /lpf (0-5) Urine Bacteria (Auto) NEG (NEG) Laboratory results per my review. Medications Administered Medications (Trade) Dose Ordered Sig/Jared Route Start Time Stop Time Status Last Admin Dose Admin Ketorolac Tromethamine (Toradol Inj) 30 mg NOW STAT IV 08/20/17 23:38 08/20/17 23:40 DC 08/21/17 00:18 30 MG Sodium Chloride 1,000 ml @ 999 mls/hr Q1H1M STAT IV 08/20/17 23:38 08/21/17 00:38 DC 08/20/17 23:38 999 MLS/HR Ondansetron HCl (Zofran Inj) 4 mg NOW STAT IV 08/20/17 23:38 08/20/17 23:40 DC 08/21/17 00:17 4 MG Oxycodone HCl (Roxicodone Immediate Rel Tab) 5 mg NOW STAT PO 08/21/17 01:41 08/21/17 01:42 DC 08/21/17 01:49 5 MG Oxycodone HCl (Roxicodone Immediate Rel 5MG Home Pack) 1 homepack UD ONCE PO 08/21/17 01:45 08/21/17 01:46 DC 08/21/17 01:49 1 HOMEPACK ED Course 2335: The patient was evaluated in room B2. A complete history and physical examination were performed. 2338: Ordered Zofran Inj 4 mg IV, Sodium Chloride 1,000 ml @ 999 mls/hr IV, Toradol Inj 30 mg IV. 0141: Ordered Oxycodone HCl 5 mg PO. 0145: Ordered Oxycodone HCl 1 homepack PO. 0150: Upon reevaluation, the patient is resting. I discussed the results and treatment plan with her. She verbalized agreement of the treatment plan. She was discharged home. Medical Decision Differential diagnosis: Etiologies such as renal colic, appendicitis, diverticulitis, mesenteric ischemia, aortic pathology, infections, inflammatory bowel disease, PUD, biliary pathology, UTI, as well as others were entertained. Nursing notes reviewed. Patient's recent emergency department visit was also reviewed. The patient is a 32-year-old female who presented to the emergency department for acute right flank and right-sided abdominal pain. The patient was treated with pain medication in the emergency department. She was also treated with IV fluids and IV antiemetics. I discussed patient's laboratory and radiographic studies with her. At this time she does not have an acute surgical abdomen. Her white blood cell count was normal. Her urinalysis was not consistent with a urinary tract infection. The patient was encouraged to rest and avoid any strenuous activity. She was encouraged to call her primary care physician in the morning to schedule follow-up appointment. She was also encouraged to return to the emergency apartment immediately if symptoms change worsen or the need arises. Medication Reconcilliation Current Medication List: was personally reviewed by me Blood Pressure Screening Patient's blood pressure: Normal blood pressure Impression Primary Impression: Abdominal pain Scribe Attestation The scribe's documentation has been prepared under my direction and personally reviewed by me in its entirety. I confirm that the note above accurately reflects all work, treatment, procedures, and medical decision making performed by me. Departure Information Dispostion Home / Self-Care Referrals Oskar Weber M.D. (PCP) Forms HOME CARE DOCUMENTATION FORM, IMPORTANT VISIT INFORMATION Patient Instructions ED Abdominal Pain Unkn Cause, My [facility] Additional Instructions Call your family in the morning to schedule a follow-up appointment. Rest and avoid any strenuous activity. Continue all medications as prescribed. Problem Qualifiers Primary Impression: Abdominal pain Abdominal location: right upper quadrant Qualified Codes: R10.11 - Right upper quadrant pain
[2017-08-20 23:55] LABS: BASO % 0.3 %; BASO ABS # 0.02 K/uL (0-0.2); COMPLETE YES; EOS % 3.3 %; HEMATOCRIT 39.6 % (37-47); IG% 0.1 %; LYMPH % 30.3 %; MEAN CELL VOLUME 79.5 fL (80-100); MEAN CORPUSCULAR HEMOGLOBIN 27.3 pg (25-34); MEAN CORPUSCULAR HGB CONC 34.3 g/dl (32-36); MONO % 8.2 %; NEUT % 57.8 %; PLATELET COUNT 171 K/uL (130-400); RED BLOOD COUNT 4.98 M/uL (4.2-5.4); WHITE BLOOD COUNT 7.92 K/uL (4.8-10.8)
[2017-08-21 00:17] LABS: ALT/SGPT 23 U/L (12-78); AST/SGOT 16 U/L (15-37); BLOOD UREA NITROGEN 10 mg/dl (7-18); CALCIUM 8.7 mg/dl (8.5-10.1); CARBON DIOXIDE 27 mmol/L (21-32); CHLORIDE 106 mmol/L (98-107); CREATININE 0.72 mg/dl (0.60-1.20); GLUCOSE 85 mg/dl (70-99); POTASSIUM 3.7 mmol/L (3.5-5.1); SODIUM 140 mmol/L (136-145)
[2017-08-21 00:20] LABS: ALKALINE PHOSPHATASE 81 U/L (45-117)
[2017-08-21 00:21] LABS: PREG INTERNAL NEGATIVE QC NEG CLEAR BACKGROUND; PREG INTERNAL POSITIVE QC POS CONTROL LINE
[2017-08-21 01:20] LABS: URINE APPEARANCE CLEAR (CLEAR); URINE BILIRUBIN NEG (NEG); URINE COLOR YELLOW; URINE EPITHELIAL CELL AUTO >30 /lpf (0-5); URINE NITRITE NEG (NEG); URINE SPECIFIC GRAVITY 1.024 (1.000-1.030); UROBILINOGEN NEG (NEG)
[2017-08-21 01:37] VITALS: BP 116/69; PULSE 78; O2SAT 99
[2017-08-21 01:38] LABS: MANUAL MICROSCOPIC REQUIRED? NO; REVIEW REQ? NO
[2017-08-21] MEDS ORDERED: OXYCODONE HCL IR 5 MG TAB (IMMEDIATE RELEASE) PO STA (01:41)
[2017-08-21] MEDS ORDERED: OXYCODONE IR HOME PACK PO ONE (01:45)
--- NOTE | 2017-08-21 06:13 | DIAGNOSTIC IMAGING REPORT ---
ABDOMEN 2VIEW W/PA CHEST RTN HISTORY: 32 years-old Female ABDOMINAL PAIN/GI acute generalized abdominal pain with vomiting COMPARISON: Chest radiograph 05/15/2016, CT 08/09/2017 TECHNIQUE: PA chest with erect and supine views of the abdomen FINDINGS: Cardiomediastinal and hilar silhouettes are within normal limits. No pneumothorax, pleural effusion, focal airspace consolidation or overt pulmonary edema. Bones of the chest are grossly intact. Bowel gas pattern is nonobstructive. No urolith identified. No organomegaly. There is moderate stool volume of the cecum and ascending colon. There are phleboliths of the pelvis. Small bone islands of the left femur noted. IMPRESSION: 1. No acute cardiopulmonary process. 2. Nonobstructive bowel gas pattern. The above report was generated using voice recognition software. It may contain grammatical, syntax or spelling errors. Electronically signed by: Mike Foster M.D. 08/21/2017 6:12 AM Dictated Date/Time: 08/21/2017 6:09 AM
--- NOTE | 2017-08-24 19:13 | OPERATIVE REPORT ---
DATE OF OPERATION: 08/20/2017 PREOPERATIVE DIAGNOSES: Spondylolisthesis, stenosis, nerve root compression of L4-L5 lumbar spine. POSTOPERATIVE DIAGNOSIS: Same. PROCEDURE: Laminectomy and fusion, L4-L5; pedicle screw instrumentation and discectomy. Posterolateral fusion. SURGEON: Dr. Meraz. CATHODIC PROTECTION TECHNICIAN: Cristian Pineda PA-C. COMPLICATIONS: Zero. BLOOD LOSS: Less than 200. ANESTHETIC: General intubated. DESCRIPTION OF PROCEDURE: The patient was taken to the operating room and general intubated, anesthetic provided to the patient, placed prone, prepped and draped sterile. We scrubbed her first with Betadine, prepped her with ChloraPrep and draped her sterile. We commenced with skin incision, a formal timeout obtained prior the second soft tissues same plane down over the facet joints and transverse processes. I put in a deep self-retaining retractor. We decompressed the neural elements. I protected each and every nerve root which will be the L4 nerve root above, L5 nerve root below the dura. There was no injury. The patient had significant amount of facet joint hypertrophy, the entry points of the pedicles were difficult. I safely got a pedicle screw into L5, L4 bilaterally. I attempted an interbody fusion. I felt the patient was very rigid, very stiff and very stable and did not need any formal interbody device. I opted for posterolateral fusion because of a very low grade spondylolisthesis. We locked down the pedicle screw construct, bone grafted over the transverse processes. We irrigated with 500 mL of fluid, closed over layers and over Hemovac drain over vancomycin powder. Sterile dressing applied. The patient returned to recovery room satisfactory and stable. No apparent complications. Sponge and needle count correct. I attest to the content of the Intraoperative Record and any orders documented therein. Any exception s are noted below.
== END 2017-08-21 02:06 | disposition home or self-care (01) ==
LOC: C.EDB 23:24
DX: R10.30 Lower abdominal pain, unspecified (principal); J45.909 Unspecified asthma, uncomplicated; Z88.2 Allergy status to sulfonamides; Z88.8 Allergy status to other drugs, medicaments and biological substances; Z91.018 Allergy to other foods; Z80.9 Family history of malignant neoplasm, unspecified; Z82.49 Family history of ischemic heart disease and other diseases of the circulatory system; Z83.79 Family history of other diseases of the digestive system; Z84.1 Family history of disorders of kidney and ureter

== ENCOUNTER 2017-09-28 19:35 | Emergency (ER) | payer OTHER ==
[~2017-09-28] VITALS: Ht 171.5 cm; Wt 97.8 kg
[2017-09-28 19:42] VITALS: TEMP 37; Ht 171.5 cm; Wt 97.8 kg
[2017-09-28] MEDS ORDERED: PENI-82 PO (20:07)
[2017-09-28] MEDS ORDERED: NAPR500T3 PO (20:07)
[2017-09-28 20:14] VITALS: BP 129/92; PULSE 96; O2SAT 97
--- NOTE | 2017-09-29 00:33 | EMERGENCY ROOM VISIT NOTE ---
History First contact with patient: 19:46 Chief Complaint: DENTAL PAIN Stated Complaint: UPPER AND LOWER TOOTH PAIN Nursing Triage Summary: left sided dental pain, possible chipped tooth History of Present Illness The patient is a 32 year old female who presents to the Emergency Room with complaints of left upper and lower dental pain. The patient believes that she found a chipped tooth on the left upper side tonight. The patient admits poor dentition. She currently does not have a dentist. She has not noticed any facial swelling, difficulty swallowing or fever. She has tried taking ibuprofen without significant relief, and rates her discomfort a 9 out of 10. Review of Systems 10 system review was performed and was negative except for pertinent positives and negatives as indicated in history of present illness Past Medical/Surgical History Medical Problems: (1) Asthma (2) Hand pain (3) Migraine Unspecified W/O Intract Mgrn W/O Status Migrainosus Surgical Problems: (1) Ear surgery Family History Cancer FH: heart disease Gallbladder disease Hypertension Kidney stones Social History Smoking Status: Current Every Day Smoker Alcohol Use: none Drug Use: none Marital Status: Housing Status: lives with family, lives with significant other Occupation Status: employed Current/Historical Medications Scheduled Naproxen (Naproxen), 1 TAB PO BID Penicillin V Potassium (Veetids), 500 MG PO QID Scheduled PRN Acetaminophen (Tylenol), 1,000 MG PO Q6H PRN for Pain Ibuprofen (Ibuprofen), 600 MG PO Q4H PRN for Pain Physical Exam Vital Signs Date Time Temp Pulse Resp B/P (MAP) Pulse Ox O2 Delivery O2 Flow Rate FiO2 09/28/17 20:14 96 18 129/92 97 Room Air 09/28/17 19:42 37.0 97 19 126/63 98 Room Air Physical Exam CONSTITUTIONAL: Healthy and well nourished. Alert and oriented X 3 with positive affect. Patient does not appear in any acute distress on exam. HEENT: Normocephalic, atraumatic. Pupils equal, round and reactive. No facial edema or erythema noted. OROPHARYNX: The patient has poor dentition. She has no gingival erythema, fluctuance or pointing. No evidence for Benigno's angina or retropharyngeal abscess. LYMPHATICS: No preauricular, submandibular, submental or cervical chain adenopathy. NECK: Full active range of motion without discomfort. RESPIRATORY: Clear to auscultation bilaterally with no wheezing, crackles, rhonchi or stridor. CARDIOVASCULAR: Regular rate and rhythm with no murmurs, rubs or gallops. INTEGUMENTARY: No rash or other significant dermatologic conditions noted. NEUROLOGIC: Facial sensations are intact. Medical Decision & Procedures ED Course Patient history and physical exam were performed. Nurse's notes were reviewed. Vital signs were reviewed and were normal. Review of electronic medical records shows that the patient is here frequently for multiple complaints. Review of the [place] Prescription Drug Monitoring Program shows that the patient has been here frequently in the latter half of 2017 with 5 narcotic prescriptions filled. The patient was instructed to find a dentist for further reevaluation and management. She may also follow-up with her PCP as needed for further treatment until she can find a dentist. The patient was provided prescriptions for Pen-Vee K and naproxen. To the patient that I do not feel comfortable in providing prescription opioids at this time. The was also wanting to know "what the strongest pain medicine is that you can give her?" The patient agreed to follow-up with a dentist for further management. She reports that she will contact her ' s dentist. She was also provided contact for Dr. Felipe who reportedly accepts all insurances. The patient voiced understanding of all discharge instructions, and rated her discomfort a 6 out of 10 at the conclusion of my exam. Medical Decision [place] Drug Monitoring Program Search Results: patient reviewed within database, see additional documentation Medication Reconcilliation Current Medication List: was personally reviewed by me Blood Pressure Screening Patient's blood pressure: Normal blood pressure Impression Primary Impression: Pain, dental Departure Information Dispostion Home / Self-Care Condition FAIR Prescriptions Naproxen (NAPROXEN) 500 Mg Tab 1 TAB PO BID for 10 Days, #20 TAB 1 Refill Prov: Dakota Whittington PA 09/28/17 Penicillin V Potassium (Veetids) 500 Mg Tab 500 MG PO QID, #40 TAB Prov: Dakota Whittington PA 09/28/17 Referrals Chandu Vincent D.M.D Forms HOME CARE DOCUMENTATION FORM, IMPORTANT VISIT INFORMATION Patient Instructions My [facility] Additional Instructions Finish all Pen-Vee K antibiotics as prescribed. Ibuprofen 800 mg and/or Tylenol 1000 mg every 8 hours. You may also alternate these medications for more effective pain relief: Ibuprofen --4 HRS--> Tylenol --4 HRS--> ibuprofen --4 HRS--> Tylenol .... Soft foods. YOU MUST SEE A DENTIST FOR DEFINITIVE CARE. THE EMERGENCY DEPARTMENT DOES NOT PROVIDE A Stent DENTAL SERVICES, REFERRALS OR CHRONIC DENTAL PAIN MANAGEMENT. YOU MAY ALSO CALL YOUR FAMILY DOCTOR FOR PAIN MANAGEMENT UNTIL YOU SEE YOUR DENTIST.
== END 2017-09-28 20:16 | disposition home or self-care (01) ==
LOC: C.EDB 19:37 → C.EDD 20:16
DX: K08.89 Other specified disorders of teeth and supporting structures (principal); J45.909 Unspecified asthma, uncomplicated; G43.909 Migraine, unspecified, not intractable, without status migrainosus; F17.200 Nicotine dependence, unspecified, uncomplicated; Z82.49 Family history of ischemic heart disease and other diseases of the circulatory system; Z84.1 Family history of disorders of kidney and ureter

== ENCOUNTER 2017-11-20 14:22 | Emergency (ER) | payer OTHER ==
[~2017-11-20] VITALS: Ht 171.5 cm; Wt 99.3 kg
[~2017-11-20 14:22] MED LIST changes: +NAPR500T3 PO; +PENI-82 PO
[2017-11-20 14:25] VITALS: TEMP 36.5; Ht 171.5 cm; Wt 99.3 kg
[2017-11-20] MEDS ORDERED: DiphenhydrAMINE HCL 50 MG/ML VIAL IV STA (14:46)
[2017-11-20] MEDS ORDERED: KETOROLAC TROMETHAMINE 30 MG/ML VIAL IV STA (14:46)
[2017-11-20] MEDS ORDERED: PROCHLORPERAZINE 5 MG/ML 2 ML VIAL IV STA (14:46)
--- NOTE | 2017-11-20 14:53 | EMERGENCY ROOM VISIT NOTE ---
History First contact with patient: 14:28 Chief Complaint: HEADACHE Stated Complaint: SICK SOMETHING WRONG WITH EYES History of Present Illness The patient is a 32 year old female who presents to the Emergency Room with complaints of a migraine headache that she woke up with this morning. she also complains of nausea and several episodes of vomiting. She denies any visual changes. She is sensitive to light. The patient has a history of migraines. She does not take any chronic medications for them. She did not try any Tylenol or ibuprofen this morning, as she was scared that she would throw them back up. She denies any fever, chills or neck pain. No recent cough , sinus congestion or fever. She denies any abdominal pain. Review of Systems 10 system review performed and negative unless noted in HPI or below Past Medical/Surgical History Medical Problems: (1) Asthma (2) Hand pain (3) Migraine Unspecified W/O Intract Mgrn W/O Status Migrainosus Surgical Problems: (1) Ear surgery Family History Cancer FH: heart disease Gallbladder disease Hypertension Kidney stones Social History Smoking Status: Never Smoker Alcohol Use: none Drug Use: none Marital Status: Housing Status: lives with family, lives with significant other Occupation Status: employed Current/Historical Medications Scheduled Ketorolac Tromethamine (Toradol), 10 MG PO TID Prochlorperazine Maleate (Compazine), 10 MG PO Q6H Scheduled PRN Acetaminophen (Tylenol), 1,000 MG PO Q6H PRN for Pain Ibuprofen (Ibuprofen), 600 MG PO Q4H PRN for Pain Naproxen (Naproxen), 1 TAB PO BID PRN for Pain Physical Exam Vital Signs Date Time Temp Pulse Resp B/P (MAP) Pulse Ox O2 Delivery O2 Flow Rate FiO2 11/20/17 17:24 82 18 138/75 98 Room Air 11/20/17 14:25 36.5 85 18 126/75 96 Room Air Physical Exam VITALS: Vitals are noted on the nurse's note and reviewed by myself. Vital signs stable. GENERAL: 32-year-old female, in no acute distress, nondiaphoretic, well- developed well-nourished. SKIN: The skin was without rashes, erythema, edema, or bruising. HEAD: Normocephalic atraumatic. EARS: External auditory canals clear, tympanic membranes pearly mcgovern without erythema or effusion bilaterally. EYES: Pupils equal round and reactive to light and accommodation. Conjunctivae without injection, sclerae without icterus. Extraocular movements intact. Horizontal nystagmus noted bilaterally NOSE: Patent, turbinates without inflammation or discharge. No sinus tenderness. MOUTH: Mucous membranes fairly dry. Tonsils are not enlarged. Pharynx without erythema or exudate. Uvula midline. Airway patent. Tongue does not deviate. NECK: Supple without nuchal rigidity. No lymphadenopathy. Cervical spine is nontender. No JVD. HEART: Regular rate and rhythm without murmurs gallops or rubs. LUNGS: Clear to auscultation bilaterally without wheezes, rales or rhonchi. No accessory muscle use. ABDOMEN: Positive bowel sounds x 4. MUSCULOSKELETAL: No muscle atrophy, erythema, or edema noted. Strength 5/5 throughout. NEURO: Patient was alert and oriented to person place and time. Cranial nerves grossly intact. Nystagmus as noted above. Normal finger to nose test. Normal sensation to touch. Medical Decision & Procedures ER Provider Diagnostic Interpretation: CT head w/o contrast IMPRESSION: 1. No acute intracranial abnormality. 2. Chronic prominence of the lateral ventricles without convincing evidence of hydrocephalus. 3. Postsurgical changes of left mastoidectomy. Electronically signed by: Nathan Haro M.D. 11/20/2017 3:37 PM Dictated Date/Time: 11/20/2017 3:34 PM The status of this report is Signed. Draft = Not yet reviewed or approved by Radiologist. Signed = Reviewed and approved by Radiologist. Laboratory Results 11/20/17 15:00 Red Blood Count 4.99, Mean Corpuscular Volume 79.2, Mean Corpuscular Hemoglobin 27.3, Mean Corpuscular Hemoglobin Concent 34.4, Mean Platelet Volume 10.0, Neutrophils (%) (Auto) 76.9, Lymphocytes (%) (Auto) 15.8, Monocytes (%) (Auto) 5.7, Eosinophils (%) (Auto) 1.2, Basophils (%) (Auto) 0.2, Neutrophils # (Auto) 6.57, Lymphocytes # (Auto) 1.35, Monocytes # (Auto) 0.49, Eosinophils # (Auto) 0.10, Basophils # (Auto) 0.02 11/20/17 15:00 Test 11/20/17 15:00 11/20/17 15:20 White Blood Count 8.55 K/uL (4.8-10.8) Red Blood Count 4.99 M/uL (4.2-5.4) Hemoglobin 13.6 g/dL (12.0-16.0) Hematocrit 39.5 % (37-47) Mean Corpuscular Volume 79.2 fL (80-100) Mean Corpuscular Hemoglobin 27.3 pg (25-34) Mean Corpuscular Hemoglobin Concent 34.4 g/dl (32-36) Platelet Count 172 K/uL (130-400) Mean Platelet Volume 10.0 fL (7.4-10.4) Neutrophils (%) (Auto) 76.9 % Lymphocytes (%) (Auto) 15.8 % Monocytes (%) (Auto) 5.7 % Eosinophils (%) (Auto) 1.2 % Basophils (%) (Auto) 0.2 % Neutrophils # (Auto) 6.57 K/uL (1.4-6.5) Lymphocytes # (Auto) 1.35 K/uL (1.2-3.4) Monocytes # (Auto) 0.49 K/uL (0.11-0.59) Eosinophils # (Auto) 0.10 K/uL (0-0.5) Basophils # (Auto) 0.02 K/uL (0-0.2) RDW Standard Deviation 38.3 fL (36.4-46.3) RDW Coefficient of Variation 13.4 % (11.5-14.5) Immature Granulocyte % (Auto) 0.2 % Immature Granulocyte # (Auto) 0.02 K/uL (0.00-0.02) Anion Gap 7.0 mmol/L (3-11) Est Creatinine Clear Calc Drug Dose 163.3 ml/min Estimated GFR () 140.0 Estimated GFR (Non- 120.8 BUN/Creatinine Ratio 18.5 (10-20) Calcium Level 9.1 mg/dl (8.5-10.1) Urine Color YELLOW Urine Appearance CLEAR (CLEAR) Urine pH 5.5 (4.5-7.5) Urine Specific [place] 1.028 (1.000-1.030) Urine Protein NEG (NEG) Urine Glucose (UA) NEG (NEG) Urine Ketones 1+ (NEG) Urine Occult Blood TRACE (NEG) Urine Nitrite NEG (NEG) Urine Bilirubin NEG (NEG) Urine Urobilinogen NEG (NEG) Urine Leukocyte Esterase NEG (NEG) Urine WBC (Auto) 1-5 /hpf (0-5) Urine RBC (Auto) 5-10 /hpf (0-4) Urine Hyaline Casts (Auto) 1-5 /lpf (0-5) Urine Epithelial Cells (Auto) >30 /lpf (0-5) Urine Bacteria (Auto) 1+ (NEG) Urine Test NEG (NEG) Urine Opiates Screen NEG (NEG) Urine Methadone, Qualitative NEG (NEG) Urine Barbiturates NEG (NEG) Urine Phencyclidine (PCP) Level NEG (NEG) Ur Amphetamine/Methamphetamine NEG (NEG) MDMA (Ecstasy) Screen NEG (NEG) Urine Benzodiazepines Screen NEG (NEG) Urine Cocaine Metabolite NEG (NEG) Urine Marijuana (THC) NEG (NEG) Medications Administered Medications (Trade) Dose Ordered Sig/Jared Route Start Time Stop Time Status Last Admin Dose Admin Diphenhydramine HCl (Benadryl Inj) 25 mg NOW STAT IV 11/20/17 14:46 11/20/17 14:49 DC 11/20/17 15:18 25 MG Prochlorperazine Edisylate (Compazine Inj) 10 mg NOW STAT IV 11/20/17 14:46 11/20/17 14:49 DC 11/20/17 15:20 10 MG Ketorolac Tromethamine (Toradol Inj) 30 mg NOW STAT IV 11/20/17 14:46 11/20/17 14:49 DC 11/20/17 15:19 30 MG Sodium Chloride 1,000 ml @ 999 mls/hr Q1H1M ONCE IV 11/20/17 15:00 11/20/17 16:00 DC 11/20/17 15:00 999 MLS/HR ED Course Patient was seen and examined Vital signs including blood pressure were reviewed medications list was verified with patient Labs were obtained, and a saline lock was established The patient was medicated with Benadryl 25 mg, Compazine 10 mg, Toradol 30 mg and hydrated with 1 L of normal saline Imaging was performed and reviewed Upon reevaluation, the patient was feeling much better. We reviewed her workup. She voiced understanding. I reviewed discharge instructions the patient. They voiced understanding and had no further questions. Medical Decision Differential includes: Acute intracranial bleed, trauma, meningitis, encephalitis, increased intracranial pressure, mass or mass effect, facial or dental infection, temporal arteritis, CVA, TIA, acute hypertensive emergency, sinusitis, carbon monoxide exposure. This patient is a 32-year-old female that presents to the emergency department complaining of a migraine headache, nausea and vomiting. On exam, the patient had horizontal nystagmus. She did not have any dizziness to suggest vertigo. She was also slightly dry. Her workups reveals no leukocytosis. She is slightly dehydrated with ketones in her urine. No acute abnormalities were noted on the head CT. The patient had excellent symptomatic relief in the emergency department. This is likely a migraine headache. The patient was hydrated in the emergency department. She is now tolerating liquids. I believe she is stable to be discharged home. She will be sent home with a 3 day course of Toradol. She was advised to follow-up closely with her primary care physician. She agrees to return to the emergency department with any new or concerning symptoms. This chart was completed in part utilizing [employer] Speech Voice Recognition software. Attempts were made to minimize the grammatical errors, random word insertions, pronoun errors and incomplete sentences. Any formal questions or concerns about the content, text or information contained within the body of this dictation should be directly addressed to the provider for clarification. Medication Reconcilliation Current Medication List: was personally reviewed by me Blood Pressure Screening Patient's blood pressure: Normal blood pressure Impression Primary Impression: Migraine Departure Information Dispostion Home / Self-Care Condition GOOD Prescriptions Prochlorperazine Maleate (COMPAZINE) 10 Mg Tab 10 MG PO Q6H for Nausea or Vomiting, #9 TAB Prov: Patricia Carvajal PA-C 11/20/17 Ketorolac Tromethamine (TORADOL) 10 Mg Tab 10 MG PO TID for Pain, #9 TAB Prov: Patricia Carvajal PA-C 11/20/17 Referrals Oskar Weber M.D. (PCP) Patient Instructions My [facility] Additional Instructions You were evaluated in the ER for a severe headache. This is likely a migraine Please stay well hydrated. Increase fluids over the next 48 hours Please take Toradol 1 tab every 8 hours as needed for headache Please take Compazine 1 tab every 6 hours as needed for nausea You may also take Tylenol 650 mg every 6 hours for additional pain relief Please follow up with your primary care physician as soon as possible for a follow-up appointment Do not hesitate to return to the emergency department with any new, worsening or concerning symptoms; especially, fever or sudden, severe headache
[2017-11-20] MEDS ORDERED: NAPR500T3 PO (14:58)
[2017-11-20] MEDS ORDERED: SODIUM CHLORIDE 0.9% 1000ML 1,000 ML IV ONE (15:00)
[2017-11-20 15:11] LABS: BASO % 0.2 %; BASO ABS # 0.02 K/uL (0-0.2); EOS % 1.2 %; HEMATOCRIT 39.5 % (37-47); HEMOGLOBIN 13.6 g/dL (12.0-16.0); IG# 0.02 K/uL (0.00-0.02); LYMPH % 15.8 %; LYMPH ABS # 1.35 K/uL (1.2-3.4); MEAN CELL VOLUME 79.2 fL (80-100); MEAN CORPUSCULAR HEMOGLOBIN 27.3 pg (25-34); MEAN CORPUSCULAR HGB CONC 34.4 g/dl (32-36); MONO % 5.7 %; MONO ABS # 0.49 K/uL (0.11-0.59); NEUT % 76.9 %; NEUT ABS # 6.57 K/uL (1.4-6.5); PLATELET COUNT 172 K/uL (130-400); RED CELL DISTRIBUTION WIDTH CV 13.4 % (11.5-14.5); RED CELL DISTRIBUTION WIDTH SD 38.3 fL (36.4-46.3); WHITE BLOOD COUNT 8.55 K/uL (4.8-10.8)
[2017-11-20 15:29] LABS: CALCIUM 9.1 mg/dl (8.5-10.1); CREATININE 0.61 mg/dl (0.60-1.20); POTASSIUM 4.1 mmol/L (3.5-5.1)
--- NOTE | 2017-11-20 15:38 | DIAGNOSTIC IMAGING REPORT ---
HEAD WITHOUT CONTRAST (CT) CLINICAL HISTORY: 32 years-old Female presenting with [place] hx migraines nystagmus on exam. TECHNIQUE: Multidetector CT imaging of the head was performed without the use of intravenous contrast. IV contrast: None. A dose lowering technique was used consistent with the principles of ALARA (as low as reasonably achievable). COMPARISON: 03/13/2015. CT DOSE (mGy.cm): The estimated cumulative dose is 712.55 mGy.cm. FINDINGS: Anatomy And Physiology Instructor topogram: Unremarkable. Mild prominence of the lateral ventricles. No dilatation of the third ventricle. The configuration is unchanged since 2014. No periventricular white matter hypoattenuation to suggest acute hydrocephalus. Brain parenchyma normal in appearance with preserved mcgovern-white differentiation. No mass effect or midline shift. No hemorrhage or acute territorial infarct. No extra-axial fluid collection. Evidence of prior left mastoidectomy. Paranasal sinuses clear. Calvarium intact. IMPRESSION: 1. No acute intracranial abnormality. 2. Chronic prominence of the lateral ventricles without convincing evidence of hydrocephalus. 3. Postsurgical changes of left mastoidectomy. Electronically signed by: Nathan Haro M.D. 11/20/2017 3:37 PM Dictated Date/Time: 11/20/2017 3:34 PM
[2017-11-20] MEDS ORDERED: KETO10TA PO (16:04)
[2017-11-20] MEDS ORDERED: PROC1TAB5 PO (16:04)
[2017-11-20 17:24] VITALS: BP 138/75; PULSE 82; O2SAT 98
--- NOTE | 2017-11-21 00:29 | EMERGENCY ROOM VISIT NOTE ---
ED Visit Note First contact with patient: 14:28 I reviewed the patient's past medical history, medications, and visit nursing notes. I discussed the case with the physician gallery assistant, examined the patient, and agree with the findings and plan as documented in the physician assistants note.
== END 2017-11-20 17:25 | disposition home or self-care (01) ==
LOC: C.EDB 14:23 → C.EDD 17:25
DX: G43.909 Migraine, unspecified, not intractable, without status migrainosus (principal); J45.909 Unspecified asthma, uncomplicated; Z80.9 Family history of malignant neoplasm, unspecified; Z82.49 Family history of ischemic heart disease and other diseases of the circulatory system; Z87.442 Personal history of urinary calculi; Z79.899 Other long term (current) drug therapy

== ENCOUNTER 2017-12-17 15:05 | Emergency (ER) | payer OTHER ==
[~2017-12-17] VITALS: Ht 171.5 cm; Wt 99.5 kg
[~2017-12-17 15:05] MED LIST changes: -MTR/600 PO; +NAPR-1231 PO; -NAPR500T3 PO; -PENI-82 PO
[2017-12-17 15:12] VITALS: TEMP 36.9; Ht 171.5 cm; Wt 99.5 kg
[2017-12-17] MEDS ORDERED: ACETAMINOPHEN 500 MG TAB PO STA (15:27)
--- NOTE | 2017-12-17 15:36 | EMERGENCY ROOM VISIT NOTE ---
ED Visit Note First contact with patient: 15:17 CHIEF COMPLAINT: Left foot and ankle pain HISTORY OF PRESENT ILLNESS: This 32-year-old patient presents to the emergency department, ambulatory, 1 day after sustaining an injury to the left ankle and foot when she struck the lateral aspect of the foot and ankle against the faucet of the bathtub. The patient states she was taking a bath and trying to slide down below the water when her foot slipped, striking the fossa. She states she is experiencing pain from the lateral left heel into the lateral ankle and radiating down into the toes and up towards the knee. 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 She states she was trying to stay off of the foot, but was unable at work. She was eventually sent home and advised to come here for evaluation. The patient did take 800 mg ibuprofen today without relief of her pain. She denies any previous injury to this ankle, but does state she has a "history of weak ankles". The patient rates the pain as sharp when walking and 9/10. The patient is able to bear weight on the foot, but states it is almost unbearable. Constant pain, worse with movement, weight bearing, and the dependent position. No knee pain, the patient is able to move their toes. No numbness or weakness of the foot, no laceration. The patient denies any other injury or fall. REVIEW OF SYSTEMS: A 6 system review of systems was completed with positives and pertinent negatives listed in the HPI. ALLERGIES: Hydrocortisone, Macrobid, sulfa, cefepime, amoxicillin MEDICATIONS: None PMH: None SOCIAL HISTORY: The patient lives locally with family. She denies drug, alcohol , tobacco use. PHYSICAL EXAM: Vital Signs: Reviewed Nurse's notes, vital signs stable. GENERAL : This is a 32-year-old obese white female, no acute distress, but appears in pain, well-developed, well-nourished. MENTAL STATUS: Alert, oriented to person place and time, and cooperative. MUSCULOSKELETAL: The left ankle is not obviously swollen, but is tender over the lateral malleolus and lateral calcaneus, but the skin is intact and there is no ligamentous instability. There is no fifth metatarsal tenderness. There is no tenderness over the rest of the foot. There is no calf or tibia/fibular tenderness. There is no visual deformity. The foot and toes are warm and well-perfused. Dorsalis pedis pulse 2+. Sensation to pain and light touch is intact. Capillary refill less than 2 seconds. RADIOLOGY: LEFT ANKLE 3 VIEWS CLINICAL HISTORY: Left ankle injury. FINDINGS: 3 views of the left ankle are obtained. No prior studies are available for comparison at the time of dictation. The skeletal structures are well mineralized. No fracture is seen. The ankle mortise is intact. There is no joint effusion. There are tiny dorsal and plantar calcaneal enthesophytes. Mild soft tissue swelling is present around the ankle. IMPRESSION: 1. Mild soft tissue swelling with no radiographic evidence of left ankle fracture. 2. Heel spurs. Electronically signed by: Morgan Zepeda M.D. 12/17/2017 4:16 PM Dictated Date/Time: 12/17/2017 4:15 PM LEFT FOOT 3 VIEWS CLINICAL HISTORY: Left foot pain and injury. FINDINGS: 3 views of the left foot are obtained. No prior studies are available for comparison at the time of dictation. The skeletal structures are well mineralized. There is no radiographic evidence of fracture. The joint spaces of the foot are well-maintained. Small dorsal and plantar calcaneal enthesophytes are observed. Mild benign-appearing sclerotic change is noted in the fifth proximal phalanx. Mild degenerative spurring is seen along the dorsal aspect of the tarsal bones. The overlying soft tissues are within normal limits. IMPRESSION: No acute bony abnormality is seen in the left foot. Electronically signed by: Morgan Zepeda M.D. 12/17/2017 4:17 PM Dictated Date/Time: 12/17/2017 4:16 PM EMERGENCY DEPARTMENT COURSE: I examined the patient. She was offered Toradol for pain and declined. She has recently taken 800 mg ibuprofen, so I did offer her Tylenol. The patient was agreeable. She was given 1 g p.o. Tylenol. X- rays of the left foot and ankle were reviewed by myself and read by radiology and reveal no acute bony abnormalities. I did offer a gel splint or other sturdier splint, and the patient declines. An Henry wrap was applied to the ankle under my direction and the position was satisfactory. Neurovascular status was rechecked and intact. I offered crutches, and the patient states she does not want them, as she will not be able to work with the crutches. She states she does have some at home. I offered a work note, and the patient states "do not bother, my work will let me off anyway". The patient was given a work note in case she is able to take off and rest tonight. The patient was seen by Dr. Abarca. Discharge instructions reviewed. The patient was discharged home in good condition. I attest that I have personally reviewed the patient's current medication list. Patient was found to have normal blood pressure on screening and does not require follow-up. Etiologies such as soft tissue injury, fracture, dislocation, neurovascular compromise, compartment syndrome, as well as others were entertained. DIAGNOSIS: Left foot and ankle contusion The chart was completed utilizing [employer] Speech voice recognition software. Grammatical errors, random word insertions, pronoun errors, and incomplete sentences are an occasional consequence of this system due to software limitations, ambient noise, and hardware issues. Any formal questions or concerns about the content, text, or information contained within the body of this dictation should be directly addressed to the provider for clarification. Problem List Medical Problems: (1) Asthma Status: Chronic (2) Hand pain Status: Resolved (3) Migraine Unspecified W/O Intract Mgrn W/O Status Migrainosus Status: Chronic Surgical Problems: (1) Ear surgery Status: Resolved Current/Historical Medications Scheduled PRN Acetaminophen (Tylenol), 1,000 MG PO Q6H PRN for Pain Ibuprofen (Ibuprofen), 600 MG PO Q4H PRN for Pain Allergies Coded Allergies: Cefepime (Verified Allergy, Intermediate, redness to chest, hives, itching , 09/28/17) Sulfa Antibiotics (Verified Allergy, Intermediate, HIVES, 09/28/17) Yeast (Verified Allergy, Mild, 09/28/17) Hydrocortisone (Verified Allergy, Unknown, Hives/Rash, 09/28/17) Otic Suspenion Sulfamethoxazole w/Trimethoprim (Verified Allergy, Unknown, HIVES, 09/28/17) Nitrofurantoin (Verified Adverse Reaction, Unknown, ITCHING, 09/28/17) Vital Signs Date Time Temp Pulse Resp B/P (MAP) Pulse Ox O2 Delivery O2 Flow Rate FiO2 12/17/17 16:34 86 16 145/97 97 12/17/17 15:12 36.9 102 16 165/98 98 Room Air Medications Administered Medications (Trade) Dose Ordered Sig/Jared Route Start Time Stop Time Status Last Admin Dose Admin Acetaminophen (Tylenol Tab) 1,000 mg NOW STAT PO 12/17/17 15:27 12/17/17 15:30 DC 12/17/17 15:56 1,000 MG Departure Information Impression Primary Impression: Contusion of foot Additional Impression: Contusion of ankle, left Dispostion Home / Self-Care Condition GOOD Referrals Oskar Weber M.D. (PCP) Patient Instructions ED Contusion Foot, My [facility] Additional Instructions You have been treated in the Emergency Department for an Ankle/foot contusion. For pain control, you can use the following [id number] medicines (if >12 yo): Ibuprofen(Motrin, Advil) may be used for fever or pain. Use 600mg every six hours as needed. Take with food. Avoid using more than 2400mg in a 24 hour period. Do not use 2400mg per day for more than three consecutive days without physician direction. Prolonged inappropriate use can lead to stomach upset or ulcers. (AND/OR) Acetaminophen(Tylenol) may be used for fever or pain. Use 1000mg every six hours as needed. Avoid using more than 3000mg in a 24 hour period. If this is a recent injury (<24 hrs), ice can be applied to the area of pain for the first 3 days to help decrease pain and inflammation. Contact orthopedics if no improvement in symptoms in 1-2 weeks. Use the henry wrap as needed for compression and swelling. This will help with discomfort. Use the crutches you have at home to help with weight-bearing and mobility as needed. Return to the Emergency Department if your current symptoms worsen despite treatment course outlined above, or if you develop any of the following symptoms : intractable pain despite aforementioned treatment course or new onset of numbness or tingling of the foot. Problem Qualifiers Primary Impression: Contusion of foot Encounter type: initial encounter Laterality: left Qualified Codes: S90.32XA - Contusion of left foot, initial encounter Additional Impression: Contusion of ankle, left Encounter type: initial encounter Qualified Codes: S90.02XA - Contusion of left ankle, initial encounter
--- NOTE | 2017-12-17 16:17 | DIAGNOSTIC IMAGING REPORT ---
LEFT ANKLE 3 VIEWS CLINICAL HISTORY: Left ankle injury. FINDINGS: 3 views of the left ankle are obtained. No prior studies are available for comparison at the time of dictation. The skeletal structures are well mineralized. No fracture is seen. The ankle mortise is intact. There is no joint effusion. There are tiny dorsal and plantar calcaneal enthesophytes. Mild soft tissue swelling is present around the ankle. IMPRESSION: 1. Mild soft tissue swelling with no radiographic evidence of left ankle fracture. 2. Heel spurs. Electronically signed by: Morgan Zepeda M.D. 12/17/2017 4:16 PM Dictated Date/Time: 12/17/2017 4:15 PM
--- NOTE | 2017-12-17 16:18 | DIAGNOSTIC IMAGING REPORT ---
LEFT FOOT 3 VIEWS CLINICAL HISTORY: Left foot pain and injury. FINDINGS: 3 views of the left foot are obtained. No prior studies are available for comparison at the time of dictation. The skeletal structures are well mineralized. There is no radiographic evidence of fracture. The joint spaces of the foot are well-maintained. Small dorsal and plantar calcaneal enthesophytes are observed. Mild benign-appearing sclerotic change is noted in the fifth proximal phalanx. Mild degenerative spurring is seen along the dorsal aspect of the tarsal bones. The overlying soft tissues are within normal limits. IMPRESSION: No acute bony abnormality is seen in the left foot. Electronically signed by: Morgan Zepeda M.D. 12/17/2017 4:17 PM Dictated Date/Time: 12/17/2017 4:16 PM
[2017-12-17 16:34] VITALS: BP 145/97; PULSE 86; O2SAT 97
[2017-12-17] MEDS ORDERED: MTR/600 PO (18:12)
--- NOTE | 2017-12-17 22:58 | EMERGENCY ROOM VISIT NOTE ---
ED Visit Note First contact with patient: 15:47 The patient was seen and examined with Loi. I agree with the history, physical and findings. Please see the note for disposition and details.
== END 2017-12-17 16:51 | disposition home or self-care (01) ==
LOC: C.EDB 15:06 → C.EDD 16:51
DX: S90.02XA Contusion of left ankle, initial encounter (principal); S90.32XA Contusion of left foot, initial encounter; W22.09XA Striking against other stationary object, initial encounter; Y93.E1 Activity, personal bathing and showering; J45.909 Unspecified asthma, uncomplicated; Z88.1 Allergy status to other antibiotic agents; Z88.2 Allergy status to sulfonamides; Z88.8 Allergy status to other drugs, medicaments and biological substances

== ENCOUNTER 2018-02-12 03:15 | Emergency (ER) | payer OTHER ==
[~2018-02-12] VITALS: Ht 170.2 cm; Wt 103.4 kg
[~2018-02-12 03:15] MED LIST changes: +MTR/600 PO; -NAPR-1231 PO
[2018-02-12 03:21] VITALS: TEMP 36.7; Ht 170.2 cm; Wt 103.4 kg
[2018-02-12] MEDS ORDERED: SODIUM CHLORIDE 0.9% 500ML 500 ML IV STA (03:25)
[2018-02-12] MEDS ORDERED: ONDANSETRON INJ 2 MG/ML 2 ML VIAL IV STA (03:25)
[2018-02-12] MEDS ORDERED: MoRPHine SULFATE 4 MG/ML 1 ML CARP\\VIAL IV STA (03:25)
[2018-02-12] MEDS ORDERED: KETOROLAC TROMETHAMINE 30 MG/ML VIAL IV STA (03:25)
[2018-02-12] MEDS ORDERED: SODIUM CHLORIDE 0.9% 1000ML 1,000 ML IV STA (03:25)
--- NOTE | 2018-02-12 03:42 | EMERGENCY ROOM VISIT NOTE ---
History Report prepared by Phyllis: Eduardo Levin Under the Supervision of: Dr. Yane Khan M.D. First contact with patient: 03:21 Chief Complaint: BACK PAIN Stated Complaint: SEVERE RIGHT LWR BACK PAIN History of Present Illness The patient is a 33 year old female who presents to the Emergency Room with complaints of persistent right lower back pain since 1800 yesterday. She notes the pain is worsened with movement. She tried Tylenol, though no relief. She has a history of kidney stones. She is on her menstrual cycle and cannot tell if there is blood present in her urine. She notes nausea, though denies any vomiting. She notes diarrhea yesterday evening. She denies any bloody stools. She has a history of migraines. She reports a history of cysts in her abdomen. She denies any chance of . Source of History: patient Onset: 1800 yesterday Position: back (right lower) Timing: other (persistent) Modifying Factors (Worsening): movement Associated Symptoms: + nausea, + diarrhea, No vomiting, No melena, No hematochezia Review of Systems See HPI for pertinent positives & negatives. A total of 10 systems reviewed and were otherwise negative. Past Medical & Surgical Medical Problems: (1) Asthma (2) Hand pain (3) Migraine Unspecified W/O Intract Mgrn W/O Status Migrainosus Surgical Problems: (1) Ear surgery Family History Cancer FH: heart disease Gallbladder disease Hypertension Kidney stones Social History Smoking Status: Never Smoker Alcohol Use: none Drug Use: none Marital Status: Housing Status: lives with family, lives with significant other Occupation Status: employed Current/Historical Medications Scheduled PRN Acetaminophen (Tylenol), 1,000 MG PO Q6H PRN for Pain Cyclobenzaprine Hcl (Flexeril), 5 MG PO TID PRN for Muscle Spasms Ibuprofen (Ibuprofen), 600 MG PO Q4H PRN for Pain Allergies Coded Allergies: Cefepime (Verified Allergy, Intermediate, redness to chest, hives, itching , 09/28/17) Sulfa Antibiotics (Verified Allergy, Intermediate, HIVES, 09/28/17) Yeast (Verified Allergy, Mild, 09/28/17) Hydrocortisone (Verified Allergy, Unknown, Hives/Rash, 09/28/17) Otic Suspenion Sulfamethoxazole w/Trimethoprim (Verified Allergy, Unknown, HIVES, 09/28/17) Nitrofurantoin (Verified Adverse Reaction, Unknown, ITCHING, 09/28/17) Physical Exam Vital Signs Date Time Temp Pulse Resp B/P (MAP) Pulse Ox O2 Delivery O2 Flow Rate FiO2 02/12/18 05:56 88 20 130/82 99 02/12/18 04:55 77 18 134/80 99 Room Air 02/12/18 03:21 36.7 91 18 135/89 98 Room Air Physical Exam Vital signs reviewed. General: Well-appearing, in no significant distress. HEENT: No scleral icterus, PERRLA, neck supple. Atraumatic. Cardiovascular: Regular rate and rhythm, no extra sounds. Pulmonary: Clear to auscultation bilaterally, normal work of breathing. Abdomen: Soft, nontender, nondistended, positive bowel sounds. Musculoskeletal: Atraumatic, no peripheral edema. Right CVA tenderness. Neurologic: Patient awake alert and oriented x 3. Ambulatory without difficulty. Skin: Warm, dry, no rash Medical Decision & Procedures ER Provider Diagnostic Interpretation: Radiology results as stated below per my review and interpretation: KUB XR: Moderate fecal retention particularly in the ascending colon. No evidence of bowel obstruction. No free air. No right sided kidney stone is appreciated. Radiology results as stated below per my review and radiologist interpretation: Renal US: No renal stones or hydronephrosis. Radiologist: Christiano Wells MD Study ready at 04:26 and initial results transmitted at 05:14 Laboratory Results 02/12/18 03:46 Red Blood Count 5.09, Mean Corpuscular Volume 79.4, Mean Corpuscular Hemoglobin 26.7, Mean Corpuscular Hemoglobin Concent 33.7, Mean Platelet Volume 11.1, Neutrophils (%) (Auto) 58.5, Lymphocytes (%) (Auto) 28.7, Monocytes (%) (Auto) 9.2, Eosinophils (%) (Auto) 3.0, Basophils (%) (Auto) 0.3, Neutrophils # (Auto) 3.67, Lymphocytes # (Auto) 1.80, Monocytes # (Auto) 0.58, Eosinophils # (Auto) 0.19, Basophils # (Auto) 0.02 02/12/18 03:46 Test 02/12/18 03:40 02/12/18 03:46 Urine Color YELLOW Urine Appearance CLOUDY (CLEAR) Urine pH 5.0 (4.5-7.5) Urine Specific [place] 1.027 (1.000-1.030) Urine Protein NEG (NEG) Urine Glucose (UA) NEG (NEG) Urine Ketones NEG (NEG) Urine Occult Blood 3+ (NEG) Urine Nitrite NEG (NEG) Urine Bilirubin NEG (NEG) Urine Urobilinogen NEG (NEG) Urine Leukocyte Esterase NEG (NEG) Urine WBC (Auto) 1-5 /hpf (0-5) Urine RBC (Auto) >30 /hpf (0-4) Urine Hyaline Casts (Auto) 1-5 /lpf (0-5) Urine Epithelial Cells (Auto) >30 /lpf (0-5) Urine Bacteria (Auto) NEG (NEG) Urine Test NEG (NEG) White Blood Count 6.28 K/uL (4.8-10.8) Red Blood Count 5.09 M/uL (4.2-5.4) Hemoglobin 13.6 g/dL (12.0-16.0) Hematocrit 40.4 % (37-47) Mean Corpuscular Volume 79.4 fL (80-100) Mean Corpuscular Hemoglobin 26.7 pg (25-34) Mean Corpuscular Hemoglobin Concent 33.7 g/dl (32-36) Platelet Count 183 K/uL (130-400) Mean Platelet Volume 11.1 fL (7.4-10.4) Neutrophils (%) (Auto) 58.5 % Lymphocytes (%) (Auto) 28.7 % Monocytes (%) (Auto) 9.2 % Eosinophils (%) (Auto) 3.0 % Basophils (%) (Auto) 0.3 % Neutrophils # (Auto) 3.67 K/uL (1.4-6.5) Lymphocytes # (Auto) 1.80 K/uL (1.2-3.4) Monocytes # (Auto) 0.58 K/uL (0.11-0.59) Eosinophils # (Auto) 0.19 K/uL (0-0.5) Basophils # (Auto) 0.02 K/uL (0-0.2) RDW Standard Deviation 37.9 fL (36.4-46.3) RDW Coefficient of Variation 13.2 % (11.5-14.5) Immature Granulocyte % (Auto) 0.3 % Immature Granulocyte # (Auto) 0.02 K/uL (0.00-0.02) Anion Gap 7.0 mmol/L (3-11) Est Creatinine Clear Calc Drug Dose 149.1 ml/min Estimated GFR () 134.8 Estimated GFR (Non- 116.3 BUN/Creatinine Ratio 16.9 (10-20) Calcium Level 9.0 mg/dl (8.5-10.1) Total Bilirubin 0.3 mg/dl (0.2-1) Direct Bilirubin < 0.1 mg/dl (0-0.2) Aspartate Amino Transf (AST/SGOT) 17 U/L (15-37) Alanine Aminotransferase (ALT/SGPT) 22 U/L (12-78) Alkaline Phosphatase 89 U/L (45-117) Total Protein 7.7 gm/dl (6.4-8.2) Albumin 3.9 gm/dl (3.4-5.0) Laboratory results per my review. Medications Administered Medications (Trade) Dose Ordered Sig/Jared Route Start Time Stop Time Status Last Admin Dose Admin Sodium Chloride 500 ml @ 999 mls/hr Q31M STAT IV 02/12/18 03:25 02/12/18 03:55 DC 02/12/18 03:25 999 MLS/HR Sodium Chloride 1,000 ml @ 150 mls/hr Q6H40M STAT IV 02/12/18 03:25 02/12/18 06:32 DC 02/12/18 03:49 150 MLS/HR Ketorolac Tromethamine (Toradol Inj) 30 mg NOW STAT IV 02/12/18 03:25 02/12/18 03:29 DC 02/12/18 03:48 30 MG Ondansetron HCl (Zofran Inj) 4 mg NOW STAT IV 02/12/18 03:25 02/12/18 03:29 DC 02/12/18 03:48 4 MG Morphine Sulfate (MoRPHine SULFATE INJ) 4 mg NOW STAT IV 02/12/18 03:25 02/12/18 03:29 DC 02/12/18 03:48 4 MG Cyclobenzaprine HCl (Flexeril Tab) 5 mg NOW STAT PO 02/12/18 05:41 02/12/18 05:43 DC 02/12/18 05:54 5 MG ED Course 0330: Past medical records reviewed. The patient was evaluated in room A10. A complete history and physical examination was performed. 0325: Ordered Morphine Sulfate 4 mg IV, Zofran 4 mg IV, Toradol 30 mg IV, Sodium Chloride 1,000 ml @ 150 mls/hr IV, and Sodium Chloride 500 ml @ 999 mls/ hr IV 0539: I reassessed the patient at this time. She has pain with straight leg raise on right. No recurrent right CVA tenderness. I discussed the results and treatment plan with the patient. I answered all pertaining questions that she had. She expressed understanding and verbalized agreement. The patient will be discharged home. 0541: Ordered Flexeril 5 mg PO Medical Decision Differential diagnosis: Etiologies such as renal colic, appendicitis, diverticulitis, mesenteric ischemia, aortic pathology, infections, inflammatory bowel disease, PUD, biliary pathology, UTI, as well as others were entertained. This patient was evaluated and appeared to be in discomfort. IV access was obtained and laboratory work was drawn. The patient was hydrated with normal saline solution. Review of patient's record indicates [address] scans of the abdomen and pelvis. Patient has also had multiple ultrasounds and KUBs. There is no evidence of urinary calculus on the studies. Ultrasound of the retroperitoneum was performed and is negative for obstructive pathology. KUB was performed and is negative to my interpretation. The patient was given a dose of IV Toradol, IV morphine, IV Zofran. She did have some resolution of her symptoms. I do not think the patient is suffering from an acute cholecystitis or acute appendicitis at this time. Additional CT imaging is not indicated currently. On my reevaluation, the patient did have some discomfort with straight leg raise of the right leg. She was given 5 mg of p.o. Flexeril and discharged with a prescription. She was advised to use ibuprofen as needed for pain. She will follow-up with her PCP this week for reevaluation and return to the ED for worsening of symptoms or any medical concerns. Medication Reconcilliation Current Medication List: was personally reviewed by me Blood Pressure Screening Patient's blood pressure: Elevated blood pressure Blood pressure disposition: Referred to PCP Impression Primary Impression: Lumbar strain Scribe Attestation The scribe's documentation has been prepared under my direction and personally reviewed by me in its entirety. I confirm that the note above accurately reflects all work, treatment, procedures, and medical decision making performed by me. Departure Information Dispostion Home / Self-Care Prescriptions Cyclobenzaprine Hcl (FLEXERIL) 5 Mg Tab 5 MG PO TID Y for Muscle Spasms, #21 TAB Prov: Yane Khan M.D. 02/12/18 Referrals Oskar Weber M.D. (PCP) Forms HOME CARE DOCUMENTATION FORM, IMPORTANT VISIT INFORMATION Patient Instructions My [facility] Additional Instructions Diagnosis: Right lumbar strain Ibuprofen 600 mg every 6 hours as needed for pain with food. Flexeril 5 mg 3 times daily as needed for muscular spasm. Do not drive on this medical concerns. Warm compresses and gentle stretching as needed for relief of your discomfort. Follow-up with your physician this week for reevaluation. Return to the ER for worsening of symptoms or any medical concerns.
[2018-02-12 04:01] LABS: BASO % 0.3 %; BASO ABS # 0.02 K/uL (0-0.2); EOS ABS # 0.19 K/uL (0-0.5); HEMATOCRIT 40.4 % (37-47); HEMOGLOBIN 13.6 g/dL (12.0-16.0); IG# 0.02 K/uL (0.00-0.02); LYMPH % 28.7 %; MEAN CELL VOLUME 79.4 fL (80-100); MEAN CORPUSCULAR HEMOGLOBIN 26.7 pg (25-34); MEAN CORPUSCULAR HGB CONC 33.7 g/dl (32-36); MEAN PLATELET VOLUME 11.1 fL (7.4-10.4); MONO % 9.2 %; MONO ABS # 0.58 K/uL (0.11-0.59); NEUT % 58.5 %; NEUT ABS # 3.67 K/uL (1.4-6.5); PLATELET COUNT 183 K/uL (130-400); RED CELL DISTRIBUTION WIDTH CV 13.2 % (11.5-14.5); RED CELL DISTRIBUTION WIDTH SD 37.9 fL (36.4-46.3); WHITE BLOOD COUNT 6.28 K/uL (4.8-10.8)
[2018-02-12 04:24] LABS: ALBUMIN 3.9 gm/dl (3.4-5.0); ALKALINE PHOSPHATASE 89 U/L (45-117); ALT/SGPT 22 U/L (12-78); AST/SGOT 17 U/L (15-37); BLOOD UREA NITROGEN 11 mg/dl (7-18); CARBON DIOXIDE 27 mmol/L (21-32); CREATININE 0.67 mg/dl (0.60-1.20); GLUCOSE 98 mg/dl (70-99); POTASSIUM 3.9 mmol/L (3.5-5.1); SODIUM 141 mmol/L (136-145); TOTAL PROTEIN 7.7 gm/dl (6.4-8.2)
[2018-02-12] MEDS ORDERED: CYCLOBENZAPRINE HCL 5 MG TAB PO STA (05:41)
[2018-02-12] MEDS ORDERED: CYCL5TAB PO (05:48)
[2018-02-12 05:56] VITALS: BP 130/82; PULSE 88; O2SAT 99
--- NOTE | 2018-02-12 06:36 | DIAGNOSTIC IMAGING REPORT ---
RENAL ULTRASOUND HISTORY: Right flank pain COMPARISON: None. FINDINGS: Right kidney: 10.9 cm. No hydronephrosis. Normal corticomedullary differentiation and cortical thickness. Left kidney: 11.2 cm. No hydronephrosis. Normal corticomedullary differentiation and cortical thickness. Bladder: No bladder wall thickening. The bilateral ureteral jets were not identified. The bladder was not well distended. IMPRESSION: No hydronephrosis. Electronically signed by: Bossman Rogers M.D. 02/12/2018 6:35 AM Dictated Date/Time: 02/12/2018 6:34 AM
--- NOTE | 2018-02-12 08:11 | DIAGNOSTIC IMAGING REPORT ---
KUB HISTORY: right flank pain COMPARISON: Chest and abdominal series 08/21/2017. FINDINGS: The bowel gas pattern is unremarkable. There are no dilated loops of small bowel to suggest an obstruction. No renal calculi. No ureteral calculi. Calcifications in the left deep pelvis likely represent phleboliths. These remain unchanged. No pneumoperitoneum or pneumatosis. IMPRESSION: No renal or ureteral stones. Electronically signed by: Bossman Rogers M.D. 02/12/2018 8:10 AM Dictated Date/Time: 02/12/2018 8:09 AM
== END 2018-02-12 05:57 | disposition home or self-care (01) ==
LOC: C.EDB 03:16 → C.EDA 05:57
DX: S39.012A Strain of muscle, fascia and tendon of lower back, initial encounter (principal); X58.XXXA Exposure to other specified factors, initial encounter; R03.0 Elevated blood-pressure reading, without diagnosis of hypertension; R11.0 Nausea; J45.909 Unspecified asthma, uncomplicated; Z88.1 Allergy status to other antibiotic agents; Z88.2 Allergy status to sulfonamides; Z91.018 Allergy to other foods; Z88.8 Allergy status to other drugs, medicaments and biological substances